=== PATIENT | female | born 1985 | race Caucasian/White ===

== ENCOUNTER 2020-06-17 09:16 | Emergency (ER) | payer OTHER, SELFPAY ==
[2020-06-17 09:21] VITALS: BP 116/87; PULSE 92; RESP 18; TEMP 37.1; O2SAT 100
--- NOTE | 2020-06-17 09:54 | ED.SKABFB ---
HPI - Skin/Abscess/Foreign Bdy General Chief complaint: Skin/Abscess/Foreign Body Stated complaint: rash on arms/legs Time Seen by Provider: 06/17/20 09:30 Source: patient Mode of arrival: ambulatory Limitations: no limitations History of Present Illness HPI narrative: Noreen Maier is a 34 yo female wiyh a PMH of anxiety, ADD, [facility] with complaints of rash on medial side of both arms and around waistband. 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 EYES: Denies visual changes, redness, discharge. ENT: Denies rhinorrhea, congestion, sore throat, otalgia. CARDIOVASCULAR: Denies chest pain, palpitations, edema. RESPIRATORY: Denies dyspnea, wheezing, cough GASTROINTESTINAL: Denies abdominal pain, nausea, vomiting, diarrhea. GENITOURINARY: Denies dysuria, hematuria, abnormal discharge SKIN: Rash on arms and abdomen NEUROLOGIC: Denies numbness, or focal weakness. PSYCHIATRIC: Denies anxiety or depression. [facility] Past Medical History Medical History Anxiety Overweight (BMI 25.0-29.9) Seizure disorder remote history. 2 seizures 10 years ago. Family History Family History Other No acute medical problems Social History Social History (Updated 06/17/20 @ 09:56 by Nidhi Hercules CNP) Smoking status: Former smoker Gender identity (if verbalized by the patient): Female Exam Narrative: Exam Narrative: GENERAL: This is a well-nourished, well-developed patient, in mild distress. HEAD: normocephalic, atraumatic. EYES: PERRL. Sclera clear/white. Vision is grossly intact. EARS: External ears normal, auditory canals clear and without drainage, TMs normal without perforation. Hearing grossly intact. NOSE: External nose normal without nasal discharge, nares without redness, no rhinorrhea. THROAT: Mucous membranes moist, posterior pharynx NECK: Neck supple, non-tender CARDIOVASCULAR: Regular rate and rhythm without murmurs, gallops, or rubs. RESPIRATORY: Clear to auscultation. Breath sounds equal bilaterally. No wheezes, rales, or rhonchi. GASTROINTESTINAL: Abdomen soft, non-tender, SKIN: warm, intact with with heavy rash on medial upper arms both arms and across abdomen, a few spots on upper thighs, waistline-no lesions between fingers or toes NEURO: awake, alert, and oriented to person, place and time. There were no obvious focal neurologic abnormalities. Steady gait EXTREMITIES: Normal range of motion. BACK: Nontender without deformity Course Course Emergency Course: Patient came to [facility] with rash Treated with triamcinolone and then permethrin as a secondary treatment if Triamcinolone does not work-keep arms covered warm handling her younger children Vital Signs Vital signs: Vital Signs Temperature 98.8 F 06/17/20 09:21 Pulse Rate 92 06/17/20 09:21 Respiratory Rate 18 06/17/20 09:21 Blood Pressure 116/87 06/17/20 09:21 Pulse Oximetry 100 06/17/20 09:21 Temperature 98.8 F 06/17/20 09:21 Pulse Rate 92 06/17/20 09:21 Respiratory Rate 18 06/17/20 09:21 Blood Pressure 116/87 06/17/20 09:21 Pulse Oximetry 100 06/17/20 09:21 MDM - Skin/Abscess/Foreign Bdy Differential Diagnosis Differential diagnosis: Likely urti
== END 2020-06-17 10:03 | disposition home or self-care (01) ==
PROVIDERS: Emergency Provider Nurse Practitioner; PCP Family Medicine
DX: L50.9 Urticaria, unspecified (principal); Z87.891 Personal history of nicotine dependence; F41.9 Anxiety disorder, unspecified
CPT/HCPCS: 99213; G0463

== ENCOUNTER 2020-10-10 02:57 | Emergency (ER) | payer OTHER, SELFPAY ==
[2020-10-10 03:02] VITALS: BP 146/92; PULSE 104; RESP 20; TEMP 36.2; O2SAT 100
[2020-10-10] MEDS: diazePAM (*CRX) 5 MG TABLET PO (04:04)
[2020-10-10] MEDS: KETOROLAC (*BKC) 60 MG/2 ML VIAL IM (04:04)
--- NOTE | 2020-10-10 04:57 | ED.GENADULT ---
HPI - General Adult General Chief complaint: Extremity Injury, Upper Stated complaint: left arm pain Time Seen by Provider: 10/10/20 03:05 History of Present Illness HPI narrative: Patient is a 34-year-old female who presents ER with left upper extremity discomfort. 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 Reports has been having cramping in her left shoulder/back and is also having pain in her forearm. Slowly progressive over the last day. No numbness or tingling. Has increased pain also has closing her hand. Has made a makeshift sling out of Moy wrap to help with her discomfort. Related Data Home Medications Medication Instructions Recorded Confirmed acetaminophen-codeine 1 tablet PO Q4H PRN 06/17/20 06/17/20 [[id number]] alprazolam 2 mg PO BID 06/17/20 06/17/20 dextroamphetamine-amphetamine 10/10/20 Allergies Allergy/AdvReac Type Severity Reaction Status Date / Time amoxicillin Allergy Mild RASH Verified 10/10/20 03:06 Penicillins Allergy Mild RASH Verified 10/10/20 03:06 Review of Systems Review of Systems: All systems reviewed & are unremarkable except as noted in HPI and below Constitutional: Constitutional: Denies chills, Denies fever(s) and Denies weakness Musculoskeletal: Musculoskeletal: Reports back pain, Denies arthralgias, Denies joint swelling and Reports muscle cramps Comments: No neck pain Neurologic: Denies focal weakness and Denies numbness PMFSH Past Medical History Medical History (Updated 10/10/20 @ 05:17 by Hilario Dominguez MD) Anxiety Overweight (BMI 25.0-29.9) Seizure disorder remote history. 2 seizures 10 years ago. Surgical History Surgical History (Updated 10/10/20 @ 04:59 by Hilario Dominguez MD) No history of previous surgery Family History Family History Other No acute medical problems Social History Social History (Updated 06/17/20 @ 09:56 by Nidhi Hercules CNP) Smoking status: Former smoker Gender identity (if verbalized by the patient): Female Exam Narrative: Exam Narrative: GENERAL: Well-appearing, well-nourished, and in no acute distress. HEAD: Normocephalic, atraumatic. NECK: Supple. No midline cervical spine tenderness or paraspinal muscular tenderness. CHEST: Clear to auscultation. No respiratory distress. HEART: Regular rate and rhythm. Normal peripheral pulses. EXTREMITIES: Range of motion intact in shoulder and elbow and wrist as well as the hand and left upper extremity however patient has positive carpal tunnel compression test on left side. Increased pain with making a fist. Back: Left trapezius with tenderness and spasm with palpation. No midline tenderness of the thoracic or lumbar spine. SKIN: Warm, dry, no rash. NEURO: No focal deficits. Alert and oriented x3. PSYCH: Normal mood and affect. Course Course Emergency Course: Significant improvement in pain with Toradol and Valium. Patient given sling for comfort. Discussed diagnosis and treatment plan. Patient verbalized understanding. Seems to be a mechanical process from injury as opposed to something more sinister or concerning such as disc herniation or spinal epidural abscess. No infectious symptoms neurologic deficit. Also discussed possibility of tunnel syndrome in the left wrist. Patient does have a splint at home that she could wear. Vital Signs Vital signs: Vital Signs Temperature 97.1 F L 10/10/20 03:02 Pulse Rate 104 H 10/10/20 03:02 Respiratory Rate 20 10/10/20 03:02 Blood Pressure 146/92 H 10/10/20 03:02 Pulse Oximetry 100 10/10/20 03:02 Temperature 97.1 F L 10/10/20 03:02 Pulse Rate 104 H 10/10/20 03:02 Respiratory Rate 20 10/10/20 03:02 Blood Pressure 146/92 H 10/10/20 03:02 Pulse Oximetry 100 10/10/20 03:02 Medical Decision Making Vital Signs Vital Signs: Vital Signs Temperature 97.1
[2020-10-10 05:36] VITALS: BP 119/73; PULSE 83; RESP 16; O2SAT 97
== END 2020-10-10 05:38 | disposition home or self-care (01) ==
PROVIDERS: Emergency Provider Emergency Medicine; PCP Family Medicine
DX: M62.838 Other muscle spasm (principal); G56.02 Carpal tunnel syndrome, left upper limb; F41.9 Anxiety disorder, unspecified; E66.3 Overweight; Z87.891 Personal history of nicotine dependence
CPT/HCPCS: 96372; 99283; A4565; A9270; J1885

== ENCOUNTER 2021-09-21 00:57 | Emergency (ER) | payer OTHER, SELFPAY ==
[2021-09-21 01:03] VITALS: BP 119/80; PULSE 89; RESP 20; TEMP 36.8; O2SAT 99
--- NOTE | 2021-09-21 01:18 | ED.WOUNDLAC ---
HPI - Wound/Laceration General Chief Complaint: Wound/Laceration Stated Complaint: cut on left hand Source: patient and RN notes reviewed Mode of arrival: ambulatory Limitations: no limitations History of Present Illness HPI narrative: patient was working on some crafts when scissors slipped and impaled into her left hand. Onset (ago): minute(s) (10) Extremity Location: Left: hand Place: home Patient tetanus UTD: Yes Context: accidental Associated symptoms: pain Treatments prior to arrival: bandage Related Data Home Medications Medication Instructions Recorded Confirmed alprazolam 2 mg PO BID 06/17/20 09/21/21 Allergies Allergy/AdvReac Type Severity Reaction Status Date / Time amoxicillin Allergy Mild RASH Verified 09/21/21 01:09 morphine Allergy Mild Hives Verified 09/21/21 01:09 Penicillins Allergy Mild RASH Verified 09/21/21 01:09 Review of Systems Review of Systems: All systems reviewed & are unremarkable except as noted in HPI and below PMFSH Past Medical History Medical History Anxiety Overweight (BMI 25.0-29.9) Seizure disorder remote history. 2 seizures 10 years ago. Surgical History Surgical History No history of previous surgery Family History Family History Other No acute medical problems Social History Social History Smoking status: Former smoker Gender identity (if verbalized by the patient): Female Exam Const: General: healthy appearing, no acute distress and alert Nutritional Appearance: well nourished Orientation/consciousness: patient oriented x3 HENMT: Head: normal to inspection Ears: external ears normal Eyes: Conjunctivae: conjunctivae normal Pupils: Equal, round and reactive pupils present EOM: EOMs intact bilaterally Neck: Neck: normal visual inspection Resp: Effort & Inspection: normal respiratory effort Auscultation: clear to auscultation bilaterally Cardio: Rate: regular rate Rhythm: regular rhythm GI: GI Palp: Yes Soft to palpation and No Tenderness to palpation present (GI) Auscultation: normal bowel sounds Back/Spine/Pelvis: Cervical Spine: cervical ROM normal Thoracic/Lumbar Spine: thoraco-lumbar ROM normal Skin: General skin exam: normal color Rashes: no rashes Wounds: wounds noted ( Over the 1st metacarpal) laceration left hand size (1 cm) Neuro: General: patient oriented x3, moves all extremities, no meningeal signs, no focal motor deficits and CN's II-XI intact bilaterally Speech: normal speech Gait exam (Neuro): Normal gait present Extrem: General: normal to inspection and no clubbing, cyanosis or edema Psych: Appearance: grossly normal and well kempt Mental Status: mental status grossly normal Affect: normal affect Attitude: cooperative Course Vital Signs Vital signs: Vital Signs Temperature 36.8 C 09/21/21 01:03 Pulse Rate 89 09/21/21 01:03 Respiratory Rate 20 09/21/21 01:03 Blood Pressure 119/80 09/21/21 01:03 Pulse Oximetry 99 09/21/21 01:03 Temperature 36.8 C 09/21/21 01:03 Pulse Rate 87 09/21/21 01:50 Respiratory Rate 16 09/21/21 01:50 Blood Pressure 124/80 09/21/21 01:50 Pulse Oximetry 99 09/21/21 01:50 Procedures Laceration Laceration 1: Date: 09/21/21 Site: hand Side (If applicable): left Description: linear Depth: simple, single layer Local Anesthetic: lidocaine 1% and with epi Amount of anesthesia used (mL): 3 Pre-repair: wound explored and irrigated ====== Skin Level ====== Skin layer closed with: nylon Size (cm): 4-0 Number of sutures: 3 Technique: running ====== Subcutaneous Layer ====== ====== Muscle Layer ====== ====== Tendon Layer ====== Discharge
[2021-09-21] MEDS: LIDO 1%/EPINEPHRINE 1:100,000 20 ML VIAL INFILTRATE (01:25)
[2021-09-21] MEDS: NEOMYCIN/POLYMYXIN/BACITRACIN OINTMENT PACKET 1 PACKET (01:40)
[2021-09-21 01:50] VITALS: BP 124/80; PULSE 87; RESP 16; O2SAT 99
== END 2021-09-21 02:00 | disposition home or self-care (01) ==
PROVIDERS: Emergency Provider Emergency Medicine; PCP Family Medicine
DX: S61.412A Laceration without foreign body of left hand, initial encounter (principal); W45.8XXA Other foreign body or object entering through skin, initial encounter
CPT/HCPCS: 12001; 99282

== ENCOUNTER 2023-08-23 13:39 | Emergency (ER) | payer OTHER, SELFPAY ==
[2023-08-23 13:41] VITALS: BP 98/78; PULSE 89; RESP 20; TEMP 36.7; O2SAT 98
--- NOTE | 2023-08-23 13:51 | ED.NECK ---
HPI - Neck Pain/Injury General Chief Complaint: Neck Pain/Injury Stated Complaint: neck pain Time Seen by Provider: 08/23/23 13:41 Source: patient and family Mode of arrival: ambulatory Limitations: no limitations History of Present Illness HPI Narrative: Patient is a 37-year-old female with left neck pain for the past 2 days. No acute injury. It radiates up the left neck into the left scalp and right scalp. No kidney problems. No concerns for with her tubes tied. She is not driving. complaint: neck pain Onset (ago): day(s) (2) Place: home Radiation: left lateral, head, occiput and left shoulder Severity: severe Severity scale (1-10): 8 Quality: burning, sharp and stabbing Duration: constant Relieving factors: none Exacerbating factors: movement of extremity and movement of neck Associated symptoms: none Treatments prior to arrival: none Related Data Home Medications Medication Instructions Recorded Confirmed alprazolam 2 mg tablet 2 mg PO BID 06/17/20 09/21/21 Allergies Allergy/AdvReac Type Severity Reaction Status Date / Time amoxicillin Allergy Mild RASH Verified 09/21/21 01:09 morphine Allergy Mild Hives Verified 09/21/21 01:09 Penicillins Allergy Mild RASH Verified 09/21/21 01:09 Review of Systems Review of Systems: All systems reviewed & are unremarkable except as noted in HPI and below Constitutional: Constitutional: Reports no additional constitutional complaints Eyes: Eyes: Reports no additional eye complaints ENT: Reports system reviewed and no additional complaints, except as documented Cardiovascular: Cardiovascular: Reports no additional cardiovascular complaints Respiratory: Respiratory: Reports no additional respiratory complaints Gastrointestinal: Gastrointestinal: Reports no additional gastrointestinal complaints Genitourinary: Genitourinary: Reports no additional female genitourinary complaints Musculoskeletal: Musculoskeletal: Reports no additional musculoskeletal complaints Integumentary/Breasts: Skin/Breast: Reports system reviewed and no additional complaints, except as docu Neurologic: Reports system reviewed and no additional complaints, except as documented Psychiatric: Psychiatric: Reports no additional psychiatric complaints Endocrine: Endocrine: Reports no additional endocrine complaints Hematologic/Lymphatic: Hematologic/Lymphatic: Reports no additional hematologic/lymphatic complaints Allergic/Immunologic: Allergic/Immunologic: Reports no additional allergic/immunologic complaints PMFSH Past Medical History Medical History Anxiety Overweight (BMI 25.0-29.9) Seizure disorder remote history. 2 seizures 10 years ago. Surgical History Surgical History No history of previous surgery Family History Family History Other No acute medical problems Social History Social History Smoking status: Former smoker Gender identity (if verbalized by the patient): Female Exam Const: General: healthy appearing Nutritional Appearance: well nourished Orientation/consciousness: patient oriented x3 HENMT: Head: normal to inspection Ears: external ears normal Face/Nose/Sinus: Normal external nose present Eyes: Conjunctivae: conjunctivae normal Pupils: Equal, round and reactive pupils present EOM: EOMs intact bilaterally Neck: Neck: normal visual inspection Other: Tender to palpation to the left neck muscles and movement of the neck. Chest: Chest palpation & inspection: normal inspection of the chest Resp: Effort & Inspection: normal respiratory effort Auscultation: clear to auscultation bilaterally Cardio: Rate: regular rate Rhythm: regular rhythm Heart sounds: no murmurs GI: Inspection: non-distended GI Pal
[2023-08-23] MEDS: ORPHENADRINE CITRATE 30 MG/ML 2 ML VIAL 60 MG IM (13:56)
[2023-08-23] MEDS: KETOROLAC (*BKC) 60 MG/2 ML VIAL IM (13:56)
[2023-08-23 14:23] VITALS: BP 100/80; PULSE 88; RESP 20; TEMP 36.7; O2SAT 98
== END 2023-08-23 14:28 | disposition home or self-care (01) ==
PROVIDERS: Emergency Provider Emergency Medicine; PCP Family Medicine
DX: M43.6 Torticollis (principal); Z87.891 Personal history of nicotine dependence
CPT/HCPCS: 96372; 99284; J1885; J2360

== ENCOUNTER 2023-09-04 06:56 | Emergency (ER) | payer OTHER, SELFPAY ==
--- NOTE | ~2023-09-04 | CT_ITS ---
Noncontrast CT scan of the cervical spine Technique: Multiple contiguous axial [address] images of the cervical spine were obtained and rec onstructed in 2D sagittal and coronal planes on the acquisition scanner. Dose reduction technique was used on this scan by utilizing automated exposure control, adjustment of the mA and/or kV according to patient size. The dose-length product (DLP) was 154.55 mGy-cm. Clinical History: Pain Findings: No fractures or dislocations. There is mild reversal of the normal cervical lordosis. The intervertebral disc spaces are preserved. No prevertebral soft tissue swelling. Impression: No fracture or subluxation of the cervical spine. Reviewed, dictated and finalized at location . [employer] Impression: No fracture or subluxation of the cervical spine.
[2023-09-04 06:56] VITALS: BP 134/89; PULSE 91; RESP 20; TEMP 36.8; O2SAT 100
--- NOTE | 2023-09-04 07:09 | ED.NECK ---
HPI - Neck Pain/Injury General Chief Complaint: Neck Pain/Injury Stated Complaint: neck pain Time Seen by Provider: 09/04/23 07:09 Source: patient Mode of arrival: ambulatory Limitations: no limitations History of Present Illness HPI Narrative: 57-year-old female with a history of anxiety, seizure disorder presented to the ER with -- right-sided neck pain which radiates it is to the head. The pain is present on the right side of the neck posteriorly. No history of trauma. No motor or sensory loss both upper extremities. No difficulty walking. No bladder or bowel problems. The pain started 2 hours ago. The patient had a similar pain on the left side of the neck. MD complaint: neck pain Onset (ago): hour(s) ( Started 2 hours ago) Place: home Radiation: head Severity: moderate Quality: aching Duration: constant Relieving factors: none Exacerbating factors: movement of neck Associated symptoms: none Treatments prior to arrival: none Related Data Home Medications Medication Instructions Recorded Confirmed alprazolam 2 mg tablet 0.5 mg PO BID 06/17/20 09/04/23 Allergies Allergy/AdvReac Type Severity Reaction Status Date / Time amoxicillin Allergy Mild RASH Verified 09/04/23 07:26 morphine Allergy Mild Hives Verified 09/04/23 07:26 Penicillins Allergy Mild RASH Verified 09/04/23 07:26 latex Allergy Unknown Verified 09/04/23 07:26 Review of Systems Review of Systems: All systems reviewed & are unremarkable except as noted in HPI and below Constitutional: Constitutional: Reports as per HPI and Reports no additional constitutional complaints Eyes: Eyes: Reports as per HPI and Reports no additional eye complaints ENT: Reports system reviewed and no additional complaints, except as documented and Reports as per HPI Cardiovascular: Cardiovascular: Reports as per HPI and Reports no additional cardiovascular complaints Respiratory: Respiratory: Reports as per HPI and Reports no additional respiratory complaints Gastrointestinal: Gastrointestinal: Reports as per HPI and Reports no additional gastrointestinal complaints Genitourinary: Genitourinary: Reports no additional female genitourinary complaints and Reports as per HPI Integumentary/Breasts: Skin/Breast: Reports system reviewed and no additional complaints, except as docu and Reports as per HPI Neurologic: Reports system reviewed and no additional complaints, except as documented and Reports as per HPI Psychiatric: Psychiatric: Reports no additional psychiatric complaints and Reports as per HPI Endocrine: Endocrine: Reports no additional endocrine complaints and Reports as per HPI Hematologic/Lymphatic: Hematologic/Lymphatic: Reports no additional hematologic/lymphatic complaints and Reports as per HPI Allergic/Immunologic: Allergic/Immunologic: Reports no additional allergic/immunologic complaints and Reports as per HPI PMFSH Past Medical History Medical History Anxiety Overweight (BMI 25.0-29.9) Seizure disorder remote history. 2 seizures 10 years ago. Surgical History Surgical History No history of previous surgery Family History Family History Other No acute medical problems Social History Social History Smoking status: Former smoker Gender identity (if verbalized by the patient): Female Exam Const: General: healthy appearing and no acute distress Nutritional Appearance: well nourished Orientation/consciousness: patient oriented x3 Limitations: no limitations HENMT: Head: normal to inspection Ears: external ears normal Face/Nose/Sinus: Normal external nose present Face and sinus: normal facial exam Mouth: Yes Normal oral and palatal mucosa present Throat: posterior oropharynx normal Eyes: Conjunctivae:
== END 2023-09-04 08:35 | disposition left against medical advice (07) ==
PROVIDERS: Emergency Provider Internal Medicine Critical Care Medicine; PCP Family Medicine
DX: S16.1XXA Strain of muscle, fascia and tendon at neck level, initial encounter (principal); Z79.899 Other long term (current) drug therapy; Z87.891 Personal history of nicotine dependence; X58.XXXA Exposure to other specified factors, initial encounter
CPT/HCPCS: 72125; 99284

== ENCOUNTER 2023-09-27 18:58 | Emergency (ER) | payer OTHER, SELFPAY ==
[2023-09-27 19:00] VITALS: BP 138/98; PULSE 98; RESP 18; TEMP 36.3; O2SAT 100
--- NOTE | 2023-09-27 19:07 | ED.DENTAL ---
HPI - Dental/Oral General Chief complaint: Dental/Oral Stated complaint: dental pain Time Seen by Provider: 09/27/23 18:59 Source: patient Mode of arrival: ambulatory Limitations: no limitations History of Present Illness HPI Narrative: Patient is a 37-year-old female with dental pain. The pain is in the upper right dentition. She broke her filling this week. She was sent to the ER from her dentist. Complaint: tooth pain Location: Tooth # ( Tooth 1. Or 2.) Onset (ago): day(s) (1) Duration: constant Severity: moderate Severity scale (1-10): 8 Relieving factors: nothing Exacerbating factors: nothing Context: history of dental caries Treatment prior to arrival: none Related Data Allergies Allergy/AdvReac Type Severity Reaction Status Date / Time amoxicillin Allergy Mild RASH Verified 09/27/23 19:24 morphine Allergy Mild Hives Verified 09/27/23 19:24 Penicillins Allergy Mild RASH Verified 09/27/23 19:24 latex Allergy Unknown Verified 09/27/23 19:24 Review of Systems Review of Systems: All systems reviewed & are unremarkable except as noted in HPI and below Constitutional: Constitutional: Reports no additional constitutional complaints Eyes: Eyes: Reports no additional eye complaints ENT: Reports system reviewed and no additional complaints, except as documented Cardiovascular: Cardiovascular: Reports no additional cardiovascular complaints Respiratory: Respiratory: Reports no additional respiratory complaints Gastrointestinal: Gastrointestinal: Reports no additional gastrointestinal complaints Genitourinary: Genitourinary: Reports no additional female genitourinary complaints Musculoskeletal: Musculoskeletal: Reports no additional musculoskeletal complaints Integumentary/Breasts: Skin/Breast: Reports system reviewed and no additional complaints, except as docu Neurologic: Reports system reviewed and no additional complaints, except as documented Psychiatric: Psychiatric: Reports no additional psychiatric complaints Endocrine: Endocrine: Reports no additional endocrine complaints Hematologic/Lymphatic: Hematologic/Lymphatic: Reports no additional hematologic/lymphatic complaints Allergic/Immunologic: Allergic/Immunologic: Reports no additional allergic/immunologic complaints PMFSH Past Medical History Medical History Anxiety Overweight (BMI 25.0-29.9) Seizure disorder remote history. 2 seizures 10 years ago. Surgical History Surgical History No history of previous surgery Family History Family History Other No acute medical problems Social History Social History Smoking status: Former smoker Gender identity (if verbalized by the patient): Female Exam Const: General: healthy appearing Nutritional Appearance: well nourished Orientation/consciousness: patient oriented x3 HENMT: Head: normal to inspection Ears: external ears normal Face/Nose/Sinus: Normal external nose present Other: Right upper jaw tooth number 2 and 3 have dental caries with open dentition with loss of filling; it appears tooth 1. Is missing Eyes: Conjunctivae: conjunctivae normal Pupils: Equal, round and reactive pupils present EOM: EOMs intact bilaterally Neck: Neck: normal visual inspection Chest: Chest palpation & inspection: normal inspection of the chest Resp: Effort & Inspection: normal respiratory effort Auscultation: clear to auscultation bilaterally Cardio: Rate: regular rate Rhythm: regular rhythm Heart sounds: no murmurs GI: Inspection: non-distended GI Palp: Yes Soft to palpation, No Tenderness to palpation present (GI) and No Guarding due to palpation present (GI) Auscultation: normal bowel sounds : General: Yes bladder normal to palpation Back/Spine/Pelv
[2023-09-27] MEDS: CLINDAMYCIN HCL 150 MG CAP 300 MG PO (19:20)
[2023-09-27] MEDS: KETOROLAC (*BKC) 60 MG/2 ML VIAL IM (19:22)
== END 2023-09-27 19:29 | disposition home or self-care (01) ==
LOC: CHSED 19:31
PROVIDERS: Emergency Provider Emergency Medicine; PCP Family Medicine
DX: R68.84 Jaw pain (principal); Z87.891 Personal history of nicotine dependence
CPT/HCPCS: 96372; 99283; A9270; J1885

== ENCOUNTER 2024-04-23 17:47 | Emergency (ER) | payer OTHER, SELFPAY ==
[2024-04-23 17:47] VITALS: BP 135/92; PULSE 78; RESP 16; TEMP 36.6; O2SAT 99
--- NOTE | 2024-04-23 18:04 | ED.SKABFB ---
HPI - Skin/Abscess/Foreign Bdy General Chief complaint: Skin/Abscess/Foreign Body Stated complaint: rash Time Seen by Provider: 04/23/24 18:04 Source: patient Mode of arrival: ambulatory Limitations: no limitations History of Present Illness HPI narrative: this is a 38-year-old female that presents with rash located on her right lower back and arms after she was cutting down a tree and got exposed to irritant plants like poison oak/poison sara, currently no audible wheezing no shortness of breath no fever chills no nausea vomiting or abdominal pain. complaint: rash Onset (ago): day(s) Severity: mild Related Data Allergies Allergy/AdvReac Type Severity Reaction Status Date / Time amoxicillin Allergy Mild RASH Verified 04/23/24 18:03 morphine Allergy Mild Hives Verified 04/23/24 18:03 Penicillins Allergy Mild RASH Verified 04/23/24 18:03 latex Allergy Unknown Verified 04/23/24 18:03 Review of Systems Review of Systems: All systems reviewed & are unremarkable except as noted in HPI and below PMFSH Past Medical History Medical History Anxiety Overweight (BMI 25.0-29.9) Seizure disorder remote history. 2 seizures 10 years ago. Surgical History Surgical History No history of previous surgery Family History Family History Other No acute medical problems Social History Social History Smoking status: Former smoker Gender identity (if verbalized by the patient): Female Exam Const: General: healthy appearing and no acute distress Nutritional Appearance: well nourished Orientation/consciousness: patient oriented x3 Limitations: no limitations Eyes: Conjunctivae: conjunctivae normal Pupils: Equal, round and reactive pupils present EOM: EOMs intact bilaterally Neck: Neck: normal visual inspection, no lymphadenopathy and no meningeal signs Resp: Effort & Inspection: normal respiratory effort Auscultation: clear to auscultation bilaterally Cardio: Rate: regular rate Rhythm: regular rhythm GI: Auscultation: normal bowel sounds Skin: Other: Urticarial rash located on her right lower back and arms Extrem: General: normal to inspection, no clubbing, cyanosis or edema and no pedal edema Course Course Emergency Course: patient with rash / contact dermatitis for exposure to plants received a dose of 80mg IM Depo-Medrol. Critical Care Time Critical Care Time Critical Care Time: No Discharge Plan Discharge Clinical Impression: Contact dermatitis Qualifiers: Contact dermatitis type: irritant Contact dermatitis trigger: non-food plants Qualified Code(s): L24.7 - Irritant contact dermatitis due to plants, except food Patient Disposition: Home, Self-Care Condition: Stable Instructions: Antibiotic Form, Contact Dermatitis (ED), Poison Sara (ED) Additional Instructions: Advised to take medicine as prescribed, take Zyrtec [id number] daily the next 7 days. Follow up with primary if symptoms persist or worsen. Prescriptions: New prednisone 20 mg tablet 20 mg PO DAILY 5 Days Qty: 5 0RF triamcinolone acetonide 0.1 % ointment 1 applic topical TID 7 Days Qty: 30 0RF Rx Instructions: apply to affected area famotidine [Pepcid] 20 mg tablet 20 mg PO DAILY Qty: 7 0RF Follow-up/Referrals: Sedrick Nuñez MD [Primary Care Provider] -
[2024-04-23] MEDS: methylPREDNISolone ACETATE 40 MG/ML VIAL 80 MG IM (18:09)
[2024-04-23 18:30] VITALS: BP 135/92; PULSE 78; RESP 16; TEMP 36.6; O2SAT 99
== END 2024-04-23 18:30 | disposition home or self-care (01) ==
LOC: CHSED 18:17
PROVIDERS: Emergency Provider Emergency Medicine; PCP Family Medicine
DX: L24.7 Irritant contact dermatitis due to plants, except food (principal); Z87.891 Personal history of nicotine dependence
CPT/HCPCS: 96372; 99283; J1010

== ENCOUNTER 2024-11-08 17:18 | Emergency (ER) | payer OTHER, SELFPAY ==
--- NOTE | ~2024-11-08 | XR_ITS ---
EXAM: XR ankle RT min 3V DATE: 11/08/2024 17:35 HISTORY: fall/twisted Rt. ankle with lateral pain and swelling. . COMPARISON: None available. FINDINGS: Normal mineralization. No fracture or dislocation. No lytic or blastic lesion. Joint space s are maintained. No erosion or periosteal change. Soft tissues within normal limits. IMPRESSION: No acute osseous finding in the right ankle. Reviewed, dictated and finalized at location K.
[2024-11-08 17:20] VITALS: BP 143/93; PULSE 92; RESP 18; TEMP 36.3; O2SAT 98
--- OUTSIDE RECORDS SUMMARY | 2024-11-08 17:23 | XMS_ITS | Clinical Summary ---
Author Organization [facility] Address [facility] [place] [address] Care Team Providers Care Hypo Dipper Name Role Phone Manisha Sweet MD Primary Care Provider [phone] Allergies Active Allergy Reactions Criticality Noted Date Comments Amoxicillin Unknown 03/21/2024 Latex Rash Low 09/02/2022 Penicillins Unknown 09/02/2022 Medications ALPRAZolam (XANAX) 0.5 MG tablet Take 0.5 mg by mouth nightly as needed for Sleep. Active Social History Tobacco Use Types Packs/Day Years Used Date Smoking Tobacco: Former Cigarettes Tobacco Cessation:Counseling Given: Not Answered Comments No Sex and Gender Information Value Date Recorded Sex Assigned at Not on file Legal Sex Female 4:53 AM [employer] Gender Identity Not on file Sexual Orientation Not on file Last Filed Vital Signs Vital Sign Reading Time Taken Comments Blood Pressure 147/87 03/21/2024 12:54 PM CDT Pulse 94 03/21/2024 12:54 PM CDT Temperature 36.5 C (97.7 F) 03/21/2024 12:54 PM CDT Respiratory Rate 20 03/21/2024 12:54 PM CDT Oxygen Saturation 97% 03/21/2024 12:54 PM CDT Inhaled Oxygen Concentration - - Weight 68 kg (150 lb) 03/21/2024 12:54 PM CDT Height 154.9 cm (5' 1 ) 03/21/2024 12:54 PM CDT Body Mass Index 28.34 03/21/2024 12:54 PM CDT Plan of Treatment Health Maintenance Due Date Last Done Comments Annual Physical 1990 Hepatitis C 2005 DTaP, Tdap and Td Vaccines (1 - Tdap) 2006 Hepatitis B Vaccines (1 of 3 - 19+ 3-dose series) 2006 COVID-19 Vaccine ( - season) 2024 09/28/2021, 09/24/2020, 09/03/2020 Influenza Adult (#1) 2024 09/28/2021, 05/16/2019, 06/05/2018, Additional history exists Cervical Cancer Screening Pap Smear (Age 30 to 64) Every 3 Years 08/01/2026 08/01/2023, 08/01/2023 Cervical Cancer Screening Pap with HPV Testing (Age 30 to 64) Every 5 Years 08/01/2028 08/01/2023 Cervical Cancer Screening with HPV 08/01/2028 HPV Vaccines Aged Out No longer eligi ble based on patient's age to complete this topic Meningococcal B Vaccine Aged Out No l onger eligible based on patient's age to complete this topic Meningococcal Vaccine Aged Out No lauro kareem eligible based on patient's age to complete this topic Pneumococcal Vaccine: Pediatrics (0 to 5 Years) and At-Risk Patients (6 to 64 Years) Aged Out No longer eligible based on patient's age to complete this topic RSV Immunizations Under 20 Months Aged Out No longer eligible based on patient's age to complete this topic [place] [address] [address] [place] [address] Care Teams Hypo Dipper Relationship Specialty Start Date End Date Manisha Sweet MD [address] [place] [phone] PCP - General FAMILY PRACTICE 09/02/22
--- OUTSIDE RECORDS SUMMARY | 2024-11-08 17:23 | XMS_ITS | Data Portability ---
Author Organization [facility] [place] Address [address] [place] [address] Care Team Providers Care Piano Accompanist Name Role Phone [facility] Primary Care Provider Assessment Encounter Date Assessment Date Assessment LastModified by Organization Details LastModified Time 08/01/2023 08/01/2023 Annual gynecological exam performed. Patient will come back in a year unless there are new symptoms. [email or web address] Not available 08/01/2023 14:09:49 Plan of Treatment Reminders Order Date Submit Date Provider Last Modified By Organization Details Last Modified Time Details Appointments None recorded. Lab unlisted lab - [facility] swab plus, ADRI 2023 024 [facility] (Lab), [address], [place], [address], 4 15:47:32 Referral None recorded. Procedures None recorded. Surgeries None recorded. Imaging None recorded. Medication Orders Diflucan 150 mg tablet 2023 024 [id number], [address] [place], [address], 4 00:15:51 Patient TargetsNo targets recorded. Patient InstructionsNo instructions recorded. Reason for Referral None Reported. Results Created Date Observation Date Name Description Value Unit Range Abnormal Flag Note LastModifiedBy Organization Detail LastModifiedTime 05/15/20 24 05/15/2024 [facility] bacterial vaginosis (bv), tma Positi ve negati ve abnormal Not Available [facility] (Lab) [address], [place], [address], 05/18/2024 15:47:32 05/15/20 24 05/15/2024 [facility] laurent species, tma Negati ve negati ve Not Available [facility] (Lab) [address] [place], [address], 05/18/2024 15:47:32 05/15/20 24 05/15/2024 [facility] laurent glabrata, tma Negati ve negati ve Not Available [facility] (Lab) [address], [place], [address], 05/18/2024 15:47:32 05/15/20 24 05/15/2024 [facility] AD[facility] trichomonas vaginalis, tma Negati ve negati ve Not Available [facility] (Lab) [address], [place], [address], 05/18/2024 15:47:32 05/15/20 24 05/15/2024 [facility] AD[facility] chlamydia trachomatis, PCR Negati ve negati ve Not Available [facility] (Lab) [address] [place], [address], 05/18/2024 15:47:32 05/15/20 24 05/15/2024 [facility], ADRI neisseria gonorrhoeae, PCR Negati ve negati ve Bacte rial vagin osis detec ts the follo wing bacte michael assoc iated with bacte rial vagin osis (BV): Lacto bacil mery (L. gasse ri, L. crisp atus and L. jense hima), Gardn erell a vagin craig, and Atopo bium vagin ae. A singl e quali tativ e resul t is repor iliana base on instr ument softw are to deter mine BV posit haley or negat haley statu s. The [facility]ia [facility] speci es group tests for C. albic ans, C. tropi calis , C. parap césar is, C. dubli niens is. Testi ng is perfo rmed using the Trans cript ion Media iliana Ampli ficat ion metho d. Tests for Alicia da glabr vivian, Trich omona s vagin craig, Chlam ydia trach omati s, and Neiss eria gonor rhoea e are also inclu ded in this panel . Not Available [facility] (Lab) [address], [place], [address], 05/18/2024 15:47:32 Result Notes None recorded. Problems Name Problem SNOMED Code Status Onset Date Resolution Date Notes Provider Name and Address Organization Details Recorded Time Normal pregnanc y in multigra ailyn [id number] 4106 Completed 201807/04/2021 Encounte r for suprvsn of normal pregnanc y, third trimeste r;Practi ce ID: 0001 Linn Contreras [facility], [facility] 11:08:11 Uterine size for dates discrepa ncy Completed 201807/04/2021 Uterine size-merlin e discrepa ncy, third trimeste r;Practi ce ID: 0001 Linn Contreras [facility], [facility] 11:11:29 Gestatio n period, 36 weeks [id number] Completed 201807/04/2021 36 weeks gestatio n of pregnanc y;Practi ce ID: 0001 Linn Contreras [facility], [facility] 11:07:34 Hyperten sive disorder Completed 201807/04/2021 Unspecif ied maternal hyperten any, third trimeste r;Practi ce ID: 0001 Linn simms, [facility] 11:07:44 Steriliz ation procedur e Completed 201807/04/2021 Encounte r for steriliz ation;Pr actice ID: 0001 Linn simms, [facility] 11:08:54 Single live [id number] Completed 201807/04/2021 Single live ;Pr actice ID: 0001 Linn simms, [facility] 11:08:50 Educatio n Completed 201807/04/2021 Encounte r for oth general cnsl and advice on contrace ption;Pr actice ID: 0001 Linn simms, [facility] 11:07:26 Pregnanc y test negative [id number] Completed 201807/04/2021 Encounte r for pregnanc y test, result negative ;Practic e ID: 0001 Linn simms [facility] 11:08:37 Procedur e on genitour inary system Completed 201907/04/2021 Encounte r for surgical aftcr followin g surgery on the sys;Prac edis ID: 0001 Linn simms [facility] 11:08:43 Postoper ative care Completed 201907/04/2021 Encounte r for surgical aftcr followin g surgery on the sys;Prac edis ID: 0001 Linn simms [facility] 11:08:31 Routine antenata l care Completed 201207/04/2021 Supervis ion of other normal pregnanc y;Venancioti ce ID: 0001 Linn simms [facility] 11:08:45 Delivery normal [id number] Completed 201207/04/2021 Normal delivery ;Practic e ID: 0001 Linn Rosadotz demi [facility] 11:07:22 Ill-defi marlena intestin al infectio n Completed 201207/04/2021 No Show Fee;Prac edis ID: 0001 Linn simms, [facility] 11:07:47 Postpart um care Completed 201207/04/2021 Postpart um follow-u p;Practi ce ID: 0001 Linn Contreras [facility], [facility] 11:08:33 Insertio n of intraute rine contrace ptive device Completed 201207/04/2021 INSERTIO N OF IUD;Prac edis ID: 0001 Linn Contreras [facility] 11:07:56 Leukocyt osis [id number] Completed 201207/04/2021 LEUKOCYT OSIS NOS;Prac edis ID: 0001 Linn Contreras [facility] 11:08:05 Vaginiti s and vulvovag initis Completed 201207/04/2021 Vaginiti s and vulvovag initis, unspecif ied;Prac edis ID: 0001 Linn Contreras [facility], [facility] 11:11:31 Irregula r intermen strual bleeding [id number] Completed 201207/04/2021 Metrorrh agia;Pra ctice ID: 0001 Linn Contreras [facility], [facility] 11:07:59 Pregnanc y detectio n examinat ion Completed 201807/04/2021 Encounte r for pregnanc y test, result positive ;Practic e ID: 0001 Linn Contreras [facility] 11:08:35 Threaten ed miscarri age [id number] Completed 201107/04/2021 Threaten ed , antepart um;Recor ded Elsewher e: No Locat ion: Gabino borjas [facility] S ource: EHR Radiology Scheduler jeff: N Practi ce ID: 0001 Syed lable Time: 11:00:00 AM Linn simms, [facility] 1 11:09:11 Antenata l screenin g Completed 201807/04/2021 Encounte r for antenata l screenin g for nuchal transluc ency;Rec orded Elsewher e: No [facility]: EHR Radiology Scheduler jeff: N Practi ce ID: 0001 Syed lable Time: 01:00:00 PM Linn simms, [facility] 11:07:12 Gestatio n period, 8 weeks [id number] Completed 201807/04/2021 8 weeks gestatio n of pregnanc y;Record ed Elsewher e: No [facility]at [facility] S ource: EHR Radiology Scheduler jeff: N Practi ce ID: 0001 Syed lable Time: 03:45:00 PM Linn simms, [facility] 1 11:07:42 At increase d risk of sexually transmit iliana infectio n [id number] Completed 201107/04/2021 Contact with or exposure to venereal diseases ;Recorde d Elsewher e: No [facility] S ource: EHR Radiology Scheduler jeff: N Practi ce ID: 0001 Syed lable Time: 01:00:00 PM Linn simms [facility] 1 11:07:16 Noninfla mmatory disorder of the vagina [id number] Completed 201107/04/2021 Other specifie d noninfla mmatory disorder s of vagina;R ecorded Elsewher e: No [facility] S ource: EHR Radiology Scheduler jeff: N Practi ce ID: 0001 Syed lable Time: 02:45:00 PM Linn simms [facility] 11:08:09 Gestatio n period, 38 weeks [id number] Completed 201807/04/2021 38 weeks gestatio n of pregnanc y;Record ed Elsewher e: No Locat ion: [facility] S ource: EHR Radiology Scheduler jeff: N Practi ce ID: 0001 Syed lable Time: 11:00:00 AM Linn simms [facility] 11:07:40 Left lower quadrant pain [id number] Completed 201007/04/2021 Abdomina l pain, left lower quadrant ;Practic e ID: 0001 Linn simms [facility] 11:08:02 Adult health examinat ion Completed 201007/04/2021 Routine general medical examinat ion at a health care facility ;Practic e ID: 0001 Linn Contreras [facility] 11:07:09 Speciali zed medical examinat ion Completed 201007/04/2021 Routine gynecolo gical examinat ion;Prac edis ID: 0001 Linn Contreras [facility] 11:08:52 Antenata l screenin g for malforma tion Completed 201807/04/2021 Encounte r for antenata l screenin g for malforma tions;Pr actice ID: 0001 Linn Contreras [facility], [facility] 11:07:15 Placenta previa [id number] Completed 201807/04/2021 Placenta previa specifie d as w/o hemor, second trimeste r;Practi ce ID: 0001 Linn Contreras [facility] 11:08:28 Gestatio n period, 24 weeks [id number] Completed 201807/04/2021 24 weeks gestatio n of pregnanc y;Practi ce ID: 0001 Linn Contreras [facility], [facility] 11:07:32 Rubella screenin g status [id number] Completed 201807/04/2021 Encounte r for antenata l screenin g, unspecif ied;Prac edis ID: 0001 Linn simms, [facility] 11:08:47 Labor and delivery complica iliana by heart rate anomaly [id number] Completed 201107/04/2021 ABNORMAL ITY IN HEART RATE OR RHYTHM, ANTEPART UM;Recor ded Elsewher e: No Locat ion: [facility] S ource: EHR Radiology Scheduler jeff: N Practi ce ID: 0001 Syed lable Time: 04:00:00 PM Linn Contreras [facility] 11:08:01 Family planning surveill ance Completed 201007/04/2021 Surveill ance of other contrace ptive method;R ecorded Elsewher e: No Locat ion: [facility] S ource: EHR Radiology Scheduler jeff: N Practi ce ID: 0001 Syed lable Time: 02:15:00 PM Lnin Contreras [facility], [facility] 11:07:28 Pregnanc y test positive [id number] Completed 201107/04/2021 Pregnanc y examinat ion or test, positive result;R ecorded Elsewher e: No Locat ion: [facility] S ource: EHR Radiology Scheduler jeff: N Practi ce ID: 0001 Syed lable Time: 11:00:00 AM Linn Contreras [facility], [facility] 11:08:39 Screenin g for malignan t neoplasm of cervix Completed 201007/04/2021 Screenin g for malignan t neoplasm s of the cervix;R ecorded Elsewher e: No Locat ion: Gabino borjas [facility] Angel Roberts ce ID: 0001 Syed lable Time: 11:30:00 AM Linn simms [facility] 1 11:08:48 Dysfunct ional uterine bleeding Completed 201207/04/2021 Other disorder s of menstrua tion and other abnormal bleeding from female genital tract;Re corded Elsewher e: No [facility] S ource: [facility] jeff: N Armando ce ID: 0001 Syed lable Time: 01:00:00 PM Linn Rosadotz [facility] 1 11:07:24 Amenorrh ea [id number] Completed 201107/04/2021 Absence of menstrua tion;Rec orded Elsewher e: No [facility] S ource: [facility] jeff: Angel Roberts ce ID: 0001 Syed lable Time: 09:30:00 AM Linn simms [facility] 1 11:07:10 Cyst of ovary [id number] Completed 201407/04/2021 Other and unspecif ied ovarian cyst;Rec orded Elsewher e: No Locat ion: [facility] S ource: [facility] jeff: Angel Roberts ce ID: 0001 Syed lable Time: 10:41:35 AM Linn Rosadotz demi [facility] 1 11:07:20 anatomy study Completed 201107/04[facility]20[facility];R ecorded Elsewher e: No Locat ion: [facility] S ource: [facility] jeff: Angel Roberts ce ID: 0001 Syed lable Time: 01:00:00 PM Linn Ben demi [facility] 1 11:07:30 Threaten ed prematur e labor - not delivere d [id number] Completed 201207/04/2021 Threaten ed prematur e labor, antepart um;Pract ice ID: 0001 Linn Contreras null, [facility] 1 11:09:22 Primigryocasta robertson [id number] Completed 201107/04/2021 Supervis ion of normal first pregnanc y;Practi ce ID: 0001 Linn Contreras null, [facility] 1 11:08:41 Problem Notes None recorded. Procedures Surgical History Date Name Laterality Status Provider Name and Address Organization Details Recorded Time 1 Date of Last Pap Smear completed Linn Contreras [facility] 07/04/2021 11:13:38 9 Tubal Ligation completed Linn Contreras [facility] 07/04/2021 11:19:45 Imaging Results None recorded. Procedure Notes None recorded. Medical Equipment None Reported. Allergies Allergen ID Allergen Name Allergen Category Reaction Reaction Severity Criticality Documentation Date Start Date Code Code System Note Provider Name and Address Organization Details Recorded Time 08661 amoxicill in medicatio n Not available Not available Not available 08/19/2020 723 RxNorm Comme nt: [facility]at [facility]; Not Available [facility] 0 14:14:53 63459 Product containin g penicilli n (product) medicatio n rash Not available Not available 08/19/2020 81119 8001 SNOMED React ion: rash; Comme nt: Locat ion: [facility]; Not Available [facility] 0 14:14:53 Medications Name Sig Start Date Stop Date Status Note LastModified by Organization Details LastModified Time cyclobenz aprine 10 mg tablet TAKE 1 TABLET BY MOUTH THREE TIMES DAILY NEEDED 08/01 completed Not Available Not Available Not Available nicotine 14 mg/24 hr daily transderm al patch PLACE 1 PATCH ONTO SKIN DAILY 14 DAYS, START WITH (1) 21 MG PATCH DAILY FOR 28 DAYS, THEN FOLLOW WITH (1) 14 MG PATCH FOR 14 DAYS, THEN (1) 7 MG PATCH FOR 14 DAYS. 11/30 /2023 completed Not Available Not Available Not Available clindamyc in HCl 300 mg capsule TAKE 1 CAPSULE BY MOUTH EVERY 8 HOURS FOR 10 DAYS active Not Available Not Available No t Available trazodone 50 mg tablet active Not Available Not Available Not Available ibuprofen 800 mg tablet TAKE 1 TABLET BY MOUTH THREE TIMES A DAY WITH FOOD NEEDED FOR PAIN active Not Available Not Available No t Available alprazola m 1 mg tablet TAKE 1 TABLET BY MOUTH THREE TIMES DAILY NEEDED 08/01 completed Not Available Not Available Not Available fluconazo le 150 mg tablet Take 1 tablet every 72 hours by oral route. active Not Available Not Available No t Available Vicodin 5 mg-500 mg tablet take 1 tablet by oral route every bedtime as needed for pain 02/16 completed Prescrib ed Elsewher e: No Locat ion: [facility] odify By: bienvenido epperson DateTime : 08/18/20 12 12:03:42 PM Not Available Not Available Not Available hydrocodo ne 5 mg-acetam inophen 500 mg capsule take 1 capsule by oral route every 6 hours as needed 05/19 completed Prescrib ed Elsewher e: Yes Loca tion: [facility] odify By: natalia donahue DateTime : 06/19/20 11 11:30:00 AM Not Available Not Available Not Available hydrocodo ne 5 mg-acetam inophen 325 mg tablet TAKE 1 TABLET BY MOUTH FOUR TIMES A DAY NEEDED FOR PAIN active Not Available Not Available No t Available methylphe nidate 20 mg tablet TAKE 1 TABLET BY MOUTH TWICE DAILY 08/01 completed Not Available Not Available Not Available Adderall 5 mg tablet take 1 tablet by oral route 2 times every day before breakfas t and at noon 02/16 completed Prescrib ed Elsewher e: Yes Loca tion: [facility] odify By: bienvenido العراقيuntrowan DateTime : 03/04/20 12 11:00:00 AM Not Available Not Available Not Available naltrexon e 50 mg tablet TAKE 1 TABLET BY MOUTH ONCE DAILY active Not Available Not Available No t Available phenazopy ridine 200 mg tablet 200 MG ORALLY THREE TIMES A DAY NEEDED FOR PAIN active Not Available Not Available No t Available Medrol (Juan) 4 mg tablets in a dose pack Pt. will go from 24mg to 0mg over 7 days 07/20 completed Prescrib ed Elsewher e: No Locat ion: Gabino borjas [facility] odify By: nita joiner DateTime : 06/08/20 09:33:45 AM Not Available Not Available Not Available prednison e 20 mg tablet TAKE ONE TABLET BY MOUTH DAILY FOR 5 DAYS active Not Available Not Available No t Available clonazepa m 0.5 mg tablet TAKE 1 TABLET BY MOUTH THREE TIMES A DAY NEEDED active Not Available Not Available No t Available hydroxyzi ne pamoate 50 mg capsule TAKE 2 CAPSULES BY MOUTH 4 TIMES DAILY NEEDED active Not Available Not Available No t Available methylphe nidate ER 54 mg tablet,ex tended release 24 hr TAKE 1 TABLET BY MOUTH EVERY DAY IN THE MORNING active Not Available Not Available No t Available metronida zole 500 mg tablet TAKE 4 TABLETS BY MOUTH FOR 1 TIME DOSE active Not Available Not Available No t Available ciproflox acin 500 mg tablet TAKE 1 TABLET BY ORAL ROUTE EVERY 12 HOURS FOR 5 DAYS THEN STOP active Not Available Not Available No t Available ketorolac 10 mg tablet TAKE 1 TABLET BY MOUTH EVERY 6 HOURS NEEDED FOR PAIN FOR 5 DAYS active Not Available Not Available No t Available Dulcolax (bisacody l) 10 mg rectal supposito ry insert 1 supposit ory by rectal route every day as needed for constipa tion 08/01 completed Prescrib ed Elsewher e: Yes [facility] By: johny epperson DateTime : 06/16/20 11 02:36:12 PM Not Available Not Available Not Available dextroamp hetamine- amphetami ne 30 mg tablet TAKE 1 TABLET BY MOUTH TWICE DAILY 08/01 completed Not Available Not Available Not Available alprazola m 0.5 mg tablet TAKE 1 TABLET BY MOUTH TWICE DAILY NEEDED active Not Available Not Available No t Available propranol ol 10 mg tablet TAKE 1 TABLET BY MOUTH TWICE DAILY active Not Available Not Available No t Available alprazola m 0.25 mg tablet TAKE 1 TABLET BY MOUTH ONCE DAILY NEEDED active Not Available Not Available No t Available Metrogel Vaginal 0.75 % (37.5 mg/5 gram) insert 1 applicat orful by vaginal route every day at bedtime 07/20 completed Prescrib ed Elsewher e: No Locat ion: Gabino borjas [facility] odify By: nita Wynn r DateTime : 06/15/20 19 09:00:32 AM Not Available Not Available Not Available famotidin e 20 mg tablet TAKE 1 TABLET BY MOUTH EVERY DAY active Not Available Not Available No t Available prednisol one acetate 1 % eye drops,christopher pension INSTILL 1 DROP INTO EACH EYE TWICE DAILY active Not Available Not Available No t Available modafinil 200 mg tablet active Not Available Not Available Not Available Depo-Prov era 150 mg/mL intramusc ular suspensio n inject 1 millilit er (150MG) by intramus cular route every 3 months 10/13 completed Prescrib ed Elsewher e: No Locat ion: Gabino borjas [facility] odify By: nita Wynn r DateTime : 04/01/20 13 01:00:00 PM Not Available Not Available Not Available nicotine (polacril ex) 4 mg gum active Not Available Not Available Not Available hydrocodo ne 7.5 mg-acetam inophen 325 mg tablet TAKE 1 TABLET BY MOUTH EVERY 6 HOURS NEEDED active Not Available Not Available No t Available cephalexi n 500 mg capsule active Not Available Not Available Not Available trazodone 150 mg tablet TAKE 1 TABLET BY MOUTH AT BEDTIME NEEDED active Not Available Not Available No t Available triamcino lone acetonide 0.1 % topical ointment APPLY TOPICALL Y TO THE AFFECTED AREA THREE TIMES A DAY FOR 7 DAYS active Not Available Not Available No t Available dextroamp hetamine- amphetami ne 20 mg tablet TAKE 1 TABLET BY MOUTH TWICE DAILY active Not Available Not Available No t Available Ortho-Nov um 35 (28) 1 mg-35 mcg tablet take 1 tablet by oral route every day for 28 days 08/28 completed Prescrib ed Elsewher e: No Locat ion: [facility] odify By: johny epperson DateTime : 08/01/20 11 02:15:00 PM Not Available Not Available Not Available orphenadr ine citrate ER 100 mg tablet,ex tended release TAKE 1 TABLET BY MOUTH TWICE A DAY IN THE MORNING AND EVENING NEEDED active Not Available Not Available No t Available nicotine 21 mg/24 hr daily transderm al patch PLACE 1 PATCH ONTO SKIN DAILY FOR 28 DAYS, FOLLOW WITH (1) 14 MG PATCH DAILY FOR 14 DAYS, THEN (1) 7 MG PATCH FOR 14 DAYS active Not Available Not Available No t Available docusate sodium 100 mg capsule TAKE 1 CAPSULE BY MOUTH ONCE DAILY AT BEDTIME NEEDED active Not Available Not Available No t Available hydroxyzi ne HCl 25 mg tablet TAKE 1 TABLET BY MOUTH 3 TIMES EVERY DAY NEEDED FOR ANXIETY active Not Available Not Available No t Available Klonopin 1 mg tablet take 1 tablet by oral route 4 times every day 02/16 completed Prescrib ed Elsewher e: Yes Loca tion: [facility] odify By: bienvenido epperson DateTime : 12/18/19 13 04:45:00 PM Not Available Not Available Not Available methylphe nidate ER 36 mg tablet,ex tended release 24 hr TAKE 1 TABLET BY MOUTH ONCE DAILY IN THE MORNING active Not Available Not Available No t Available nicotine 7 mg/24 hr daily transderm al patch PLACE 1 PATCH ONTO SKIN DAILY FOR 14 DAYS. START WITH (1) 21 MG PATCH DAILY FOR 28 DAYS, FOLLOW WITH (1) 14 MG PATCH DAILY FOR 14 DAYS, THEN USE (1) 7 MG PATCH DAILY FOR 14 DAYS 08/01 completed Not Available Not Available Not Available hydroxyzi ne pamoate 25 mg capsule active Not Available Not Available Not Available Vitamin 27 mg iron-0.8 mg tablet TAKE ONE CAPSULE BY MOUTH DAILY 06/11 completed Prescrib ed Elsewher e: No Locat ion: [facility] odify By: nita Wynn r DateTime : 04/27/20 19 09:03:02 AM Not Available Not Available Not Available azithromy ciro 500 mg tablet take 2 tablet (1000MG) by oral route once 03/04 completed Prescrib ed Elsewher e: No Locat ion: [facility] odify By: jlbrittany Varela unter DateTime : 09/24/19 12 10:09:31 AM Not Available Not Available Not Available escitalop virgie 10 mg tablet TAKE 1 TABLET BY MOUTH ONCE DAILY active Not Available Not Available No t Available Flexeril 5 mg tablet take 1 tablet (5MG) by oral route 3 times every day 03/04 completed Prescrib ed Elsewher e: Yes Loca tion: Gabino borjas [facility] odify By: rylan moyer Enco unter DateTime : 06/19/20 11 11:30:00 AM Not Available Not Available Not Available bupropion HCl XL 150 mg 24 hr tablet, extended release TAKE 1 TABLET BY MOUTH EVERY DAY active Not Available Not Available No t Available methylphe nidate CD 20 mg biphasic 30-70 capsule,e xtended release TAKE 1 CAPSULE BY MOUTH ONCE DAILY 08/01 completed Not Available Not Available Not Available topiramat e 50 mg tablet TAKE 1 TABLET BY MOUTH TWICE A DAY active Not Available Not Available No t Available nitrofura ntoin monohydra te/macroc rystals 100 mg capsule 100 MG ORALLY EVERY 12 HOURS FOR 7 DAYS MUST ADMINIST ER WITH A MEAL/CAROL D active Not Available Not Available No t Available Vitamin D3 10 mcg (400 unit) capsule 03/04 completed Prescrib ed Elsewher e: Yes Loca tion: Gabino borjas [facility] odify By: jlbrittany moyer Enco unter DateTime : 06/16/20 11 02:36:12 PM Not Available Not Available Not Available varenicli ne tartrate 1 mg tablet TAKE 1 TABLET BY MOUTH ONCE DAILY active Not Available Not Available No t Available varenicli ne tartrate 0.5 mg tablet active Not Available Not Available Not Available Vyvanse 30 mg capsule active Not Available Not Available Not Available Vyvanse 50 mg capsule TAKE 1 CAPSULE BY MOUTH ONCE DAILY active Not Available Not Available No t Available Vyvanse 60 mg capsule active Not Available Not Available Not Available Triveen-D uo DHA 29 mg-1 mg-400 mg oral pack take 1 tablet by oral route every day 06/11 completed Prescrib ed Elsewher e: No Locat ion: Gabino brojas [facility] odify By: [email or web address] Tianna r DateTime : 10/16/19 19 11:48:09 AM Not Available Not Available Not Available Vitafol-O ne 29 mg iron-1 mg-200 mg capsule 03/04 completed Prescrib ed Elsewher e: Yes Loca tion: Gabino [facility] odify By: [email or web address] lli Wojciechira untrowan DateTime : 06/16/20 11 02:36:12 PM Not Available Not Available Not Available Daily-Vit e (with folic acid) 400 mcg tablet active Not Available Not Available Not Available Vitals Date Recorded Body height Body mass index (BMI) Body weight Systolic blood pressure Diastolic blood pressure Provider Name and Address Organization Details Last Updated DateTime 08/01/2023 154.94 cm 27.4 kg/m2 50000.89 g 132 mm[Hg] 79 mm[Hg] Beba Chua [facility] 14:26:11 Social History Question Answer Notes LastModified by Organizat ion Details LastModified Time Tobacco Smoking Status Never Smoker Marianne Frost demi [facility] 08/01/2023 14:03:42 What Is Your Level Of Alcohol Consumption? Occasional Information not available 07/12/2021 Are You Blind Or Do You Have Difficulty Seeing? No Information not available 07/12/2021 What Is Your Level Of Caffeine Consumption? Occasional Information not available 07/12/2021 Are You Deaf Or Do You Have Serious Difficulty Hearing? No Information not available 07/12/2021 What Type Of Diet Are You Following? REGULAR Information not available 07/12/2021 Do You Use Your Seat Belt Or Car Seat Routinely? Yes Information not available 07/12/2021 Do You Have Smoke And Carbon Monoxide Detectors In Your Home? Yes Information not available 07/12/2021 Do You Feel Stressed (tense, Restless, Nervous, Or Anxious, Or Unable To Sleep At Night)? [id number] Information not available 07/12/2021 Do You Use Any Illicit Or Recreational Drugs? No Information not available 07/12/2021 Do You Use Sunscreen Routinely? Yes Information not available 07/12/2021 Sex: Unknown Functional Status Question Answer Note LastModified by Organization D etails LastModified Time Are you able to walk? YESWOREST Information not available 07/12/2021 What is your exercise level? Moderate Information not available 07/12/2021 Mental Status None recorded. Family History Relationship Description Onset Age of this Age Resolved Age Notes LastModified by Organization Details LastModified Time Sister Malignant tumor of cervix [email or web address] Not available 07/04 11:18:01 Sister Cyst of ovary [email or web address] Not available 2022 14:03:41 Mother Malignant tumor of cervix Not available 07/04 11:18:01 Mother Cyst of ovary [email or web address] Not available 2022 14:03:41 Maternal Aunt Malignant tumor of cervix [email or web address] Not available 07/04 11:18:01 Maternal Aunt Cyst of ovary [email or web address] Not available 2022 14:03:41 Maternal Grandmother Cyst of ovary [email or web address] Not available 2022 14:03:41 Paternal Grandfather Diabetes mellitus Not available 07/04 11:19:02 Father Disease of liver [email or web address] Not available 2022 14:03:41 Medical History Condition Response Allergies (Food, seasonal, environmental ) N Other Y Drug/Latex Allergies/Reactions N Blood Transfusion N Breast Cancer N Dermatologic Disorders N Lung Disease N Defects or Inherited Disease N Breast Problem N Gestational Diabetes N Hematologic disorders N Anesthesia Complications N History of STI Y Deep Vein Thrombosis N Polycystic ovary syndrome N Anxiety Disorder Y Autoimmune disease N Arthritis N Polyps N Infertility N Acid Reflux (GERD) N History of abnormal pap Y Cancer N Varicosities N Stroke N Neurologic/Epilepsy Y Endometriosis N High Cholesterol N Fibromyalgia N Headaches N Kidney Disease N Heart Problems N Thyroid Problems N Kidney or Bladder Problems N GI Problems N Eating Disorder N Anemia N Art (IVF or FET) N Psychiatric Illness Y Ovarian Cancer N Diabetes N Pulmonary (TB, Asthma) N Hepatitis/Liver Disease N No Past Medical History N Eczema N Urinary Tract Infection N Abuse/Domestic Violence N Asthma N Trauma/Violence N Depression/ depression Y Heart Disease N Pre-Eclampsia N Hypertension Y Osteoporosis N Thrombophilias N Gynecological History Statement/Question Response Abnormal Pap Y Date of Last Mammogram STIs/STDs Y Date of Last Pap Smear 05/10/2021 Current Control Method Tubal Ligat ion 05/10/2021 Obstetrics History GPAL:G 4 P 3 0 1 3 Type Value Full Term 3 Induced 1 Living 3 Total 4 Past Encounters Encounter ID Performer Location Encounter Start Date Encounter Closed Date Diagnosis/Indication Diagnosis SNOMED-CT Code Diagnosis ICD10 Code Diagnosis Note [id number] Joshua Grimm MD [facility] [address] [address] 08/01/2023 14:00:21 08/01/2023 15:25:36 Gynecologic examination 19023748 Z01.419 Annual gynecologi radha exam performed. Patient will come back in a year unless there are new symptoms. Suggest Calcium with Vitamin D if not eating in diet. Patient advised to get annual flu shot. Recommend yearly physicals and preform monthly breast exams. Genetic testing is available for patients with family history of cancer. Engage in safe sexual practices, use condoms. Encouraged to have daily exercise. Avoid tobacco and illicit drugs, moderation of alcohol. If BMI greater than 25 dietary consult advised. If you have any questions please call or email. mammogram- na colon cancer screening - na DEXA scan- na Pap smear- laboratory evaluation - ordered [id number] Mago Smallwood [facility] [address] [address] 05/15/2024 16:26:53 05/15/2024 16:43:54 Venereal disease screening 836852096 Z11.3 Vaginitis 67041337 N76.0 Health Concerns Section Related Observation LastModified by Organization Detai ls LastModified Time None Recorded Concern Status LastModified by Organization Details LastModified Time None Recorded Advance Directives Directive None Recorded Payers Encounter Date Sequence Insurance Name Policy Number Policy Ayala Covered Member ID Ayala Member ID Guarantor Name 08/01/2023 1 [facility] (MEDICAID HMO) [id number] Noreen Maier [id number] Noreen Maier 05/15/2024 1 [facility] (MEDICAID HMO) [id number] Noreen Maier [id number] Noreen Maier Notes Date Note Type Note Provider Name and Address Organization Details Recorded Time 08/01/2023 text/html Annual GYNReport ed bypatient.History: no gynecologic complaints Menstrual cycle:Normal menses Urinary symptoms:No hematuria; No incontinence Vulva:No genital lesion Vagina:Normal vaginal discharge Breast:No breast pain; No breast lump Current Contraception:Tuba l ligation Sexual complaints:No sexual complaints Menopausal Symptoms:No menopausal symptoms; Normal vaginal lubrication Psychological symptoms:No depression; No anxiety Preventive measures:Encourage self breast examination; Encourage regular exercise Joshua Grimm MD [address], [place], [address], [facility] 08/01/2023 15:00:47 OBGyn Episode Ob Episode Information Episode Created Date Number of Fetuses Patient Bloodtype Patient rh Status Prepregnancy Weight lbs Domestic Partner Domestic Partner Phone Father Name Vise Hand Status 07/04/20 21 1 CLOSED Fetus Data First Name Last Name Admitted to NICU Weight (g) Sex Living Outcome Pediatric Complications Fetus ID Race Codes Race Delivery Type 4337.24 6704 M Full Term [id number] Vaginal Delivery Zach Calculation Initial Zach Date Initial Exam Date Initial Exam Provider Initial Ultrasound Date Last Menstrual Period Date Ultra Sound Weeks Gestation 0 Eighteen To Twenty Week Zach Update Ultra Sound Date Fundal Height At Umbil Quickening Date Ultra Sound Latest Weeks Gestation Final Zach Confirmed By Final Zach Confirmed Date Final Zach Date Ultra Sound Latest Days Gestation 0 0 Menstrual History Last Menstrual Date Menses Monthly On Bcp Conception Prior Menses Frequency Hcg Plus Date Menarche Onset Age Delivery Information Delivery Date Delivery Type Labor Anesthesia Weeks Gestation Incision Type Labor Labor Length Hrs Delivered By Post Complications Tubal Sterilization Discharge Date Comments 9 39 placenta previa AJ Discharge Information Feeding Method Contraceptive Method Maternal HG B and HCT Levels Ob Episode Information Episode Created Date Number of Fetuses Patient Bloodtype Patient rh Status Prepregnancy Weight lbs Domestic Partner Domestic Partner Phone Father Name Vise Hand Status 07/04/20 21 1 CLOSED Fetus Data First Name Last Name Admitted to NICU Weight (g) Sex Living Outcome Pediatric Complications Fetus ID Race Codes Race Delivery Type 3656.85 8704 F Full Term [id number] Vaginal Delivery Zach Calculation Initial Zach Date Initial Exam Date Initial Exam Provider Initial Ultrasound Date Last Menstrual Period Date Ultra Sound Weeks Gestation 0 Eighteen To Twenty Week Zach Update Ultra Sound Date Fundal Height At Umbil Quickening Date Ultra Sound Latest Weeks Gestation Final Zach Confirmed By Final Zach Confirmed Date Final Zach Date Ultra Sound Latest Days Gestation 0 0 Menstrual History Last Menstrual Date Menses Monthly On Bcp Conception Prior Menses Frequency Hcg Plus Date Menarche Onset Age Delivery Information Delivery Date Delivery Type Labor Anesthesia Weeks Gestation Incision Type Labor Labor Length Hrs Delivered By Post Complications Tubal Sterilization Discharge Date Comments 3 38 shoulder dystocia mild relieve with Bear , +GBS Kinlee Discharge Information Feeding Method Contraceptive Method Maternal HG B and HCT Levels Ob Episode Information Episode Created Date Number of Fetuses Patient Bloodtype Patient rh Status Prepregnancy Weight lbs Domestic Partner Domestic Partner Phone Father Name Vise Hand Status 07/04/20 21 1 CLOSED Fetus Data First Name Last Name Admitted to NICU Weight (g) Sex Living Outcome Pediatric Complications Fetus ID Race Codes Race Delivery Type , Induced [id number] Zach Calculation Initial Zach Date Initial Exam Date Initial Exam Provider Initial Ultrasound Date Last Menstrual Period Date Ultra Sound Weeks Gestation 0 Eighteen To Twenty Week Zach Update Ultra Sound Date Fundal Height At Umbil Quickening Date Ultra Sound Latest Weeks Gestation Final Zach Confirmed By Final Zach Confirmed Date Final Zach Date Ultra Sound Latest Days Gestation 0 0 Menstrual History Last Menstrual Date Menses Monthly On Bcp Conception Prior Menses Frequency Hcg Plus Date Menarche Onset Age Delivery Information Delivery Date Delivery Type Labor Anesthesia Weeks Gestation Incision Type Labor Labor Length Hrs Delivered By Post Complications Tubal Sterilization Discharge Date Comments 2 Discharge Information Feeding Method Contraceptive Method Maternal HG B and HCT Levels Ob Episode Information Episode Created Date Number of Fetuses Patient Bloodtype Patient rh Status Prepregnancy Weight lbs Domestic Partner Domestic Partner Phone Father Name Vise Hand Status 07/04/20 21 1 CLOSED Fetus Data First Name Last Name Admitted to NICU Weight (g) Sex Living Outcome Pediatric Complications Fetus ID Race Codes Race Delivery Type 2891.64 9 M Full Term [id number] Vaginal Delivery Zach Calculation Initial Zach Date Initial Exam Date Initial Exam Provider Initial Ultrasound Date Last Menstrual Period Date Ultra Sound Weeks Gestation 0 Eighteen To Twenty Week Zach Update Ultra Sound Date Fundal Height At Umbil Quickening Date Ultra Sound Latest Weeks Gestation Final Zach Confirmed By Final Zach Confirmed Date Final Zach Date Ultra Sound Latest Days Gestation 0 0 Menstrual History Last Menstrual Date Menses Monthly On Bcp Conception Prior Menses Frequency Hcg Plus Date Menarche Onset Age Delivery Information Delivery Date Delivery Type Labor Anesthesia Weeks Gestation Incision Type Labor Labor Length Hrs Delivered By Post Complications Tubal Sterilization Discharge Date Comments 0 37 Tay Discharge Information Feeding Method Contraceptive Method Maternal HG B and HCT Levels
--- OUTSIDE RECORDS SUMMARY | 2024-11-08 17:24 | XMS_ITS | Clinical Summary ---
Author Organization [facility] Address [address] [place] [address] Phone Care Team Providers Care Block Captain Name Role Phone Unavailable Primary Care Provider Unavailabl e Medications ALPRAZolam 2 MG Tablet 2 Active amphetamine-de xtroamphetamin e (ADDERALL) 30 MG Tablet Take 30 mg by mouth 2 times daily. 2 Active permethrin (ACTICIN) 5 % Cream permethrin 5 % topical cream Active traMADol (ULTRAM) 50 MG Tablet tramadol 50 mg tablet Active triamcinolone (KENALOG) 0.025 % Cream triamcinolone acetonide 0.025 % topical cream Active Social History Tobacco Use Types Packs/Day Years Used Date Smoking Tobacco: Never Assessed Comments Unknown Sex and Gender Information Value Date Recorded Sex Assigned at Not on file Legal Sex Female 7:18 PM CDT Gender Identity Not on file Sexual Orientation Not on file Plan of Treatment Health Maintenance Due Date Last Done Comments Hepatitis C Virus (HCV) Screening 1987 TdaP Immunization 1987 Hepatitis B Immunization (1 of 3 - 19+ 3-dose series) 2006 Pap Smear 2008 Cervical Cancer Screening (CCS) 2017 HPV/Cotest 2017 Influenza Immunization (#1) 05/03/202409/03, 05/16/2019, 06/05/2018, Additional history exists SARS-COV-2 Immunization (2023- season) 2024 09/28/2021, 09/24/2020, 09/03/2020 Respiratory Syncytial Virus (RSV) Immunization (Adult) (1 - -dose 75+ series) 2062 Meningococcal Immunization (ACWY) Aged Out No longer eligible based on patient's age to complete this topic Pneumococcal Immunization Combined Aged Out No longer eligible based on patient's age to complete this topic Rotavirus Immunization Aged Out No lo nger eligible based on patient's age to complete this topic Insurance [place]ICAID [place]
--- OUTSIDE RECORDS SUMMARY | 2024-11-08 17:24 | XMS_ITS | Patient Health Record ---
Author Organization [facility] Address [address] [place] [address] Care Team Providers Care Toeing Stockings Name Role Phone DonaJuan M Primary Care Provider Ruby Calderón Unavailable [phone] Julia Ugalde Unavailable [phone] Allergies Allergen (clinical drug ingredient) Drug/Non Drug Allergy documented on EMR Reaction Allergy Type Onset Date Status Latex Latex anaphylaxis Allergy Active Penicillin rash Drug Allergy Active Reason For Referral Reason Therapy Diagnosis 1 ADHD (attention defi cit hyperactivity disorder) (F90.9) Diagnosis 2 Methamphetamine abus e, 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) Referral Organization [facility] Referring Provider First Name Ruby Referring Provider Last Name Stephane Referring Provider Speciality Psychiatry Referred Provider Specialty Behavioral [facility] General Notes Ruby Calderón 08:53:57 AM > New client to this provider that has a hx of being diagnosed with auditory processing disorder. She is very interested in therapy. She seems to get overwhelmed easily by stimuli. She uses sleeping as a coping mechanism. She has also struggled with ADHD and was just started on Strattera, and she has a hx of struggling with methamphetamine use. Please refer, thanks! Clinical Notes Nataliia Bustos 024 04:17:19 PM >Assigning to Niki Townsend for therapy Referral Priority Routine Medications Medication SIG (Take, Route, Frequency, Duration) Notes Start Date End Date Status Strattera 40 MG 1 capsule in the morning Orally Once a day for 30 days client in CRU, thanks! 11/21/2023 Active hydrOXYzine HCl 25 MG 2 tablet as needed Orally every 4 hours CRU Active Melatonin 5 MG 1 tablet in the evening Orally Once a day CRU Not-Taking Multivitamin - 1 tablet Orally Once a day CRU Active Social History Tobacco Use: Social History Observation Description Date Details (start date - stop date) Unknown Tobacco Control (Standard) Question Answer Notes Tobacco use: Uses tobacco in other forms Problems Problem Type SNOMED Code ICD Code Onset Dates Problem Status W/U Status Risk Notes Problem Tobacco user (719133943) Nicotine dependence, unspecified, uncomplicated (F17.200) Active confirmed Problem Attention deficit hyperactivity disorder (815608712) ADHD (attention deficit hyperactivity disorder) (F90.9) Active confirmed Problem Methamphetamine abuse (294319328) Methamphetamine abuse, 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) Active confirmed Vital Signs Heart Rate 86 /min 11/19/2023 Respiratory Rate 16 /min 11/19/2023 Oximetry 98 % 11/19/2023 Blood pressure diastolic 72 mm Hg 11/19/2023 Height 60 in 11/21/2023 Blood pressure systolic 120 mm Hg 11/19/2023 Weight 142.2 lbs 11/19/2023 BMI 27.77 kg/m2 11/19/2023 Encounters Encounter Location Date Provider Diagnosis [facility] [address] [address] 11/19/2023 Julia Ugalde Adult general medica l exam Z00.[address] [place] [address] 11/21/2023 Ruby Calderón ADHD (attention deficit hyperactivity disorder) F90.9 and Nicotine dependence, unspecified, uncomplicated F17.[address] [place] [address] 11/25/2023 Ruby Calderón Assessments Encounter Date Diagnosis (ICD Code) Assessment Notes Treatment Notes Treatment Clinical Notes Section Notes 11/21/2023 ADHD (attention deficit hyperactivity disorder) (ICD-10 - F90.9) Starting, discussed r/b/se. Email sent to Nataliia Emanuel regarding therapy options for client with auditory processing disorder. Hx of doing well with Ritalin x approx 30 years per client. This is not recommended at this time due to recent hx of methamphetamine use. Reports dx of auditory processing disorder 11/19/2023 Adult general medical exam (ICD-10 - Z00.00) 11/21/2023 Nicotine dependence, unspecified, uncomplicated (ICD-10 - F17.200) Reports dx of auditory processing disorder 11/19/2023 Other Continue treatment as recommended by [facility] staff. Encouraged patient to obtain routine medical care with patient's own primary care provider or establish as a patient at [facility] if no current primary care provider. 11/21/2023 Other Reasons, potential benefits, potential risks, interactions and side effects of all medications were discussed. The Patient/Guardian asked appropriate questions, appeared to understand the answers, and decided to accept the treatment and continue being followed. Alternatives and expected course without treatment were reviewed. The Patient/Guardian is aware of the need to contact the office or return for an earlier appointment if any problems or concerns arise. May also contact the 24-hour crisis hotline (R), refer to the closest emergency room or call 911 if new symptoms arise of existing symptoms worsen. The Patient/Guardian is aware that this would apply to symptoms like: suicidal ideation, homicidal ideation, high risk behaviors, manic symptoms, psychotic symptoms, physical symptoms, or any other symptoms that may be dangerous to self or others. Greater than 50% of time spent on coordination and counseling where psychopharmacology as well as psychotherapeutic interventions were discussed along with review of treatments in the past. Education provided concerning need for adequate hydration. Patient/Guardian verbalized understanding of education, treatment plan and follow up. This session was completed telephonically with client/parental/guar donna consent: Unable to determine movement status, assess appearance, affect, AIMS, or vital signs. Reports dx of auditory processing disorder Plan Of Treatment No Information Insurance Providers Payer Name Payer Address Payer Phone Subscriber Number Group Number Insured Name Patient Relationship to Insured Coverage Start Date Coverage End Date [employer] [address] [place] [address] [id number] Noreen Maier Self - patient is the insured 7 [employer] [address] [place] [address] [id number] Noreen Maier Self - patient is the insured 4 Medical (General) History Surgical History Surgery Date(Month/Year) tubal 2019
--- OUTSIDE RECORDS SUMMARY | 2024-11-08 17:24 | XMS_ITS ---
Author Organization [facility] Address [address] [place] [address] Care Team Providers Care Sanding Machine Operator Name Role Phone Juan M Carcamo Primary Care Provider Ruby Calderón Unavailable [phone] Allergies Allergen (clinical drug ingredient) Drug/Non Drug Allergy documented on EMR Reaction Allergy Type Onset Date Status Latex Latex anaphylaxis Allergy Active Penicillin rash Drug Allergy Active REASON FOR VISIT ON CRU New Eval Medications Medication SIG (Take, Route, Frequency, Duration) [...] tablet Orally Once a day CRU Active Problems Problem Type SNOMED Code ICD Code Onset Dates Problem Status W/U Status Risk Notes Problem Tobacco user (816301724) Nicotine dependence, unspecified, uncomplicated (F17.200) Active confirmed Problem Attention deficit hyperactivity disorder (293528337) ADHD (attention deficit hyperactivity disorder) (F90.9) Active confirmed Vital Signs Height 60 in 11/21/2023 Encounters Encounter Location Date Provider Diagnosis [address] [address] 11/21/2023 Ruby Calderón ADHD (attention deficit hyperactivity disorder) F90.9 and Nicotine dependence, unspecified, uncomplicated F17.200 Assessments Encounter Date Diagnosis (ICD Code) Assessment [...] use. Reports dx of auditory processing disorder 11/21/2023 Nicotine dependence, unspecified, uncomplicated (ICD-10 - F17.200) Reports dx of auditory processing disorder 11/21/2023 Other Reasons, potential benefits, potential risks, [...] of auditory processing disorder Plan Of Treatment Medication Medication Name Sig Start Date Stop Date Notes Strattera 40 MG 1 capsule in the mor jackson Orally Once a day for 30 days 11/21/2023 client in CRU, thank s! Treatment Notes Assessment Notes ADHD (attention deficit hype ractivity disorder) Starting, discussed r/b/se. Email sent to Nataliia Emanuel regarding therapy options for client with auditory processing disorder. Other Reasons, potential benefits, potential risks, interactions [...] May also contact the 24-hour crisis hotline ([facility]), refer to the closest emergency room or [...] up. This session was completed telephonically with client/parental/guardian consent: Unable to determine movement status, assess appearance, affect, AIMS, or vital signs. Next Appt Details Follow Up: 2 Weeks, Reason: Psych F/U Progress Notes * Noreen MAIERDOB: [birth year] (38 yo F)Acc No.[id number]:11/21/2023 Patient: Crystal FONSECAly Provider: Bruce Calderón NP :1985 A ge:38 Y S ex:Female Date:11/21/2023 Address:[address] [place], [place] [id number] Pcp:Juan M Carcamo Subjective: * Chief Complaints: * O N CRU New Eval * HPI: D epression Screening: PHQ-9 L ittle interest or pleasure in doing things N ot at all, F eeling down, depressed, or hopeless N ot at all, T rouble falling or staying asleep, or sleeping too much M ore than half the days, F eeling tired or having little energy S everal days, P oor appetite or overeating N early every day, F eeling bad about yourself or that you are a failure, or have let yourself or your family down N ot at all, T rouble concentrating on things, such as reading the newspaper or watching television M ore than half the days, M oving or speaking so slowly that other people could have noticed; or the opposite, being so fidgety or restless that you have been moving around a lot more than usual N ot at all, T houghts that you would be better off or of hurting yourself in some way N ot at all, T otal Score 8 , I nterpretation M ild Depression. S creening: [place] Suicide Severity Rating Scale (LF) D o you want to initiate with S creener form, 1 . Wish to be : Have you wished you were or wished you could go to sleep and not wake up? N o, 2 . Suicidal Thoughts: Have you actually had any thoughts of killing yourself? N o, 6 . Suicide Behaviour: Have you ever done anything,started to do anything, or prepared to end your life? N o, I nterpretation: L ow Risk. F eric vaccine: Flu vaccine offered F eric Vaccine Declined .. C SSRS Interpretation and Follow Up Plan: CSSRS Interpretation and Follow Up PlanCSSRS Interpretation and Follow Up Plan. CSSRS Interpretation and Follow Up Plan C SSRS Screen documented using SF Y es, M oderate or High risk requires selection of a follow up plan C SSRS No/Low: intervention not needed at this time. G AD-7 Screenin. Feeling nervous, anxious, or on edge : , Not at all-0.?2. Not being able to stop or control worrying : , More than half the days-2. 3 . Worrying too much about different things : , More than half the days-2. 4 . Trouble sleeping/relaxing : , More than half the days-2. 5 . Being so restless that it is hard to sit still : , Not at all-0. 6 . Becoming easily annoyed or irritable : , Several days-1. 7 . Feeling afraid, as if something awful might happen : , More than half the days-2. G AD-7 Score T otal score 9 :. M ood Disorder Questionnaire 02-21-22: Please answer each question to the best of your ability. Questions P lease answer each question to the best of your ability. H as there ever been a time period when you were not your usual self and..., Y ou felt so good or hyper that other people thought you were not your normal self or you were so hyper that you got into trouble? Y es ., Y ou were so irritable that you shouted at people or started fights or arguments? Y es ., Y ou got much less sleep than usual and found that you didn't really miss it? N o ., Y ou felt much more self-confident than usual? Y es ., Y ou were more talkative or spoke much faster than usual? Y es ., T houghts raced through your head or you couldn't slow your mind down? Y es ., Y ou were so easily distracted by things around you that you had trouble concentrating or staying on track? Y es ., Y ou had more energy than usual? N o ., Y ou were more active or did many more things than usual? N o ., You were more social or outgoing than usual, for example, you telephoned friends in the middle of the night? N o ., Y ou were more interested in sex than usual? N o ., Y ou did things that were usual for you or that other people might have thought were excessive, foolish, or risky??Yes ., S pending money got you or your family in trouble? N o ., I f you checked YES to more than one of the above, have several of these ever happened during the same period of time? Y es ., H ow much of a problem did any of these cause you - like being unable to work; having family, money or legal troubles; getting into arguments or fights? S erious problem .. A dult ADHD Self-Report Scale: Symptom Checklist H ave trouble wrapping up final details of project? O ften, D ifficulty getting things in order? O ften, P roblems remembering appointments? S ometimes, D o you avoid or delay getting tasks started? O ften, F idget or squirm? O ften, F eel over active or compelled or driven to do things? S ometimes, H ow often make careless mistakes? O ften, D ifficulty keeping attention when bored? Very Often, D ifficulty concentrating on what people say? O ften, M isplace things or difficulty finding things at home or work? S ometimes, H ow often distracted by noise? Very Often, H ow often leave seat when expected to remain seated? S ometimes, H ow often feel restless or fidgety? O ften, H ave difficulty unwinding or relaxing? S ometimes, H ow often find self talking too much in social situation? O ften, F ind self finishing sentences of others? O ften, H ow often do you have difficulty waiting your turn in situations when turn taking is required? V nirav Often, H ow often do you interupt others when they are busy? S ometimes. P sychiatric Assessment - Current Symptoms: Expectations of this visit- Medication Management Client is a 38 yo F on zoom today reporting from the CRU with plans to be in the women's residential soon. 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 States she feels she struggles with auditory processing. Hx of ADHD and and dyslexia. Onset: Reports she took Ritalin until around 32 yo and did well on it. States she stopped taking Ritalin I just went to different drugs honestly. Frequency: Sometimes, auditory processing bothers her daily, reports depression/anxiety is intermittent Location/Triggers- Busy places, anything that looks off What helps? I don't really have many, just remembering that I am the same as others. I was on medication for so long that that was my only coping mechanism. G oals- Stand on my own two feet without a man, or codependent. Strengths- Caring for people S leep- It is good, probably sleeping too much. Appetite- Too much Depression- 5/10 more sadness than depression. Hopeless/Helpless- Sometimes, 3/10 Interest level- good Concentration- Not good Energy Level- Depends, I feel sluggish often, but anytime I see something scary, I go to sleep because I can't process it. Anxiety- 5/10 or really high at a 10/10 depending on what is going on Anger/irritability- If I talk with my significant other, yes, so I hang up the phone. Suicidal Ideation- Denies Reports I tried one time for attention but not because I wanted to . States this was last 2022 Homicidal Ideation- Denies Racing thoughts- I don't let my mind get to that, I just go lay down. Distractible- Yes Indiscretion/Inhibition- Fair Risk taking- Yes and no, I don't really see things as a big risk until the end. Grandiosity- Yes, I was raised that way, I don't think I am that way, but that is how I was raised and learned. Missed sleep and still felt good- Denies Talkativeness- I used to. Reports she interrupts a lot. Impulsivity- Yes Hallucinations- Denies Paranoia- It is hard to not think that with my processing. Delusions- Denies, no P ast Psychiatric History- ADHD, auditory processing disorder, dyslexia? Psychiatric Medications- PAST: Ritalin, Adderall, Wellbutrin CURRENT: Denies Medication Adherence- Reports she would be good at taking, that was one thing I was stable with was taking medication 3 times a day. Medication efficacy- Ritalin worked well Adderall was having triggering troubles with substance use Side effects- Wellbutrin made me really dizzy. Medical Concerns- Denies Other Medications- Denies Allergies- Latex, PCN Head Injury/ Loss of Consciousness- Denies Seizures: Denies Therapist- Denies 1:1 therapy currently States she did this as a child Reports going to groups Primary Care Physician- None currently- plans to start seeing PCP Diane charles- 2 sons 13 yo and 4 yo and 1 daughter is 11 yo Siblings- 2 sisters Family mental health history- Mom: unknown mh dx that client is aware of Dad: unknown mh dx that client is aware of Paternal aunt: ID but she may have been beat like that. Siblings: older sister has anxiety Social History- Reports she is close with mom, but she is a liar a lot. C lose with older sister, not with younger sister. States she does feel she has a good support system, but it is really confusing. location- [place] Grew up in [place] Current home: independent living, group housing, homeless? Independent with boyfriend, that is where I left, but he is quite controlling, so I just don't know. Who lives at home- Self, boyfriend, was living with kids, temporarily signed over rights for her kids. Describe childhood- Traumatic Reports she did have friends in childhood, still close with one from [employer]. Abuse/Trauma- Reports that she was put in my father's casket Friend in dance class that client was in Sister's roommate was decapitated, and I made the mistake of seeing the boy, she was put back together but not really. 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 Spiritual Affiliation- Believes in God, hx of baptized as Buddhism Legal History- Once, reports boyfriend reported her for theft but I just took it because we both bought it and I brought it with me and back. Substance Use- Substance Last Use Alcohol Denies Marijuana Hx of THC use, last 11/15/23. cocaine Denies Heroin Denies Meth 11/15/23, intermittent use LSD/PCP I tried mushrooms one time, and no thank you. Caffeine Sometimes, drinks diet coke OTC/Rx drugs Denies. * ROS: P sych ROS: Constitutional D enies. E yes D enies. E ars/Nose/Mouth/Throat D enies. R espiratory D enies. A llergic/Immunologic D enies.?Cardiovascular D enies. G I D enies. G U D enies. M usculoskeletal D enies. N eurological R eports, A uditory processing disorder. I ntegumentary D enies. E ndocrine D enies. H ematological/Lymphatic D enies. P sych R eports trouble with concentration. . * Medical History: * Surgical History: t ubal 2018 * Hospitalization/Major Diagno stic Procedure: D enies Past Hospitalization * Family History: Cj irwin(s): , passed at 32 from cirrhosis of the liver. M other: alive. 2 sister(s) - healthy. 2 son(s) , 1 daughter(s) - healthy. . 1 sister is an alcoholic. * Social History: P rimary Social History: L iving Arrangement L iving Arrangement: I ndependent Living lives with boyfriend,?Is this a supportive environment? Y es. A lcohol Use A lcohol Use Frequency: N ever. I llicit Substance Usage I llicit Substance Usage: Y es, S ubstance Used: M ethamphetamine last use 11/14, I nterested in quitting: Y es. E mployment Status E mployment Status: U nemployed. * Medications: T akinghydrOXYzine HCl 25 MG Tablet 2 tablet as needed Orally every 4 hours , Notes to Pharmacist: CRUMultivitamin - Tablet 1 tablet Orally Once a day , Notes to Pharmacist: CRUTaking hydrOXYzine HCl 25 MG Tablet 2 tablet as needed Orally every 4 hours , Notes to Pharmacist: CRUTaking Multivitamin - Tablet 1 tablet Orally Once a day , Notes to Pharmacist: CRUNot-TakingMelatonin 5 MG Tablet 1 tablet in the evening Orally Once a day , Notes to Pharmacist: CRUMedication List reviewed and reconciled with the patientNot-Taking Melatonin 5 MG Tablet 1 tablet in the evening Orally Once a day , Notes to Pharmacist: CRUMedication List reviewed and reconciled with the patient * Allergies: L atex: anaphylaxisPenicillin: rashno[Allergies Verified] Objective: * Vitals: I nitials: rt, Ht: 60, LMP: 11/2023, Pain scale:0. * Examination: M ental Status Exam: SENSORIUM AND COGNITION Alert, Oriented to Person, Oriented to Place, Oriented to Time, Oriented to Situation. ATTENTION AND CONCENTRATION I mpaired attention/concentration. APPEARANCE Appropriate. ATTITUDE AND BEHAVIOR Cooperative, Receptive. MEMORY Immediate, Recent, Remote. EYE CONTACT Good. AFFECT C ongruent with reported mood, Calm. MOOD E uthymic. SPEECH QUANTITY Appropriate. SPEECH QUALITY Appropriate volume. THOUGHT PROCESS Coherent and goal directed. THOUGHT CONTENT A ppropriate. MOTOR ACTIVITY G oal directed, limited eval due to zoom.? SUICIDAL IDEATION Denies suicidal ideation. HOMICIDAL IDEATION Denies homicidal ideation. HALLUCINATIONS Denies hallucinations. INSIGHT F air. JUDGMENT F air. FUND OF KNOWLEDGE F air. ABILITY TO PARTICIPATE IN TREATMENT M oderate. WILLINGNESS TO PARTICIPATE IN TREATMENT M oderate. E xam limited due to zoom encounter. Assessment: * Assessment: 1. A DHD (attention deficit hyperactivity disorder) - F90.9 2 . N icotine dependence, unspecified, uncomplicated - F17.200 Reports dx of auditory proce ssing disorder. Plan: * Treatment: 2. O thers Notes: Reasons, potential benefits, potential risks, interactions and [...] up. This session was completed telephonically with client/parental/guardian consent: Unable to determine movement status, assess appearance, affect, AIMS, or vital signs. * Recommended Wellness and Pre vention Guidelines: * S tatus A lert L ast Done N ext Due A ction Taken N ONCOMPLIANT C ervical cancer screening - 0 11/21/2023 - N ONCOMPLIANT H IV screening - 0 11/21/2023 - * Procedure Codes: C HS07 Flu Vaccine [id number] BEHAV CHNG SMOKING 3-10 MIN * Preventive Medicine: Counseling: S MOKING: P atient counselled on the dangers of tobacco use and urged to quit. . . * Follow Up: 2 Weeks (Reason: Psych F/U) * * Sign off status: Completed true * Provider: Bruce Calderón NP Date: 11/21/2023 Generated for [place] kraft/Heri/Suresh on: 11/08/2024 05:23 PM CDT History and Physical Notes * HPI (History of Present Illness) Category Sub-Category Detail Notes Category Not es Depression Screening PHQ-9 Little inte rest or pleasure in doing things: Not at all Feeling down, depressed, or hopeless: No t at all Trouble falling or staying a sleep, or sleeping too much: More than half the days Feeling tired or having little energy: S everal days Poor appetite or overeating: Nearly ever y day Feeling bad about yourself o r that you are a failure, or have let yourself or your family down: Not at all Trouble concentrating on thi ngs, such as reading the newspaper or watching television: More than half the days Moving or speaking so slowly that other people could have noticed; or the opposite, being so fidgety or restless that you have been moving around a lot more than usual: Not at all Thoughts that you would be b johann off or of hurting yourself in some way: Not at all Total Score: 8 Interpretation: Mild Depression DUANE-7 Screening 1. Feeling nervous, anxious, or on edg e :, Not at all-0 2. Not being able to stop or control wor rying :, More than half the days-2 3. Worrying too much about different thi ngs :, More than half the days-2 4. Trouble sleeping/relaxing :, More mirlande n half the days-2 5. Being so restless that it is hard to sit still :, Not at all-0 6. Becoming easily annoyed or irritable :, Several days-1 7. Feeling afraid, as if something awful might happen :, More than half the days-2 DUANE-7 Score Total score: 9 : Adult ADHD Self-Report Scale Symptom Checklist H ave trouble wrapping up final details of project?: Often Difficulty getting things in order?: Oft en Problems remembering appointments?: Some times Do you avoid or delay getting tasks star iliana?: Often Fidget or squirm?: Often Feel over active or compelled or driven to do things?: Sometimes How often make careless mistakes?: Often Difficulty keeping attention when bored? : Very Often Difficulty concentrating on what people say?: Often Misplace things or difficulty finding th ings at home or work?: Sometimes How often distracted by noise?: Very Oft en How often leave seat when expected to re main seated?: Sometimes How often feel restless or fidgety?: Oft en Have difficulty unwinding or relaxing?: Sometimes How often find self talking too much in social situation?: Often Find self finishing sentences of others? : Often How often do you have diffic ulty waiting your turn in situations when turn taking is required?: Very Often How often do you interupt others when th ey are busy?: Sometimes Psychiatric Assessment - Current Symptoms Expectations of this visit- Medication Management Client is a 38 yo F on zoom today reporting from the CRU with plans to be in the women's residential soon. 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 States she feels she struggles with auditory processing. Hx of ADHD and and dyslexia. Onset: Reports she took Ritalin until around 32 yo and did well on it. States she stopped taking Ritalin I just went to different drugs honestly. Frequency: Sometimes, auditory processing bothers her daily, reports depression/anxiety is intermittent Location/Triggers- Busy places, anything that looks off What helps? I don't really have many, just remembering that I am the same as others. I was on medication for so long that that was my only coping mechanism. Goals- Stand on my own two feet without a man, or codependent. Strengths- Caring for people Sleep- It is good, probably sleeping too much. Appetite- Too much Depression- 5/10 more sadness than depression. Hopeless/Helpless- Sometimes, 3/10 Interest level- good Concentration- Not good Energy Level- Depends, I feel sluggish often, but anytime I see something scary, I go to sleep because I can't process it. Anxiety- 5/10 or really high at a 10/10 depending on what is going on Anger/irritability- If I talk with my significant other, yes, so I hang up the phone. Suicidal Ideation- Denies Reports I tried one time for attention but not because I wanted to . States this was last 2022 Homicidal Ideation- Denies Racing thoughts- I don't let my mind get to that, I just go lay down. Distractible- Yes Indiscretion/Inhibition- Fair Risk taking- Yes and no, I don't really see things as a big risk until the end. Grandiosity- Yes, I was raised that way, I don't think I am that way, but that is how I was raised and learned. Missed sleep and still felt good- Denies Talkativeness- I used to. Reports she interrupts a lot. Impulsivity- Yes Hallucinations- Denies Paranoia- It is hard to not think that with my processing. Delusions- Denies, no Past Psychiatric History- ADHD, auditory processing disorder, dyslexia Psychiatric Medications- PAST: Ritalin, Adderall, Wellbutrin CURRENT: Denies Medication Adherence- Reports she would be good at taking, that was one thing I was stable with was taking medication 3 times a day. Medication efficacy- Ritalin worked well Adderall was having triggering troubles with substance use Side effects- Wellbutrin made me really dizzy. Medical Concerns- Denies Other Medications- Denies Allergies- Latex, PCN Head Injury/ Loss of Consciousness- Denies Seizures: Denies Therapist- Denies 1:1 therapy currently States she did this as a child Reports going to groups Primary Care Physician- None currently- plans to start seeing PCP Children- 2 sons 13 yo and 4 yo and 1 daughter is 11 yo Siblings- 2 sisters Family mental health history- Mom: unknown mh dx that client is aware of Dad: unknown mh dx that client is aware of Paternal aunt: ID but she may have been beat like that. Siblings: older sister has anxiety Social History- Reports she is close with mom, but she is a liar a lot. Close with older sister, not with younger sister. States she does feel she has a good support system, but it is really confusing. location- [place] Grew up in [place] Current home: independent living, group housing, homeless? Independent with boyfriend, that is where I left, but he is quite controlling, so I just don't know. Who lives at home- Self, boyfriend, was living with kids, temporarily signed over rights for her kids. Describe childhood- Traumatic Reports she did have friends in childhood, still close with one from [employer]. Abuse/Trauma- Reports that she was put in my father's casket Friend in dance class that client was in Sister's roommate was decapitated, and I made the mistake of seeing the boy, she was put back together but not really. 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 Substance Use- Substance Last Use Alcohol Denies Marijuana Hx of THC use, last 11/15/23. cocaine Denies Heroin Denies Meth 11/15/23, intermittent use LSD/PCP I tried mushrooms one time, and no thank you. Caffeine Sometimes, drinks diet coke OTC/Rx drugs Denies Screening [place] Suicide Severity Rating Scale (LF) Do you want to initiate with: Screener form 1. Wish to be : Have you wished you were or wished you could go to sleep and not wake up?: No 2. Suicidal Thoughts: Have you actually had any thoughts of killing yourself?: No 6. Suicide Behavior Question: Have you ever done anything,started to do anything, or prepared to end your life?: No Interpretation:: Low Risk Mood Disorder Questionnaire 02-21-22 Questions Please answer each question to the best of your ability.: Has there ever been a time period when you were not your usual self and... You felt so good or hyper th at other people thought you were not your normal self or you were so hyper that you got into trouble?: Yes . You were so irritable that y ou shouted at people or started fights or arguments?: Yes . You got much less sleep than usual and found that you didn't really miss it?: No . You felt much more self-confident than u sual?: Yes . You were more talkative or spoke much fa ster than usual?: Yes . Thoughts raced through your head or you couldn't slow your mind down?: Yes . You were so easily distracte d by things around you that you had trouble concentrating or staying on track?: Yes . You had more energy than usual?: No . You were more active or did many more th ings than usual?: No . You were more social or outg oing than usual, for example, you telephoned friends in the middle of the night?: No . You were more interested in sex than usu al?: No . You did things that were usu al for you or that other people might have thought were excessive, foolish, or risky?: Yes . Spending money got you or your family in trouble?: No . If you checked YES to more t kc one of the above, have several of these ever happened during the same period of time?: Yes . How much of a problem did an y of these cause you - like being unable to work; having family, money or legal troubles; getting into arguments or fights?: Serious problem . Flu vaccine Flu vaccine offered Flu Vaccine Declined: . Do Not Use CSSRS Interpretation and Follow Up Plan CSSRS Interpretation and Follow Up Plan CSSRS Screen documented using SF: Yes Moderate or High risk requir es selection of a follow up plan: CSSRS No/Low: intervention not needed at this time Examination Category Sub-Category Detail Notes Category Not es Mental Status Exam SENSORIUM AND COGNITION Alert, Oriented to Person, Oriented to Place, Oriented to Time, Oriented to Situation Exam limited due to zoom encounter ATTENTION AND CONCENTRATION Impaired att ention/concentration APPEARANCE Appropriate ATTITUDE AND BEHAVIOR Cooperative, Document Coordinator tive MEMORY Immediate, Recent, R emote EYE CONTACT Good AFFECT Congruent with repor iliana mood, Calm MOOD Euthymic SPEECH QUANTITY Appropriate SPEECH QUALITY Appropriate volume THOUGHT PROCESS Coherent and goal di rected THOUGHT CONTENT Appropriate MOTOR ACTIVITY Goal directed, limit ed eval due to zoom SUICIDAL IDEATION Denies suicidal idea tion HOMICIDAL IDEATION Denies homicidal yasmeen ation HALLUCINATIONS Denies hallucination s INSIGHT Fair JUDGMENT Fair FUND OF KNOWLEDGE Fair ABILITY TO PARTICIPATE IN TREATMENT Mode rate WILLINGNESS TO PARTICIPATE IN TREATMENT Moderate
--- OUTSIDE RECORDS SUMMARY | 2024-11-08 17:24 | XMS_ITS | Continuity of Care Document ---
Author Organization [facility] Address [address] [place] [address] [place] [address] Phone Care Team Providers Care Former Hand Name Role Phone Kvng Curiel MD Unavailable Unavailable Allergies, Adverse Reactions, Alerts Substance Reaction Status Criticality Penicillins Active No Information Medications Medication Instructions Dosage Effective Dates (start - stop) Status Comments Adderall 20 mg tablet take 1.5 Tablet (30MG) by oral route every day 30 MG - Active Klonopin 0.5 mg tablet take 1 tablet (0.5MG) by oral route 2 times every day as needed 0.5 MG - Active PRN for anxiety. avoid driving or operate machines [place] 5 mg-325 mg tablet take 1 tablet by oral route every 6 hours as needed for pain - Active PRN for pain, avoid driving or operate machines Lamictal 100 mg tablet take 1 tablet (100MG) by oral route every day 100 MG - Active Procedures Procedure Date OFFICE/OUTPATIENT VISIT, EST PREV VISIT, EST, AGE 18-39 OFFICE/OUTPATIENT VISIT, EST OFFICE/OUTPATIENT VISIT, EST OFFICE/OUTPATIENT VISIT, EST OFFICE/OUTPATIENT VISIT, EST PREV VISIT, EST, AGE 18-39 OFFICE/OUTPATIENT VISIT, EST OFFICE/OUTPATIENT VISIT, EST OFFICE/OUTPATIENT VISIT, EST OFFICE/OUTPATIENT VISIT, EST OFFICE/OUTPATIENT VISIT, EST OFFICE/OUTPATIENT VISIT, EST OFFICE/OUTPATIENT VISIT, EST OFFICE/OUTPATIENT VISIT, EST Advance Directives Directive Yes / No Effective Date File Name No Information Encounters Encounter Description Practice Location Reason(s) For Visit Diagnoses Date Provider Providers Copied on Encounter OFFICE/OUTPA TIENT VISIT, EST [facility], [address], [place], [place], [address], [place] tel:[phone] [facility] ADD (chief complaint) toothache (chief complaint) anxiety (chief complaint) Attention deficit disorder of childhood without mention of hyperactivityGenera lized anxiety disorderAtypical face pain 2 4 Moisés Calderon. [address], [place], [place], [address] , [place]. tel:[phone] Referring Provider: Chelsea Vel[address], [place], [place], [address]. tel:[phone] PREV VISIT, EST, AGE 18-39 [facility], [address], [place], [place], [address], [place] tel:[phone] [facility] Physical (chief complaint) Routine Medical ExamRoutine Medical Exam 0 4 Moisés Calderon. [address], [place], [place], [address] , [place]. tel:[phone] Referring Provider: Chelsea Velásquez [address], [place], [place], [address]. tel:[phone] OFFICE/OUTPA TIENT VISIT, EST [facility], [address], [place], [place], [address], [place] tel:[phone] [facility] toothache (chief complaint) anxiety (chief complaint) back pain (chief complaint) Atypical face painLumbagoGenerali zed anxiety disorderAttention deficit disorder of childhood without mention of hyperactivity 4 Moisés Calderon. [address], [place], [place], [address] , [place]. tel:[phone] Referring Provider: Chelsea Velásquez [address], [place], [place], [address]. tel:[phone] OFFICE/OUTPA TIENT VISIT, EST [facility], [address], [place], [place], [address], [place] tel:[phone] [facility] anxiety (chief complaint) ADD (chief complaint) back pain (chief complaint) LumbagoAttention deficit disorder of childhood without mention of hyperactivityGenera lized anxiety disorderBipolar disorder, unspecified 4 Moisés Calderon. [address], [place], [place], [address] , [place]. [phone] Referring Provider: Chelsea Velásquez [address], [place], [place], [address]. tel:[phone] OFFICE/OUTPA TIENT VISIT, [facility], [address], [place], [place], [address], [place] tel:[phone] [facility] anxiety (chief complaint) back pain (chief complaint) LumbagoAttention deficit disorder of childhood without mention of hyperactivityGenera lized anxiety disorderPain in joint involving shoulder region 3 Moisés Calderon. [address], [place], [place], [address] , [place]. [phone] Referring Provider: Chelsea Velásquez [address], [place], [place], [address]. tel:[phone] OFFICE/OUTPA TIENT VISIT, [facility], [address], [place], [place], [address], [place] tel:[phone] [facility] back pain (chief complaint) anxiety (chief complaint) ADD (chief complaint) LumbagoAttention deficit disorder of childhood without mention of hyperactivityGenera lized anxiety disorder 3 Moisés Calderon. [address], [place], [place], [address] , [place]. [phone] Referring Provider: Chelsea Velásquez [address], [place], [place], [address]. tel:[phone] PREV VISIT, EST, AGE 18-39 [facility], [address], [place], [place], [address], [place] tel:[phone] [facility] anxiety (chief complaint) back pain (chief complaint) ADD (chief complaint) Routine Medical ExamAttention deficit disorder of childhood without mention of hyperactivityGenera lized anxiety disorderLumbSelect [facility] 3 Moisés Calderon. [address], [place], [place], [address] , [place]. tel:[phone] Referring Provider: Chelsea Velásquez [address], [place], [place], [address]. tel:[phone] OFFICE/OUTPA TIENT VISIT, [facility], [address], [place], [place], [address], [place] tel:[phone] [facility] anxiety (chief complaint) ADD (chief complaint) back pain (chief complaint) LumbagoAttention deficit disorder of childhood without mention of hyperactivityGenera lized anxiety disorder 3 Moisés Calderon. [address], [place], [place], [address] , [place]. tel:[phone] Referring Provider: Chelsea Velás[address], [place], [place], [address]. tel:[phone] OFFICE/OUTPA TIENT VISIT, [facility], [address], [place], [place], [address], [place] tel:[phone] [facility] back pain (chief complaint) anxiety (chief complaint) ADD (chief complaint) LumbagoAttention deficit disorder of childhood without mention of hyperactivityGenera lized anxiety disorder 3 Moisés Calderon. [address], [place], [place], [address] , [place]. tel:[phone] Referring Provider: Chelsea Velásquez [address], [place], [place], [address]. tel:[phone] OFFICE/OUTPA TIENT VISIT, [facility], [address], [place], [address], [place] tel:[phone] [facility] back pain (chief complaint) anxiety (chief complaint) ADD (chief complaint) LumbagoAttention deficit disorder of childhood without mention of hyperactivityGenera lized anxiety disorder Kush- 3 Moisés Calderon. [address], [place], [place], [address] , [place]. tel:[phone] Referring Provider: Kvng Curiel, [address], [place], [place], [address]. tel:[phone] OFFICE/OUTPA TIENT VISIT, [facility], [address], [place], [address], [place] tel:[phone] [facility] back pain (chief complaint) anxiety (chief complaint) ADD (chief complaint) Generalized anxiety disorderAttention deficit disorder of childhood without mention of hyperactivityLumbag o 3 Moisés Calderon. [address], [place], [place], [address] , [place]. [phone] Referring Provider: Kvng Curiel [address], [place], [place], [address]. tel:[phone] OFFICE/OUTPA TIENT VISIT, [facility], [address], [place], [address], [place] tel:[phone] [facility] back pain (chief complaint) anxiety (chief complaint) ADD (chief complaint) LumbagoAttention deficit disorder of childhood without mention of hyperactivityGenera lized anxiety disorder Apr-3 3 Moisés Calderon. [address], [place], [place], [address] , [place]. tel:[phone] Referring Provider: Kvng Curiel [address], [place], [place], [address]. tel:[phone] OFFICE/OUTPA TIENT VISIT, [facility], [address], [place], [place], [address], [place] tel:[phone] [facility] back pain (chief complaint) anxiety (chief complaint) ADD (chief complaint) LumbagoAttention deficit disorder of childhood without mention of hyperactivityGenera lized anxiety disorder Apr-0 2-201 3 Moisés Calderon. [address], [facility] [address], [place], [place], [address] , [place]. tel:[phone] Referring Provider: Kvng Curiel, [address], [place], [place], [address]. tel:[phone] OFFICE/OUTPA TIENT VISIT, EST [facility], [address], [place], [address], [place] tel:[phone] [facility] ADD (chief complaint) Attention deficit disorder of childhood without mention of hyperactivity 3 Moisés Calderon. [address], [facility] [address], [place], [place], [address] , [place]. tel:[phone] Referring Provider: Kvng Curiel, [address] [facility] [address], [place], [place], [address]. tel:[phone] Family History Family Member Type Diagnosis Age At Onset Sister Problem (finding) Alive and well Father Problem (finding) Alive and well Mother Problem (finding) Alive and well Payers Payer name Insurance type Covered green party ID Authoriza tion(s) No Information Social History Type Description Quantity Date Captured Comments Alcohol Use Details No Caffeine Use Details Unknown Tobacco Use Status No Information Smoking Status Current every day smoker 2013 Sex Female Vital Signs Date / Time: Height Weight BMI Pulse Rate Blood Pressure Temperature Respiratory Rate Body Surface Area Head Circumference BMI percentile Pulse Ox Inhaled Ox 12:49 PM 61.00 in 124.00 lbs 23.4 3 kg/m eter (2) 73 /min 118/72 mm[Hg] 96.3 F 16 /min Chief Complaint And Reason For Visit From encounter dated '01/21/2014 11:15'. ADD (chief complaint) toothache (chief complaint) anxiety (chief complaint) Plan Of Treatment Date Type Action Status Goal Tobacco cessation counseling completed Goal Tobacco cessation counseling completed Goal Tobacco cessation counseling completed Goal Tobacco cessation counseling completed Goal Tobacco cessation counseling completed Goal Tobacco cessation counseling completed Goal Tobacco cessation counseling completed Goal Tobacco cessation counseling completed Goal Tobacco cessation counseling completed Goal Tobacco cessation counseling completed Goal Tobacco cessation counseling completed Goal Tobacco cessation counseling completed Goal Tobacco cessation counseling completed Goal Tobacco cessation counseling completed History Of Present Illness Encounter Date Complaint History Of Prese nt Illness No Information Instructions Date Instruction Additional Infor matcollin stretching execise Related to Meme mbago Assessments Type Assessment Date No Information Mental Status Date Cognitive Assessment Orientation - Christiana ed to time, place, person, situation.
--- OUTSIDE RECORDS SUMMARY | 2024-11-08 17:24 | XMS_ITS ---
Author Organization [facility] Address [address] [place] [address] Care Team Providers Care Patient Transport Officer Name Role Phone RupaJuan M ramirez Primary Care Provider [phone] Julia Ugalde [phone] Allergies Allergen (clinical drug ingredient) Drug/Non Drug Allergy documented on EMR Reaction Allergy Type Onset Date Status Latex Latex anaphylaxis Allergy Active Penicillin rash Drug Allergy Active REASON FOR VISIT ON CRU- physical Medications Medication SIG (Take, Route, Fr equency, Duration) Notes Start Date End Date Status hydrOXYzine HCl 25 MG 2 tablet as needed Orally every 4 hours CRU Active Melatonin 5 MG 1 tablet in the even ing Orally Once a day CRU Active Multivitamin - 1 tablet Orally Once a day CRU Active Social History Tobacco Use: Social History Observation Description Date Details (start date - stop date) Unknown Tobacco Control (Standard) Question Answer Notes Tobacco use: Uses tobacco in other forms Vital Signs Weight 142.2 lbs 11/19/2023 Height 60 in 11/19/2023 BMI 27.77 kg/m2 11/19/2023 Blood pressure systolic 120 mm Hg 11/19/19 24 Blood pressure diastolic 72 mm Hg 024 Heart Rate 86 /min 11/19/2023 Oximetry 98 % 11/19/2023 Respiratory Rate 16 /min 11/19/2023 Encounters Encounter Location Date Provider Diagnosis [address] [place] [place] [address] 11/19/2023 Julia Ugalde Adult general medical exam Z00.00 Assessments Encounter Date Diagnosis (ICD Code) Assessment Notes Treatment Notes Treatment Clinical Notes Section Notes 11/19/2023 Adult general medical exam (ICD-10 - Z00.00) 11/19/2023 Other Continue treatment as recommended by [facility] staff. Encouraged patient to obtain routine medical care with patient's own primary care provider or establish as a patient at [facility] if no current primary care provider. Plan Of Treatment Treatment Notes Assessment Notes Other Continue treatment as recommended by [facility] staff. Encouraged patient to obtain routine medical care with patient's own primary care provider or establish as a patient at [facility] if no current primary care provider. Next Appt Details Follow Up: prn, Reason: Progress Notes * Isatu MAIERcheryleDOB: 8 (38 yo F)Acc No.[id number]:11/19/2023 Patient: Noreen FONSECA Provider: Rodolfo Ugalde APRN :1985 A ge:38 Y S ex:Female Date:11/19/2023 Address:[address] [place] [address] Pcp:Juan M Carcamo Subjective: * Chief Complaints: * O N CRU-MH physical * HPI: D epression Screening: PHQ-9 L ittle interest or pleasure in doing things S everal days, F eeling down, depressed, or hopeless N ot at all, T rouble falling or staying asleep, or sleeping too much N ot at all, F eeling tired or having little energy N ot at all, P oor appetite or overeating N ot at all, F eeling bad about yourself or that you are a failure, or have let yourself or your family down S everal days, T rouble concentrating on things, such as reading the newspaper or watching television S everal days, M oving or speaking so slowly that other people could have noticed; or the opposite, being so fidgety or restless that you have been moving around a lot more than usual N ot at all, T houghts that you would be better off or of hurting yourself in some way N ot at all, T otal Score 3 , I nterpretation M inimal Depression. I ntervention D epression Screening Findings?Negative. S creening: [place] Suicide Severity Rating Scale (LF) D o [...] N o, I nterpretation: L ow Risk. P reventative Health and Wellness follow-up: Action Plans for Clinical Quality Measures: H IV Screening:?Discussed need for HIV screening. Patient declined.. . C SSRS Interpretation and Follow Up Plan: CSSRS Interpretation and Follow Up Plan. CSSRS Interpretation and Follow Up Plan C SSRS Screen documented using SF Y es, M oderate or High risk requires selection of a follow up plan C SSRS No/Low: intervention not needed at this time. S roseannagiancarlo: Noreen presents for physical as patient is admitted to Residential Unit at [facility]. Arrived on: 11/18/2023 Previous treatment: [facility] in [place], [place] -[address]23 Psych provider: Denies- encouraged to establish with a [facility] provider PCP: Denies- encouraged to establish with a [facility] provider Denies any medical acute concerns Denies SI/HI. * ROS: P sych ROS: Constitutional D enies. E yes D enies. E ars/Nose/Mouth/Throat R eports, r ecent tooth ache. Pt. states she was prescribed an antibiotic, but did not bring it with her.. R espiratory D enies. C ardiovascular D enies. G I D enies. G U D enies. M usculoskeletal D enies. N eurological D enies.?Integumentary D enies. H ematological/Lymphatic D enies. B asic ROS: Denies S eizures. D enies S uicidal Thoughts. ? * Medical History: * Surgical History: t ubal 2018 * Hospitalization/Major Diagno stic Procedure: D enies Past Hospitalization * Family History: F alida(s): , passed at 32 from cirrhosis of [...] mployment Status E mployment Status: U nemployed. T obacco Use: T obacco Control (Standard) T obacco use: U ses tobacco in other forms. * Medications: T akingMelatonin 5 MG Tablet 1 tablet in the evening Orally Once a day , Notes to Pharmacist: CRUhydrOXYzine HCl 25 MG Tablet 2 tablet as needed Orally every 4 hours , Notes to Pharmacist: CRUMultivitamin - Tablet 1 tablet Orally Once a day , Notes to Pharmacist: CRUMedication List reviewed and reconciled with the patientTaking Melatonin 5 MG Tablet 1 tablet in [...] rashno[Allergies Verified] Objective: * Vitals: I nitials: jn, Wt:142.2, Ht: 60, BMI:27.77, BP:120/72, HR:86, Oxygen sat %:98, RR:16, LMP: 11/2023, Pain scale:0. * Examination: A ctivity Permissions and Medication Self Administration: Activity Level & Medication Self-Administration Permissions?Activity Level Permitted: T he patient/client may fully take part in physical fitness programming including aerobic, muscular strength, and flexibility training without restriction.Medication Self-Administration Permissions: M edications may be self-administered by the patient/client under the supervision of approved staff or administered by nursing staff.. . G eneral Examination: GENERAL APPEARANCE: alert, in no acute distress. HEAD: normocephalic, atraumatic. EYES: BOTH EYES, sclera anicteric, pupils equal, round, reactive to light and accommodation , extraocular movement intact (EOMI). EARS BOTH EARS, normal. NOSE: nares patent. ORAL CAVITY: m ucosa moist, missing teeth, carious teeth.? THROAT: pharynx normal. NECK/THYROID: neck supple , no thyromegaly. SKIN: warm and dry, no rashes, no suspicious lesions.? HEART: regular rate and rhythm, S1, S2 normal, no S3, S4, no murmurs, rubs, gallops. LUNGS: respirations regular and easy, clear to auscultation bilaterally, no wheezes, rales, rhonchi, clear anteriorly and posteriorly, good air movement.? ABDOMEN: bowel sounds present, soft, nontender, nondistended, no masses palpable, no organomegaly . EXTREMITIES: no edema. PERIPHERAL PULSES: 2+ throughout. NEUROLOGIC: nonfocal, gait normal. PSYCH: appropriate affect. Assessment: * Assessment: 1. A dult general medical exam - Z00.00 (Primary) Plan: * Treatment: * Recommended Wellness and Pre vention Guidelines: * S tatus A lert L ast Done N ext Due A ction Taken N ONCOMPLIANT A lcohol use screening - 0 11/19/2023 - N ONCOMPLIANT B jeannie Mass Index - 0 11/19/2023 - N ONCOMPLIANT C ervical cancer screening - 0 11/19/2023 - N ONCOMPLIANT D epression screening - 0 11/19/2023 - N ONCOMPLIANT H IV screening - 0 11/19/2023 - N ONCOMPLIANT S moking status - 0 11/19/2023 - * Procedure Codes: 3 008F BODY MASS INDEX [id number] MEDICAL NUTRITION, INDIV, [id number] BEHAV CHNG SMOKING 3-10 MIN * Preventive Medicine: Counseling: C are goal follow-up plan: B [place] management provided Y es, A daxa Normal BMI Follow-up L ifestyle education regarding diet. S MOKING: P atient counselled on the dangers of tobacco use and urged to quit. . . * Follow Up: p rn * * Sign off status: Completed true * Provider: Rodolfo Ugalde, CAMRON Date: 0 11/19/2023 Generated for [place] kraft/Heri/eTransmitting on: 0 11/08/2024 05:23 PM CDT History and Physical Notes * HPI (History of Present Illness) Category Sub-Category Detail Notes Category Not es Depression Screening PHQ-9 Little inte rest or pleasure in doing things: Several days Feeling down, depressed, or hopeless: No t at all Trouble falling or staying asleep, or sl eeping too much: Not at all Feeling tired or having little energy: N ot at all Poor appetite or overeating: Not at all Feeling bad about yourself o r that you are a failure, or have let yourself or your family down: Several days Trouble concentrating on thi ngs, such as reading the newspaper or watching television: Several days Moving or speaking so slowly that other people could have noticed; or the opposite, being so fidgety or restless that you have been moving around a lot more than usual: Not at all Thoughts that you would be b johann off or of hurting yourself in some way: Not at all Total Score: 3 Interpretation: Minimal Depression Intervention Depression Screening Findings: N egative Summary Noreen presents for physical as patient is admitted to Residential Unit at [facility]. Arrived on: 11/18/2023 Previous treatment: [facility] in [place], [place] -[address]23 Psych provider: Denies- encouraged to establish with a HC provider PCP: Denies- encouraged to establish with a HC provider Denies any medical acute concerns Denies SI/HI Screening [place] Suicide Severity Rating Scale (LF) Do you [...] end your life?: No Interpretation:: Low Risk Do Not Use CSSRS Interpretation and Follow Up Plan CSSRS Interpretation and Follow Up Plan CSSRS Screen documented using SF: Yes Moderate or High risk requir es selection of a follow up plan: CSSRS No/Low: intervention not needed at this time Preventative Health and Wellness follow-up Action Plans for Clinical Quality Measures: HIV Screening:: Discussed need for HIV screening. Patient declined. . Examination Category Sub-Category Detail Notes Category Not es General Examination GENERAL APPEARANCE: alert, in no a cute distress HEAD: normocephalic, atrau matic EYES: BOTH EYES, sclera an icteric, pupils equal, round, reactive to light and accommodation , extraocular movement intact (EOMI) EARS BOTH EARS, normal NOSE: nares patent THROAT: pharynx normal NECK/THYROID: neck supple , no thy romegaly HEART: regular rate and rhy thm, S1, S2 normal, no S3, S4, no murmurs, rubs, gallops LUNGS: respirations regular and easy, clear to auscultation bilaterally, no wheezes, rales, rhonchi, clear anteriorly and posteriorly, good air movement ABDOMEN: bowel sounds present , soft, nontender, nondistended, no masses palpable, no organomegaly NEUROLOGIC: nonfocal, gait larisa l SKIN: warm and dry, no marilu hes, no suspicious lesions EXTREMITIES: no edema PERIPHERAL PULSES: 2+ throughout PSYCH: appropriate affect ORAL CAVITY: mucosa moist, missin g teeth, carious teeth Activity Permissions and Medication Self Administration Activity Level & Medication Self-Administration Permissions Activity Level Permitted:: The patient/client may fully take part in physical fitness programming including aerobic, muscular strength, and flexibility training without restriction. . Medication Self-Administrati on Permissions:: Medications may be self- administered by the patient/client under the supervision of approved staff or administered by nursing staff.
--- OUTSIDE RECORDS SUMMARY | 2024-11-08 17:24 | XMS_ITS ---
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) Referral Organization [facility] Referring Provider First Name Ruby Referring Provider Last Name Stephane Referring Provider Speciality Psychiatry Referred Provider Specialty [facility] General Notes Ruby Calderón 08:53:57 AM > [...] Niki Townsend for therapy Referral Priority Routine REASON FOR VISIT Referral Encounters Encounter Location Date Provider Diagnosis [address] [place] [address] 11/25/2023 Ruby Calderón Plan Of Treatment Referrals Referral Date Details 11/25/2023 11/25/2023, Therapy Progress Notes * Noreen MAIERDOB: 8 (38 yo F)Acc No.[id number]:11/25/2023 Patient: Marcos FAISALNoreen :1985 A ge:38 Y S ex:Female Address:[address] [place] [address], [address] Subjective: * Chief Complaints: * R eferral * Medical History: * Surgical History: * Hospitalization/Major Diagno stic Procedure: * Medications: Objective: * Vitals: * Physical Examination: Assessment: Plan: * Treatment: * Procedure Codes: * true * Date: Generated for [place] kraft/Heri/eTransmitting on: 0 11/08/2024 05:23 PM CDT Consultation Request Notes Referral Date Referring Provider Referred Provider Not es 11/25/2023 Ruby Caldernó , Aravind
--- NOTE | 2024-11-08 17:28 | ED_ITS ---
HPI - General Adult General Chief complaint: Extremity Injury, Lower Stated complaint: right ankle pain Time Seen by Provider: 11/08/24 17:22 History of Present Illness HPI narrative: Simon is a 39F with a PMH of anxiety that presented to the ED after she twisted her right ankle with a pop getting off a stack of tires. No other injuries reported. Related Data Allergies Allergy/AdvReac Type Severity Reaction Status Date / Time amoxicillin Allergy Mild RASH Verified 04/23/24 18:03 morphine Allergy Mild Hives Verified 04/23/24 18:03 Penicillins Allergy Mild RASH Verified 04/23/24 18:03 latex Allergy Unknown Verified 04/23/24 18:03 Review of Systems Review of Systems: All systems reviewed & are unremarkable except as noted in HPI and below PMFSH Past Medical History Medical History Anxiety Overweight (BMI 25.0-29.9) Seizure disorder remote history. 2 seizures 10 years ago. Surgical History Surgical History No history of previous surgery Family History Family History Other No acute medical problems Social History Social History Smoking status: Former smoker Gender identity (if verbalized by the patient): Female Exam Const: General: cooperative, healthy appearing, comfortable, no acute distress, well developed, alert, awake and Physically active Orientation/consciousness: oriented to person, oriented to place and oriented to time HENMT: Head: normal to inspection, normocephalic and atraumatic Ears: hearing grossly normal bilaterally and external ears normal Face/Nose/Sinus: Normal external nose present Eyes: General: appearance normal, both eyes and all related structures Periorbital: periorbital findings normal Sclera: sclerae normal Pupils: Equal, round and reactive pupils present Neck: Neck: normal visual inspection Chest: Chest palpation & inspection: normal inspection of the chest Resp: Effort & Inspection: normal respiratory effort, able to speak in complete sentences and no respiratory distress Cardio: Jugular venous distension: no JVD Skin: General skin exam: normal color and no rashes or lesions noted Neuro: General: oriented to person, oriented to place and oriented to time Cranial nerves: Yes Equal, round and reactive pupils present Extrem: General: normal to inspection Other: Right ankle was swollen, TTP over the navicular bone, base of 5th metatarsal and over the ATF Course Course Emergency Course: Given Toradol shot for pain and ordered radiographs EXAM: XR ankle RT min 3V DATE: 11/08/2024 17:35 HISTORY: fall/twisted Rt. ankle with lateral pain and swelling. . COMPARISON: None available. FINDINGS: Normal mineralization. No fracture or dislocation. No lytic or blastic lesion. Joint spaces are maintained. No erosion or periosteal change. Soft tissues within normal limits. IMPRESSION: No acute osseous finding in the right ankle. Placed ankle in a splint Vital Signs Vital signs: Vital Signs Temperature 97.4 F L 11/08/24 17:20 Pulse Rate 92 11/08/24 17:20 Respiratory Rate 18 11/08/24 17:20 Blood Pressure 143/93 H 11/08/24 17:20 Pulse Oximetry 98 11/08/24 17:20 Oxygen Delivery Room Air 11/08/24 17:20 Temperature 97.4 F L 11/08/24 17:20 Pulse Rate 92 11/08/24 17:20 Respiratory Rate 18 11/08/24 17:20 Blood Pressure 143/93 H 11/08/24 17:20 Pulse Oximetry 98 11/08/24 17:20 Oxygen Delivery Room Air 11/08/24 17:20 Medical Decision Making Vital Signs Vital Signs: Vital Signs Temperature 97.4 F L 11/08/24 17:20 Pulse Rate 92 11/08/24 17:20 Respiratory Rate 18 11/08/24 17:20 Blood Pressure 143/93 H 11/08/24 17:20 Pulse Oximetry 98 11/08/24 17:20 Oxygen Delivery Room Air 11/08/24 17:20 Temperature 97.4 F L 11/08/24 17:20 Pulse Rate 92 11/08/24 17:20 Respiratory Rate 18 11/08/24 17:20 Blood Pressure 143/93 H 11/08/24 17:20 Pulse Oximetry 98 11/08/24 17:20 Oxygen Delivery Room Air 11/08/24 17:20 Discharge Plan Discharge Clinical Impression: Ankle sprain Patient Disposition: Home, Self-Care Condition: Stable Instructions: Ankle Sprain (ED) Patient Language: [place] Prescriptions: New meloxicam 15 mg tablet 15 mg PO DAILY Qty: 10 0RF No Action prednisone 20 mg tablet 20 mg PO DAILY 5 Days Qty: 5 0RF triamcinolone acetonide 0.1 % ointment 1 applic topical TID 7 Days Qty: 30 0RF Rx Instructions: apply to affected area famotidine [Pepcid] 20 mg tablet 20 mg PO DAILY Qty: 7 0RF Follow-up/Referrals: [facility], [Other]
--- OUTSIDE RECORDS SUMMARY | 2024-11-08 17:28 | XMS_ITS | Continuity of Care Document ---
Author Organization [facility] Address [address] [address] [place] [address] Phone Care Team Providers Care Enameler Name Role Phone Kvng Curiel MD Unavailable Unavailable Allergies, Adverse Reactions, Alerts Substance Reaction Status Criticality Penicillins Active No Information Medications Medication Instructions Dosage Effective Dates (start - stop) Status Comments Danbury 5 mg-325 mg tablet take 1 tablet by oral route every 6 hours as needed for pain - Active PRN for pain, avoid driving or operate machines Klonopin 0.5 mg tablet take 1 tablet (0.5MG) by oral route 2 times every day as needed 0.5 MG - Active PRN for anxiety. avoid driving or operate machines Adderall 20 mg tablet take 1.5 Tablet (30MG) by oral route every day 30 MG - Active Lamictal 100 mg tablet take 1 tablet [...] Copied on Encounter OFFICE/OUTPA TIENT VISIT, EST [facility], [address], [place], [place], [address], [place] tel:[phone] [facility] ADD (chief complaint) toothache (chief complaint) anxiety (chief complaint) Attention deficit disorder of childhood without mention of hyperactivityGenera lized anxiety disorderAtypical face pain 2 4 Moisés Calderon. [address], [place], [place], [address] , [place]. tel:[phone] Referring Provider: Chelsea Vel[address], [place], [place], [address]. tel:[phone] PREV VISIT, EST, AGE 18-39 [facility], [address], [place], [place], [address], [place] tel:[phone] [facility] Physical (chief complaint) Routine Medical ExamRoutine Medical Exam 0 4 Moisés Calderon. [address], [place], [place], [address] , [place]. tel:[phone] Referring Provider: Chelsea Vel[address], [place], [place], [address]. tel:[phone] OFFICE/OUTPA TIENT VISIT, EST [facility], [address], [place], [place], [address], [place] tel:[phone] [facility] toothache (chief complaint) anxiety (chief complaint) back pain (chief complaint) Atypical face painLumbagoGenerali zed anxiety disorderAttention deficit disorder of childhood without mention of hyperactivity 4 Moisés Calderon. [address], [place], [place], [address] , [place]. tel:[phone] Referring Provider: Chelsea Vel[address]quez [address], [place], [place], [address]. tel:[phone] OFFICE/OUTPA TIENT VISIT, EST [facility], [address], [place], [place], [address], [place] tel:[phone] [facility] anxiety (chief complaint) ADD (chief complaint) back pain (chief complaint) LumbagoAttention deficit disorder of childhood without mention of hyperactivityGenera lized anxiety disorderBipolar disorder, unspecified 4 Moisés Calderon. [address], [place], [place], [address] , [place]. tel:[phone] Referring Provider: Chelsea Velásquez [address], [place], [place], [address]. tel:[phone] OFFICE/OUTPA TIENT VISIT, [facility], [address], [place], [place], [address], [place] tel:[phone] [facility] anxiety (chief complaint) back pain (chief complaint) LumbagoAttention deficit disorder of childhood without mention of hyperactivityGenera lized anxiety disorderPain in joint involving shoulder region 3 Moisés Calderon. [address], [place], [place], [address] , [place]. [phone] Referring Provider: Chelsea Velásquez [address], [place], [place], [address]. tel:[phone] OFFICE/OUTPA TIENT VISIT, [facility], [address], [place], [place], [address], [place] tel:[phone] [facility] back pain (chief complaint) anxiety (chief complaint) ADD (chief complaint) LumbagoAttention deficit disorder of childhood without mention of hyperactivityGenera lized anxiety disorder 3 Moisés Calderon. [address], [place], [place], [address] , [place]. [phone] Referring Provider: Chelsea Velásquez [address], [place], [place], [address]. tel:[phone] PREV VISIT, EST, AGE 18-39 [facility], [address], [place], [place], [address], [place] tel:[phone] [facility] anxiety (chief complaint) back pain (chief complaint) ADD (chief complaint) Routine Medical ExamAttention deficit disorder of childhood without mention of hyperactivityGenera lized anxiety disorderLumbSelect Specialty Hospital[facility] Medical Exam 3 Moisés Calderon. [address], [place], [place], [address] , [place]. tel:[phone] Referring Provider: Chelsea Velásquez [address], [place], [place], [address]. tel:[phone] OFFICE/OUTPA TIENT VISIT, [facility], [address], [place], [place], [address], [place] tel:[phone] [facility] anxiety (chief complaint) ADD (chief complaint) back pain (chief complaint) LumbagoAttention deficit disorder of childhood without mention of hyperactivityGenera lized anxiety disorder 3 Moisés Calderon. [address], [place], [place], [address] , [place]. tel:[phone] Referring Provider: Chelsea Velás[address], [place], [place], [address]. tel:[phone] OFFICE/OUTPA TIENT VISIT, [facility], [address], [place], [place], [address], [place] tel:[phone] [facility] back pain (chief complaint) anxiety (chief complaint) ADD (chief complaint) LumbagoAttention deficit disorder of childhood without mention of hyperactivityGenera lized anxiety disorder 3 Moisés Calderon. [address], [place], [place], [address] , [place]. tel:[phone] Referring Provider: Chelsea Velásquez [address], [place], [place], [address]. tel:[phone] OFFICE/OUTPA TIENT VISIT, [facility], [address], [place], [place], [address], [place] tel:[phone] [facility] back pain (chief complaint) anxiety (chief complaint) ADD (chief complaint) LumbagoAttention deficit disorder of childhood without mention of hyperactivityGenera lized anxiety disorder Kush- 3 Moisés Calderon. [address], [place], [place], [address] , [place]. tel:[phone] Referring Provider: Kvng Curiel, [address], [place], [place], [address]. tel:[phone] OFFICE/OUTPA TIENT VISIT, [facility], [address], [place], [place], [address], [place] tel:[phone] [facility] back pain (chief complaint) anxiety (chief complaint) ADD (chief complaint) Generalized anxiety disorderAttention deficit disorder of childhood without mention of hyperactivityLumbag o 3 Moisés Calderon. [address], [place], [place], [address] , [place]. [phone] Referring Provider: Kvng Curiel [address], [place], [place], [address]. tel:[phone] OFFICE/OUTPA TIENT VISIT, [facility], [address], [place], [place], [address], [place] tel:[phone] [facility] back pain (chief complaint) anxiety (chief complaint) ADD (chief complaint) LumbagoAttention deficit disorder of childhood without mention of hyperactivityGenera lized anxiety disorder Apr-3 3 Moisés Calderon. [address], [place], [place], [address] , [place]. tel:[phone] Referring Provider: Kvng Curiel [address], [place], [place], [address]. tel:[phone] OFFICE/OUTPA TIENT VISIT, [facility], [address], [place], [place], [address], [place] tel:[phone] [facility] back pain (chief complaint) anxiety (chief complaint) ADD (chief complaint) LumbagoAttention deficit disorder of childhood without mention of hyperactivityGenera lized anxiety disorder Apr-0 2-201 3 Moisés [address]on[address], [facility] A, [place], [place], [address] , [place]. tel:[phone] Referring Provider: Kvng Curiel, [address], [place], [place], [address]. tel:[phone] OFFICE/OUTPA TIENT VISIT, EST [facility], [address], [place], [place], [address], [place] tel:[phone] [facility] ADD (chief complaint) Attention deficit disorder of childhood without mention of hyperactivity 3 Moisés [address]on. [address], [facility] [address], [place], [place], [address] , [place]. tel:[phone] Referring Provider: Kvng Curiel, [address] [facility] [address], [place], [place], [address]. tel:[phone] Family History Family Member Type Diagnosis Age At Onset Sister Problem (finding) Alive and well Father Problem (finding) Alive and well Mother Problem (finding) Alive and well Payers Payer name Insurance type Covered democrat ID Authoriza tion(s) No Information Social History [...] Mental Status Date Cognitive Assessment Orientation - Byers ed to time, place, person, situation.
[2024-11-08] MEDS: KETOROLAC 30 MG/ML VIAL (*BKC) IM (17:32)
== END 2024-11-08 18:10 | disposition home or self-care (01) ==
PROVIDERS: Emergency Provider Family Medicine
DX: S93.401A Sprain of unspecified ligament of right ankle, initial encounter (principal); X50.0XXA Overexertion from strenuous movement or load, initial encounter
CPT/HCPCS: 29515; 73610; 96372; 99283; J1885; L4350

== ENCOUNTER 2025-03-07 21:38 | Emergency (ER) | payer OTHER, SELFPAY ==
--- OUTSIDE RECORDS SUMMARY | 2025-03-07 21:40 | XMS_ITS | Patient Health Record ---
Author Organization [facility] Address [address] [place] [address] Care Team Providers Care Cotton Ball Bagger Name Role Phone Juan M Carcamo Primary Care Provider Allergies Allergen (clinical drug ingredient) Drug/Non Drug Allergy documented on EMR Reaction Allergy Type Onset Date Status Latex Latex anaphylaxis Allergy Active Penicillin rash Drug Allergy Active Reason For Referral No Information Medications Medication SIG (Take, Route, Frequency, Duration) Notes Start Date End Date Status Strattera 40 MG 1 capsule in the morning Orally Once a day; Duration: 30 days client in [facility]U, thanks! 11/21/2023 [...] W/U Status Risk Notes Problem Tobacco user (870159381) Nicotine dependence, unspecified, uncomplicated (F17.200) Active confirmed Problem Attention deficit hyperactivity disorder (968889994) ADHD (attention deficit hyperactivity disorder) (F90.9) Active confirmed Problem Methamphetamine abuse (767406100) Methamphetamine abuse, 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) Active confirmed Plan Of Treatment No Information Insurance Providers Payer Name Payer Address Payer Phone Subscriber Number Group Number Insured Name Patient Relationship to Insured Coverage Start Date Coverage End Date [employer] [address] [place] [phone] [id number] Noreen Maier Self - patient is the insured 7 [employer] [address] [place] [address] [id number] Noreen Maier Self - patient is the insured 4 Medical (General) History Surgical History Surgery Date(Month/Year) tubal 2019
--- OUTSIDE RECORDS SUMMARY | 2025-03-07 21:40 | XMS_ITS | Clinical Summary ---
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 Gender Identity Not on file Sexual Orientation [...] 12:54 PM CDT Height 154.9 cm (5' 1) 03/21/2024 12:54 PM CDT Body Mass Index 28.34 03/21/2024 12:54 PM CDT Plan of Treatment Health Maintenance Due Date Last Done Comments Annual Physical 1990 Hepatitis C 2005 DTaP, Tdap and Td Vaccines ( 1 - Tdap) 2006 Hepatitis B Vaccines (1 of 3 - 19+ 3-dose series) 2006 COVID-19 Vaccine (4 - 2023-2 5 season) 2024 09/28/2021, 09/24/2020, 09/03/2020 Cervical Cancer Screening Pa p Smear (Age 30 to 64) Every 3 Years 08/01/2026 08/01/2023, 08/01/2023 Cervical Cancer Screening Pa p with HPV Testing (Age 30 to 64) Every 5 Years 08/01/2028 08/01/2023 Cervical Cancer Screening wi th HPV 08/01/2028 HPV Vaccines Aged Out No longer eligi ble based on patient's age to complete this topic Meningococcal B Vaccine Aged Out No l onger eligible based on patient's age to complete this topic Meningococcal Vaccine Aged Out No lauro kareem eligible based on patient's age to complete this topic Pneumococcal Vaccine: Pediatrics (0 to 5 Years) and At-Risk Patients (6 to 49 Years) Aged Out No longer eligible b ased on patient's age to complete this topic RSV Immunizations Under 20 Months Aged Out No longer eligible b ased on patient's age to complete this topic Insurance [place] Care Teams Monogram Technician Relationship Specialty Start Date End Date Manisha Sweet MD [address] [place] [phone] PCP - General FAMILY PRACTICE 09/02/22
--- OUTSIDE RECORDS SUMMARY | 2025-03-07 21:40 | XMS_ITS | Data Portability ---
Author Organization [facility], [place] Address [address] [place] [address] Care Team Providers Care Mind Reader Name Role Phone [facility] Primary Care Provider Assessment Encounter Date Assessment Date Assessment LastModified by Organization Details LastModified Time 08/01/2023 08/01/2023 Annual gynecological exam performed. Patient will come back in a year unless there are new symptoms. [email or web address] Not available 08/01/2023 14:09:49 Plan of Treatment Reminders Order Date Submit Date Provider Last Modified By Organization Details Last Modified Time Details Appointments [facility] 2024 11:30A Adelfo GRIMM MD Not available Not available Not available Lab unlisted lab - [facility] swab plus, ADRI 2023 024 [facility] (Lab), [address], [place], [address], 05/18/2024 15:47:32 Referral None recorded. Procedures None recorded. Surgeries None recorded. Imaging None recorded. Medication Orders Diflucan 150 mg tablet 2023 024 [id number], [address] [place], [address], 05/16/2024 00:15:51 Patient TargetsNo targets recorded. Patient InstructionsNo instructions recorded. Reason for Referral None Reported. Results Created Date Observation Date Name Description Value Unit Range Abnormal Flag Note LastModifiedBy Organization Detail LastModifiedTime 05/15/2005/1505/15/2024 [facility] SWAB PLUS, ADRI bacterial vaginosis (bv), tma Positi ve negati ve abnormal Not Available [facility] (Lab) [address] [place], [address], 05/18/2024 15:47:32 05/15/20 24 05/15/2024 [facility] SWAB PLUS, ADRI laurent species, tma Negati ve negati ve Not Available [facility] (Lab) [address], [place], [address], 05/18/2024 15:47:32 05/15/20 24 05/15/2024 [facility] H SWAB PLUS, ADRI laurent glabrata, tma Negati ve negati ve Not Available [facility] (Lab) [address], [place], [address], 05/18/2024 15:47:32 05/15/20 24 05/15/2024 [facility]OM[facility] 'S HEALT H SWAB PLUS, ADRI trichomonas vaginalis, tma Negati ve negati ve Not Available [facility] (Lab) [address] [place], [address], 05/18/2024 15:47:32 05/15/20 24 05/15/2024 [facility], ADRI chlamydia trachomatis, PCR Negati ve negati ve Not Available [facility] (Lab) [address] [place], [address], 05/18/2024 15:47:32 05/15/20 24 05/15/2024 WOMEN 'S [...] ded in this panel . Not Available [facility] (Lab) [address], [place], [address], 05/18/2024 15:47:32 Result Notes None recorded. Problems Name Problem SNOMED Code Status Onset Date Resolution Date Notes Provider Name and Address Organization Details Recorded Time Normal pregnanc y in multigra ailyn [id number] 4106 Completed 201807/04/2021 Encounte r for suprvsn of normal pregnanc y, third trimeste r;Practi ce ID: 0001 Linn simms, [facility] 11:08:11 Uterine size for dates discrepa ncy Completed 201807/04/2021 Uterine size-merlin e discrepa ncy, third trimeste r;Practi ce ID: 0001 Linn simms, [facility] 11:11:29 Gestatio n period, 36 weeks [id number] Completed 201807/04/2021 36 weeks gestatio n of pregnanc y;Practi ce ID: 0001 Linn simms, [facility] 11:07:34 Hyperten sive disorder Completed 201807/04/2021 Unspecif ied maternal hyperten any, third trimeste r;Practi ce ID: 0001 Linn simms, [facility] 11:07:44 Steriliz ation procedur e Completed 201807/04/2021 Encounte r for steriliz ation;Pr actice ID: 0001 Linn Rosadotz demi, [facility] 11:08:54 Single live from singleto n pregnanc y [id number] Completed 201807/04/2021 Single live ;Pr actice ID: 0001 Linn Contreras demi, [facility] 11:08:50 Educatio n Completed 201807/04/2021 Encounte r for oth general cnsl and advice on contrace ption;Pr actice ID: 0001 Linn Contreras demi, [facility] 11:07:26 Pregnanc y test negative [id number] Completed 201807/04/2021 Encounte r for pregnanc y test, result negative ;Practic e ID: 0001 Linn Contreras demi, [facility] 11:08:37 Procedur e on genitour inary system Completed 201907/04/2021 Encounte r for surgical aftcr followin g surgery on the sys;Prac edis ID: 0001 Linn Contreras demi, [facility] 11:08:43 Postoper ative care Completed 201907/04/2021 Encounte r for surgical aftcr followin g surgery on the sys;Prac edis ID: 0001 Linn Contreras demi, [facility] 11:08:31 Routine antenata l care Completed 201207/04/2021 Supervis ion of other normal pregnanc y;Practi ce ID: 0001 Linn Contreras demi [facility] 11:08:45 Delivery normal [id number] Completed 201207/04/2021 Normal delivery ;Practic e ID: 0001 Linn simms, [facility] 11:07:22 Ill-defi marlena intestin al infectio n Completed 201207/04/2021 No Show Fee;Prac edis ID: 0001 Linn simms, [facility] 11:07:47 Postpart um care Completed 201207/04/2021 Postpart um follow-u p;Practi ce ID: 0001 Linn simms, [facility] 11:08:33 Insertio n of intraute rine contrace ptive device Completed 201207/04/2021 INSERTIO N OF IUD;Prac edis ID: 0001 Linn simms [facility] 11:07:56 Leukocyt osis [id number] Completed 201207/04/2021 LEUKOCYT OSIS NOS;Prac edis ID: 0001 [facility], [facility] 11:08:05 Vaginiti s and vulvovag initis Completed 201207/04/2021 Vaginiti s and vulvovag initis, unspecif ied;Prac edis ID: 0001 Linn simms, [facility] 11:11:31 Irregula r intermen strual bleeding [id number] Completed 201207/04/2021 Metrorrh agia;Pra ctice ID: 0001 [facility] Cont[facility], [facility] 11:07:59 Pregnanc y detectio n examinat ion Completed 201807/04/2021 Encounte r for pregnanc y test, result positive ;Practic e ID: 0001 Linn simms [facility] 11/02/202 1 11:08:35 Threaten ed miscarri age [id number] Completed 201107/04/2021 Threaten ed , antepart um;Recor ded Elsewher e: No Locat ion: [facility]janejanematthias borjas [facility] S ource: EHR Tile Layer Supervisor jeff: N Venancioti ce ID: 0001 Syed lable Time: 11:00:00 AM [facility] Cont[facility], [facility] 1 11:09:11 Antenata l screenin g Completed 201807/04/2021 Encounte r for antenata l screenin g for nuchal transluc ency;Rec orded Elsewher e: No Locat ion: Maryjaneeric suad [facility] S ource: EHR Tile Layer Supervisor jeff: N Practi ce ID: 0001 Syed lable Time: 01:00:00 PM [facility], [facility] 11:07:12 Gestatio n period, 8 weeks [id number] Completed 201807/04/2021 8 weeks gestatio n of pregnanc y;Record ed Elsewher e: No Locat ion: Maryjanejane suad [facility] S ource: EHR Tile Layer Supervisor jeff: N Practi ce ID: 0001 Syed lable Time: 03:45:00 PM Linn Contreras demi [facility] 1 11:07:42 At increase d risk of sexually transmit iliana infectio n [id number] Completed 201107/04/2021 Contact with or exposure to venereal diseases ;Recorde d Elsewher e: No Locat ion: Jaime suad [facility] S ource: EHR Tile Layer Supervisor jeff: N Practi ce ID: 0001 Syed lable Time: 01:00:00 PM Linn Contreras demi [facility] 1 11:07:16 Noninfla mmatory disorder of the vagina [id number] Completed 201107/04/2021 Other specifie d noninfla mmatory disorder s of vagina;R ecorded Elsewher e: No [facility] Supervisor jeff: N Practi ce ID: 0001 Syed lable Time: 02:45:00 PM Linn Ben demi [facility] 11:08:09 Gestatio n period, 38 weeks [id number] Completed 201807/04/2021 38 weeks gestatio n of pregnanc y;Record ed Elsewher e: No [facility] Tile Layer Supervisor jeff: N Practi ce ID: 0001 Syed lable Time: 11:00:00 AM Linn Ben demi [facility] 11:07:40 Left lower quadrant pain [id number] Completed 201007/04/2021 Abdomina l pain, left lower quadrant ;Practic e ID: 0001 [facility] 11:08:02 Adult health examinat ion Completed 201007/04/2021 Routine general medical examinat ion at a health care facility ;Practic e ID: 0001 [facility] 11:07:09 Speciali zed medical examinat ion Completed 201007/04/2021 Routine gynecolo gical examinat ion;Prac edis ID: 0001 Linn simms [facility] 11:08:52 Antenata l screenin g for malforma tion Completed 201807/04/2021 Encounte r for antenata l screenin g for malforma tions;Pr actice ID: 0001 Linn Contreras demi [facility] 11:07:15 Placenta previa [id number] Completed 201807/04/2021 Placenta previa specifie d as w/o hemor, second trimeste r;Practi ce ID: 0001 [facility] 11:08:28 Gestatio n period, 24 weeks [id number] Completed 201807/04/2021 24 weeks gestatio n of pregnanc y;Practi ce ID: 0001 [facility], [facility] 11:07:32 Rubella screenin g status [id number] Completed 201807/04/2021 Encounte r for antenata l screenin g, unspecif ied;Prac edis ID: 0001 [facility], [facility] 11:08:47 Labor and delivery complica iliana by heart rate anomaly [id number] Completed 201107/04/2021 ABNORMAL ITY IN HEART RATE OR RHYTHM, ANTEPART UM;Recor ded Elsewher e: No Locat ion: [facility] S ource: EHR Tile Layer Supervisor jeff: N Practi ce ID: 0001 Syed lable Time: 04:00:00 PM Linn Contreras [facility] 11:08:01 Family planning surveill ance Completed 201007/04/2021 Surveill ance of other contrace ptive method;R ecorded Elsewher e: No Locat ion: [facility] S ource: EHR Tile Layer Supervisor jeff: N Practi ce ID: 0001 Syed lable Time: 02:15:00 PM Linn Contreras [facility] 11:07:28 Pregnanc y test positive [id number] Completed 201107/04/2021 Pregnanc y examinat ion or test, positive result;R ecorded Elsewher e: No Locat ion: [facility] S ource: EHR Tile Layer Supervisor jeff: N Practi ce ID: 0001 Syed lable Time: 11:00:00 AM Linn Contreras [facility] 11:08:39 Screenin g for malignan t neoplasm of cervix Completed 201007/04/2021 Screenin g for malignan t neoplasm s of the cervix;R ecorded Elsewher e: No Locat ion: Gabino borjas [facility] S ource: [facility] jeff: N Armando ce ID: 0001 Syed lable Time: 11:30:00 AM Linn simms, [facility] 1 11:08:48 Dysfunct ional uterine bleeding Completed 201207/04/2021 Other disorder s of menstrua tion and other abnormal bleeding from female genital tract;Re corded Elsewher e: No Locat ion: [facility] S ource: [facility] jeff: N Venancioti ce ID: 0001 Syed lable Time: 01:00:00 PM Linn Contrersa [facility] 1 11:07:24 Amenorrh ea [id number] Completed 201107/04/2021 Absence of menstrua tion;Rec orded Elsewher e: No [facility] jeff: N Venancioti ce ID: 0001 Syed lable Time: 09:30:00 AM [facility], [facility] 1 11:07:10 Cyst of ovary [id number] Completed 201407/04/2021 Other and unspecif ied ovarian cyst;Rec orded Elsewher e: No [facility] jeff: N Practi ce ID: 0001 Syed lable Time: 10:41:35 AM [facility] 11:07:20 anatomy study Completed 201107/04/2021 [facility] ANATMC SURVEY;R ecorded Elsewher e: No [facility] jeff: N Venancioti ce ID: 0001 Syed lable Time: 01:00:00 PM Linn simms [facility] 1 11:07:30 Threat ed prematur e labor - not delivere d [id number] Completed 201207/04/2021 Threat ed prematur e labor, antepart um;Pract ice ID: 0001 Linn simms, [facility] 11:09:22 Primigra ailyn [id number] Completed 201107/04/2021 Supervis ion of normal first pregnanc y;Practi ce ID: 0001 Linn simms, [facility] 11:08:41 Problem Notes None recorded. Procedures Surgical History Date Name Laterality Status Provider Name and Address Organization Details Recorded Time 1 Date of Last Pap Smear completed Linnrobby Contreras [facility] 07/04/2021 11:13:38 9 Tubal Ligation completed Linn Contreras [facility] 07/04/2021 11:19:45 Imaging Results None recorded. Procedure Notes None recorded. Medical Equipment None Reported. Allergies Allergen ID Allergen Name Allergen Category Reaction Reaction Severity Criticality Documentation Date Start Date Code Code System Note Provider Name and Address Organization Details Recorded Time 68890 amoxicill in medicatio n Not available Not available Not available 08/19/2020 723 RxNorm Comme nt: Locat [facility]: [facility]; Not Available [facility] 0 14:14:53 58007 Product containin g penicilli n (product) medicatio n rash Not available Not available 08/19/2020 33081 8001 SNOMED React ion: rash; Comme nt: Locat ion: [facility]; Not Available [facility] 0 14:14:53 Medications Name Sig Start Date [...] (1) 7 MG PATCH FOR 14 DAYS. 08/01 completed Not Available Not Available Not [...] Prescrib ed Elsewher e: No Locat ion: [facility] odify By: bienvenido epperson DateTime : 08/18/20 12 12:03:42 PM Not Available Not Available Not Available hydrocodo ne 5 mg-acetam inophen 500 mg capsule take 1 capsule by oral route every 6 hours as needed 05/19 completed Prescrib ed Elsewher e: Yes Loca tion: [facility] odify By: natalia donahue DateTime : [...] Prescrib ed Elsewher e: Yes Loca tion: [facility] odify By: bienvenido epperson DateTime : 03/04/20 12 11:00:00 AM Not Available Not Available Not Available meloxicam 15 mg tablet TAKE 1 TABLET BY MOUTH EVERY DAY active Not Available Not Available No t Available naltrexon e 50 mg tablet TAKE [...] Prescrib ed Elsewher e: No Locat ion: [facility] odify By: nita joiner DateTime : 06/08/20 09:33:45 AM Not Available Not Available Not Available prednison e 20 mg tablet TAKE ONE TABLET BY MOUTH DAILY FOR 5 DAYS active Not Available Not Available No t Available dextroamp hetamine- amphetami ne 10 mg tablet TAKE 1 TABLET BY MOUTH EVERY DAY BEFORE BREAKFAS T AND AT NOON active Not Available Not Available No t Available clonazepa m 0.5 mg tablet TAKE 1 TABLET BY MOUTH THREE TIMES DAILY NEEDED active Not Available Not [...] Prescrib ed Elsewher e: Yes Loca tion: [facility] odify By: johny epperson DateTime : 06/16/20 [...] Prescrib ed Elsewher e: No Locat ion: [facility] odify By: nita Wynn r DateTime [...] Prescrib ed Elsewher e: No Locat ion: [facility] odify By: nita Linte r DateTime : 04/01/20 13 01:00:00 PM [...] Not Available No t Available Ortho-Nov um (28) 1 mg-35 mcg tablet take 1 tablet by oral route every day for 28 days 08/28 completed [facility] ed Elsewher e: No Locat ion: [facility] su[facility] odify By: johny epperson DateTime : [...] No t Available dextroamp hetamine- amphetami ne ER 30 mg 24hr capsule,e xtend release TAKE 1 CAPSULE BY MOUTH EVERY DAY IN THE MORNING UPON AWAKENIN G active Not Available Not Available No t Available Klonopin 1 mg tablet take 1 tablet by oral route 4 times every day 02/16 completed [facility] ed Elsewher e: Yes Loca [facility]ion: [facility] odify By: bienvenido epperson DateTime : [...] Prescrib ed Elsewher e: No [facility] By: smcaley Tianna r DateTime : 04/27/20 19 09:03:02 AM Not Available Not Available Not Available azithromy ciro 500 mg tablet take 2 tablet (1000MG) by oral route once 03/04 completed Prescrib ed Elsewher e: No Locat ion: Gabino borjas [facility] odify By: rylan moyer Enco unter DateTime : 09/24/19 12 10:09:31 AM Not Available Not Available Not Available escitalop virgie 10 mg tablet TAKE 1 TABLET BY MOUTH ONCE DAILY active Not Available Not Available No t Available Flexeril 5 mg tablet take 1 tablet (5MG) by oral route 3 times every day 03/04 completed Prescrib ed Elsewher e: Yes Loca tion: Gabino borjas [facility] odify By: rylan moyer Enco unter DateTime [...] Prescrib ed Elsewher e: Yes [facility] By: jlpgeorgie moyer Enco unter DateTime : 06/16/20 11 [...] Prescrib ed Elsewher e: No [facility] By: nita joiner DateTime : 10/16/19 19 11:48:09 AM Not Available Not Available Not Available Vitafol-O ne 29 mg iron-1 mg-200 mg capsule 03/04 completed Prescrib ed Elsewher e: Yes [facility] By: rylan lester DateTime : 06/16/20 11 02:36:12 PM Not Available Not Available Not Available Daily-Vit e (with folic acid) 400 mcg tablet active Not Available Not Available Not Available Vitals Date Recorded Body height Body mass index (BMI) Body weight Systolic And Diastolic Provider Name and Address Organization Details Last Updated DateTime 08/01/2023 154.94 cm 27.4 kg/m2 57321.89 g 132/79 mm[Hg] Beba Chua [facility] 08/01/2023 14:26:11 Social History Question Answer Notes LastModified by Organizat ion Details LastModified Time Tobacco Smoking Status Never Smoker Marianne Frost [facility] 08/01/2023 14:03:42 Are You Blind Or Do You Have [...] Yes Information not available 07/12/2021 Do You Use Sunscreen Routinely? Yes Information not available 07/12/2021 Sex: Unknown Functional Status Question Answer Note LastModified by Organizat ion Details LastModified Time Do you use any illicit or recreational drugs? No Information not available 07/12/2021 What is your level of alcohol consumption? Occasional Information not available 07/12/2021 Are you able to walk? YESWOREST Information not available 07/12/2021 What is your exercise level? Moderate Information not available 07/12/2021 Mental Status Question Answer Note LastModified by Organization D etails LastModified Time Do you feel stressed (tense, restless, nervous, or anxious, or unable to sleep at night)? [id number] Information not available 07/12/2021 Family History Relationship Description Onset Age of this Age Resolved Age Notes LastModified by Organization Details LastModified Time Sister Malignant tumor of cervix [email or web address] Not available 07/04 11:18:01 Sister Cyst of ovary [email or web address] Not available 2022 14:03:41 Mother Malignant tumor of cervix [email or web address] Not available 07/04 11:18:01 Mother Cyst of ovary [email or web address] Not available 2022 14:03:41 Maternal Aunt Malignant tumor of cervix [email or web address] Not available 07/04 11:18:01 Maternal Aunt Cyst of ovary Not available 2022 14:03:41 Maternal Grandmother Cyst of ovary [email or web address] Not available 2022 14:03:41 Paternal Grandfather Diabetes mellitus [email or web address] Not available 07/04 11:19:02 Father Disease of liver [email or web address] Not available 2022 14:03:41 Medical History Condition Response Other Y Blood Transfusion N Dermatologic Disorders N Gestational Diabetes N Anxiety Disorder Y Autoimmune disease N Arthritis N Polyps N Infertility N Acid Reflux (GERD) N Cancer N Varicosities N Stroke N Neurologic/Epilepsy Y Fibromyalgia N Headaches N Kidney Disease N Heart Problems N Kidney or Bladder Problems N Eating Disorder N Art (IVF or FET) N Hepatitis/Liver Disease N No Past Medical History N Urinary Tract Infection N Asthma N Trauma/Violence N Thrombophilias N Allergies (Food, seasonal, environmental ) N Breast Cancer N Drug/Latex Allergies/Reactions N Lung Disease N Defects or Inherited Disease N Breast Problem N Hematologic disorders N Anesthesia Complications N History of STI Y Deep Vein Thrombosis N Polycystic ovary syndrome N History of abnormal pap Y Endometriosis N High Cholesterol N Thyroid Problems N GI Problems N Anemia N Psychiatric Illness Y Ovarian Cancer N Diabetes N Pulmonary (TB, Asthma) N Eczema N Abuse/Domestic Violence N Depression/ depression Y Heart Disease N Pre-Eclampsia N Hypertension Y Osteoporosis N Gynecological History Statement/Question Response Abnormal Pap [...] SNOMED-CT Code Diagnosis ICD10 Code Diagnosis Note [id number] Joshua Grimm MD [place] [address] [address] 08/01/2023 14:00:21 08/01/2023 15:25:36 Gynecologic examination 20493960 Z01.419 Annual gynecologi radha exam performed. Patient [...] na Pap smear- laboratory evaluation - ordered [id number] Joshua Grimm MD [place] [address] [address] 05/15/2024 16:26:53 05/15/2024 16:43:54 Venereal disease screening 021974428 Z11.3 Vaginitis 33274458 N76.0 Health Concerns Section Related Observation LastModified by Organization Detai ls LastModified Time None Recorded Concern Status LastModified by Organization Details LastModified Time None Recorded Advance Directives Directive None Recorded Payers Insurance Date Sequence Insurance Name Policy Number Policy Ayala Covered Member ID Ayala Member ID Guarantor Name 07/08/2023 1 *SELF PAY* Maurice Maier 03/02/2025 1 [facility] (MEDICAID HMO) [id number] Noreen Maier [id number] Noreen Maier Notes Date Note Type Note [...] exercise Joshua Grimm MD [address], [place], [address], [facility] 08/01/2023 15:00:47 OBGyn Episode Ob Episode Information Episode Created Date Number of Fetuses Patient Bloodtype Patient rh Status Prepregnancy Weight lbs Domestic Partner Domestic Partner Phone Father Name Sales Service Technician Status 07/04/20 21 1 CLOSED Fetus Data First Name Last Name Admitted to NICU Weight (g) Sex Living Outcome Pediatric Complications Fetus ID Race Codes Race Delivery Type 4337.24 6704 M Full Term 74098 Vaginal Delivery Zach Calculation Initial Zach Date [...] Domestic Partner Domestic Partner Phone Father Name Sales Service Technician Status 07/04/20 21 1 CLOSED Fetus Data First Name Last Name Admitted to NICU Weight (g) Sex Living Outcome Pediatric Complications Fetus ID Race Codes Race Delivery Type 3656.85 8704 F Full Term 53037 Vaginal Delivery Zach Calculation Initial Zach Date [...] Domestic Partner Domestic Partner Phone Father Name Sales Service Technician Status 07/04/20 21 1 CLOSED Fetus Data First Name Last Name Admitted to NICU Weight (g) Sex Living Outcome Pediatric Complications Fetus ID Race Codes Race Delivery Type , Induced 36624 Zach Calculation Initial Zach Date Initial Exam [...] Domestic Partner Domestic Partner Phone Father Name Sales Service Technician Status 07/04/20 21 1 CLOSED Fetus Data First Name Last Name Admitted to NICU Weight (g) Sex Living Outcome Pediatric Complications Fetus ID Race Codes Race Delivery Type 2891.64 9 M Full Term 59971 Vaginal Delivery Zach Calculation Initial Zach Date [...]
--- OUTSIDE RECORDS SUMMARY | 2025-03-07 21:40 | XMS_ITS | Clinical Summary ---
Author Organization [facility] Address [address] [place] [address] Phone Care Team Providers Care Elevator Repair Mechanic Name Role Phone Unavailable Primary Care Provider [...] Virus (HCV) Screening 1987 TdaP Immunization 1987 Human Papillomavirus (HPV) Immunization (1 - 3-dose series) 2002 Hepatitis B Immunization (1 of 3 - 19+ 3-dose series) 2006 SARS-COV-2 Immunization ( season) 2024 09/28/2021, 09/24/2020, 09/03/2020 Influenza Immunization (Season Ended) 2025 09/28/2021, 05/16/2019, 06/05/2018, Additional history exists Respiratory Syncytial Virus (RSV) Immunization (Adult) (1 - 1-dose 75+ series) 2062 Meningococcal Immunization (ACWY) Aged Out No longer eligible based on patient's age to complete this topic Pneumococcal Immunization Combined Aged Out No longer eligible based on patient's age to complete this topic Rotavirus Immunization Aged Out No lo nger eligible based on patient's age to complete this topic Insurance MEDICAID [place]
--- OUTSIDE RECORDS SUMMARY | 2025-03-07 21:40 | XMS_ITS | Continuity of Care Document ---
Author Organization [facility] Address [address] [place] [address] [place] [address] Phone Care Team Providers Care Director Of Bands Name Role Phone Kvng Curiel MD Unavailable Unavailable Allergies, Adverse Reactions, Alerts Substance Reaction Status Criticality Penicillins Active No Information Medications Medication Instructions Dosage Effective Dates (start - stop) Status Comments [place] 5 mg-325 mg tablet take 1 tablet [...] Copied on Encounter OFFICE/OUTPA TIENT VISIT, EST [facility], [address], [place], [place], [address], [place] tel:[phone] [facility] ADD (chief complaint) toothache (chief complaint) anxiety (chief complaint) Attention deficit disorder of childhood without mention of hyperactivityGenera lized anxiety disorderAtypical face pain 2 4 Moisés Calderon. [address], [place], [place], [address] , [place]. tel:[phone] Referring Provider: Chelsea Velásquez [address], [place], [place], [address]. tel:[phone] PREV VISIT, EST, AGE 18-39 [facility], [address], [place], [place], [address], [place] tel:[phone] [facility] Physical (chief complaint) Routine Medical ExamRoutine Medical Exam 0 4 Moisés Calderon. [address], [place], [place], [address] , [place]. tel:[phone] Referring Provider: Chelsea Velásquez [address], [place], [place], [address]. tel:[phone] OFFICE/OUTPA TIENT VISIT, EST [facility], [address], [place], [place], [address], [place] tel:[phone] [facility] toothache (chief complaint) anxiety (chief complaint) back pain (chief complaint) Atypical face painLumbagoGenerali zed anxiety disorderAttention deficit disorder of childhood without mention of hyperactivity 4 Moisés Calderon. [address], [place], [place], [address] , [place]. tel:[phone] Referring Provider: Chelsea Velásquez [address], [place], [place], [address]. tel:[phone] OFFICE/OUTPA TIENT VISIT, EST [facility], [address], [place], [place], [address], [place] tel:[phone] [facility] anxiety (chief complaint) ADD (chief complaint) back pain (chief complaint) LumbagoAttention deficit disorder of childhood without mention of hyperactivityGenera lized anxiety disorderBipolar disorder, unspecified 4 Moisés Calderon. [address], [place], [place], [address] , [place]. [phone] Referring Provider: Chelsea Velásquez [address], [place], [place], [address]. tel:[phone] OFFICE/OUTPA TIENT VISIT, [facility], [place], [facility], [address], [place], [place], [address], [place] tel:[phone] [facility] anxiety (chief complaint) back pain (chief complaint) LumbagoAttention deficit disorder of childhood without mention of hyperactivityGenera lized anxiety disorderPain in joint involving shoulder region 3 Moisés Calderon. [address], [place], [place], [address] , [place]. [phone] Referring Provider: Chelsea Velásquez [address], [place], [place], [address]. tel:[phone] OFFICE/OUTPA TIENT VISIT, [facility], [place], [facility], [address], [place], [place], [address], [place] tel:[phone] [facility] back pain (chief complaint) anxiety (chief complaint) ADD (chief complaint) LumbagoAttention deficit disorder of childhood without mention of hyperactivityGenera lized anxiety disorder 3 Moisés Calderon. [address], [place], [place], [address] , [place]. [phone] Referring Provider: Chelsea Velásquez [address], [place], [place], [address]. tel:[phone] PREV VISIT, EST, AGE 18-39 [facility], [address], [place], [place], [address], [place] tel:[phone] [facility] anxiety (chief complaint) back pain (chief complaint) ADD (chief complaint) Routine Medical ExamAttention deficit disorder of childhood without mention of hyperactivityGenera lized anxiety disorderLumbFormerly [facility] Medical Exam 3 Moisés Calderon. [address], [place], [place], [address] , [place]. tel:[phone] Referring Provider: Chelsea Velásquez [address], [place], [place], [address]. tel:[phone] OFFICE/OUTPA TIENT VISIT, [facility], [place], [facility], [address], [place], [place], [address], [place] tel:[phone] [facility] anxiety (chief complaint) ADD (chief complaint) back pain (chief complaint) LumbagoAttention deficit disorder of childhood without mention of hyperactivityGenera lized anxiety disorder 3 Moisés Calderon. [address], [place], [place], [address] , [place]. tel:[phone] Referring Provider: Chelsea Velásquez [address], [place], [place], [address]. tel:[phone] OFFICE/OUTPA TIENT VISIT, [facility], [place], [facility], [address], [place], [place], [address], [place] tel:[phone] [facility] back pain (chief complaint) anxiety (chief complaint) ADD (chief complaint) LumbagoAttention deficit disorder of childhood without mention of hyperactivityGenera lized anxiety disorder 3 Moisés Calderon. [address], [place], [place], [address] , [place]. tel:[phone] Referring Provider: Chelsea Velásquez [address], [place], [place], [address]. tel:[phone] OFFICE/OUTPA TIENT VISIT, [facility], [place], [facility], [address], [place], [place], [address], [place] tel:[phone] [facility] back pain (chief complaint) anxiety (chief complaint) ADD (chief complaint) LumbagoAttention deficit disorder of childhood without mention of hyperactivityGenera lized anxiety disorder Kush- 3 Moisés Calderon. [address], [place], [place], [address] , [place]. tel:[phone] Referring Provider: Kvng Curiel, [address], [place], [place], [address]. tel:[phone] OFFICE/OUTPA TIENT VISIT, [facility], [place], [facility], [address], [place], [place], [address], [place] tel:[phone] [facility] back pain (chief complaint) anxiety (chief complaint) ADD (chief complaint) Generalized anxiety disorderAttention deficit disorder of childhood without mention of hyperactivityLumbag o 3 Moisés Calderon. [address], [place], [place], [address] , [place]. [phone] Referring Provider: Kvng Curiel [address], [place], [place], [address]. tel:[phone] OFFICE/OUTPA TIENT VISIT, [facility], [place], [facility], [address], [place], [place], [address], [place] tel:[phone] [facility] back pain (chief complaint) anxiety (chief complaint) ADD (chief complaint) LumbagoAttention deficit disorder of childhood without mention of hyperactivityGenera lized anxiety disorder Apr-3 3 Moisés Calderon. [address], [place], [place], [address] , [place]. tel:[phone] Referring Provider: Kvng Curiel [address], [place], [place], [address]. tel:[phone] OFFICE/OUTPA TIENT VISIT, [facility], [place], [facility], [address], [place], [place], [address], [place] tel:[phone] [facility] back pain (chief complaint) anxiety (chief complaint) ADD (chief complaint) LumbagoAttention deficit disorder of childhood without mention of hyperactivityGenera lized anxiety disorder Apr-0 2-201 3 Moisés Calderon. [address], [facility] A, [place], [place], [address] , [place]. tel:[phone] Referring Provider: Kvng Curiel, [address], [place], [place], [address]. tel:[phone] OFFICE/OUTPA TIENT VISIT, EST [facility], [address], [place], [place], [address], [place] tel:[phone] [facility] ADD (chief complaint) Attention deficit disorder of childhood without mention of hyperactivity 3 Moisés Calderon. [address], [facility] A, [place], [place], [address] , [place]. tel:[phone] Referring Provider: Kvng Curiel, [address] [facility] A, [place], [place], [address]. tel:[phone] Family History Family Member Type Diagnosis Age At Onset Sister Problem (finding) Alive and well Father Problem (finding) Alive and well Mother Problem (finding) Alive and well Payers Payer name Insurance type Covered republican ID Authoriza tion(s) No Information Social History [...] Mental Status Date Cognitive Assessment Orientation - Stella ed to time, place, person, situation.
[2025-03-07 21:50] VITALS: BP 137/93; PULSE 89; RESP 14; TEMP 36.2; O2SAT 99
--- NOTE | 2025-03-07 22:33 | ED.GENADULT ---
HPI - General Adult General Chief complaint: Unspecified Stated complaint: c diff in eye Time Seen by Provider: 03/07/25 22:07 History of Present Illness HPI narrative: When I went to her room, patient was gone; she had told nursing that she knew a provider and was going to get bloodwork done. Related Data Allergies Allergy/AdvReac Type Severity Reaction Status Date / Time amoxicillin Allergy Mild RASH Verified 04/23/24 18:03 morphine Allergy Mild Hives Verified 04/23/24 18:03 Penicillins Allergy Mild RASH Verified 04/23/24 18:03 latex Allergy Unknown Verified 04/23/24 18:03 [facility] Past Medical History Medical History Anxiety Overweight (BMI 25.0-29.9) Seizure disorder remote history. 2 seizures 10 years ago. Surgical History Surgical History No history of previous surgery Family History Family History Other No acute medical problems Social History Social History Smoking status: Former smoker Gender identity (if verbalized by the patient): Female Course Vital Signs Vital signs: Vital Signs Temperature 97.2 F L 03/07/25 21:50 Pulse Rate 89 03/07/25 21:50 Respiratory Rate 14 03/07/25 21:50 Blood Pressure 137/93 H 03/07/25 21:50 Pulse Oximetry 99 03/07/25 21:50 Oxygen Delivery Room Air 03/07/25 21:50 Temperature 97.2 F L 03/07/25 21:50 Pulse Rate 89 03/07/25 21:50 Respiratory Rate 14 03/07/25 21:50 Blood Pressure 137/93 H 03/07/25 21:50 Pulse Oximetry 99 03/07/25 21:50 Oxygen Delivery Room Air 03/07/25 21:50 Medical Decision Making Vital Signs Vital Signs: Vital Signs Temperature 97.2 F L 03/07/25 21:50 Pulse Rate 89 03/07/25 21:50 Respiratory Rate 14 03/07/25 21:50 Blood Pressure 137/93 H 03/07/25 21:50 Pulse Oximetry 99 03/07/25 21:50 Oxygen Delivery Room Air 03/07/25 21:50 Temperature 97.2 F L 03/07/25 21:50 Pulse Rate 89 03/07/25 21:50 Respiratory Rate 14 03/07/25 21:50 Blood Pressure 137/93 H 03/07/25 21:50 Pulse Oximetry 99 03/07/25 21:50 Oxygen Delivery Room Air 03/07/25 21:50 Discharge Plan Discharge Clinical Impression: Chemical exposure of eye Patient Disposition: Left Without Being Seen Patient Language: Nepali Prescriptions: No Action prednisone 20 mg tablet 20 mg PO DAILY 5 Days Qty: 5 0RF triamcinolone acetonide 0.1 % ointment 1 applic topical TID 7 Days Qty: 30 0RF Rx Instructions: apply to affected area famotidine [Pepcid] 20 mg tablet 20 mg PO DAILY Qty: 7 0RF meloxicam 15 mg tablet 15 mg PO DAILY Qty: 10 0RF Follow-up/Referrals: UNKNOWN,DOCTOR [Primary Care Provider] -
--- NOTE | 2025-03-07 22:45 | PC.NURSE ---
Addendum entered by Aicha Woo RN 03/07/25 22:47: Pt left at 22:25. Original Note: Pt presented to nurse's station stating that she does not want to wait any longer because she has been at work all day and said she will just come back tomorrow, pt hurried out towards exit with steady gait. Pt left prior to being evaluated by provider or primary RN.
--- OUTSIDE RECORDS SUMMARY | 2025-03-07 22:51 | XMS_ITS | Clinical Summary ---
Author Organization [facility] Address [address] [place] [address] Phone Care Team Providers Care Boat Diesel Motor Mechanic Name Role Phone Unavailable Primary Care [...]
--- OUTSIDE RECORDS SUMMARY | 2025-03-07 22:51 | XMS_ITS | Continuity of Care Document ---
Author Organization [facility] Address [address] [place] [address] [place] [address] Phone Care Team Providers Care Rn Case Manager Hospice Name Role Phone Kvng Curiel MD Unavailable Unavailable Allergies, Adverse Reactions, Alerts Substance Reaction Status Criticality Penicillins Active No Information Medications Medication Instructions Dosage Effective Dates (start - stop) Status Comments [place] 5 mg-325 mg tablet take 1 tablet [...] Copied on Encounter OFFICE/OUTPA TIENT VISIT, EST [facility], [address], [place], [place], [address], [place] tel:[phone] [facility] ADD (chief complaint) toothache (chief complaint) anxiety (chief complaint) Attention deficit disorder of childhood without mention of hyperactivityGenera lized anxiety disorderAtypical face pain 2 4 Moisés Calderon. [address], [address], [place], [place], [address] , [place]. tel:[phone] Referring Provider: Chelsea Velásquez [address], [place], [place], [address]. tel:[phone] PREV VISIT, EST, AGE 18-39 [facility], [address], [place], [place], [address], [place] tel:[phone] [facility] Physical (chief complaint) Routine Medical ExamRoutine Medical Exam 0 4 Moisés Calderon. [address], [place], [place], [address] , [place]. tel:[phone] Referring Provider: Chelsea Velásquez [address], [place], [place], [address]. tel:[phone] OFFICE/OUTPA TIENT VISIT, EST [facility], [address], [place], [place], [address], [place] tel:[phone] [facility] toothache (chief complaint) anxiety (chief complaint) back pain (chief complaint) Atypical face painLumbagoGenerali zed anxiety disorderAttention deficit disorder of childhood without mention of hyperactivity 4 Moisés Calderon. [address], [place], [place], [address] , [place]. tel:[phone] Referring Provider: Chelsea Velásquez [address], [place], [place], [address]. tel:[phone] OFFICE/OUTPA TIENT VISIT, EST [facility], [address], [place], [place], [address], [place] tel:[phone] [facility] anxiety (chief complaint) ADD (chief complaint) back pain (chief complaint) LumbagoAttention deficit disorder of childhood without mention of hyperactivityGenera lized anxiety disorderBipolar disorder, unspecified 4 Moisés Calderon. [address], [place], [place], [address] , [place]. tel:[phone] Referring Provider: Chelsea Velásquez [address], [place], [place], [address]. tel:[phone] OFFICE/OUTPA TIENT VISIT, [facility], [address], [place], [place], [address], [place] tel:[phone] [facility] anxiety (chief complaint) back pain (chief complaint) LumbagoAttention deficit disorder of childhood without mention of hyperactivityGenera lized anxiety disorderPain in joint involving shoulder region 3 Moisés Calderon. [address], [place], [place], [address] , [place]. [phone] Referring Provider: Chelsea Velásquez [address], [place], [place], [address]. tel:[phone] OFFICE/OUTPA TIENT VISIT, [facility] ([facility], [address], [place], [place], [address], [place] tel:[phone] [facility] back pain (chief complaint) anxiety (chief complaint) ADD (chief complaint) LumbagoAttention deficit disorder of childhood without mention of hyperactivityGenera lized anxiety disorder 3 Moisés Calderon. [address], [place], [place], [address] , [place]. [phone] Referring Provider: Chelsea Velásquez [address], [place], [place], [address]. tel:[phone] PREV VISIT, EST, AGE 18-39 [facility], [address], [place], [place], [address], [place] tel:[phone] [facility] anxiety (chief complaint) back pain (chief complaint) ADD (chief complaint) Routine Medical ExamAttention deficit disorder of childhood without mention of hyperactivityGenera lized anxiety disorderLumbBeaumont Hospital Medical Exam 3 Moisés Calderon. [address], [place], [place], [address] , [place]. tel:[phone] Referring Provider: Chelsea Velásquez [address], [place], [place], [address]. tel:[phone] OFFICE/OUTPA TIENT VISIT, [facility] ([place], [address], [place], [place], [address], [place] tel:[phone] [facility] anxiety (chief complaint) ADD (chief complaint) back pain (chief complaint) LumbagoAttention deficit disorder of childhood without mention of hyperactivityGenera lized anxiety disorder 3 Moisés Calderon. [address], [place], [place], [address] , [place]. tel:[phone] Referring Provider: Chelsea Velásquez [address], [place], [place], [address]. tel:[phone] OFFICE/OUTPA TIENT VISIT, [facility] ([place], [address], [place], [place], [address], [place] tel:[phone] [facility] back pain (chief complaint) anxiety (chief complaint) ADD (chief complaint) LumbagoAttention deficit disorder of childhood without mention of hyperactivityGenera lized anxiety disorder 3 Moisés Calderon. [address], [place], [place], [address] , [place]. tel:[phone] Referring Provider: Chelsea Velásquez [address], [place], [place], [address]. tel:[phone] OFFICE/OUTPA TIENT VISIT, [facility] ([place], [address], [place], [place], [address], [place] tel:[phone] [facility] back pain (chief complaint) anxiety (chief complaint) ADD (chief complaint) LumbagoAttention deficit disorder of childhood without mention of hyperactivityGenera lized anxiety disorder Kush- 3 Moisés Calderon. [address], [place], [place], [address] , [place]. tel:[phone] Referring Provider: Kvng Curiel, [address], [place], [place], [address]. tel:[phone] OFFICE/OUTPA TIENT VISIT, [facility] ([place], [address], [place], [place], [address], [place] tel:[phone] [facility] back pain (chief complaint) anxiety (chief complaint) ADD (chief complaint) Generalized anxiety disorderAttention deficit disorder of childhood without mention of hyperactivityLumbag o 3 Moisés Calderon. [address], [place], [place], [address] , [place]. [phone] Referring Provider: Kvng Curiel [address], [place], [place], [address]. tel:[phone] OFFICE/OUTPA TIENT VISIT, [facility] ([place], [address], [place], [place], [address], [place] tel:[phone] [facility] back pain (chief complaint) anxiety (chief complaint) ADD (chief complaint) LumbagoAttention deficit disorder of childhood without mention of hyperactivityGenera lized anxiety disorder Apr-3 3 Moisés Calderon. [address], [place], [place], [address] , [place]. tel:[phone] Referring Provider: Kvng Curiel [address], [place], [place], [address]. tel:[phone] OFFICE/OUTPA TIENT VISIT, [facility] ([place], [address], [place], [place], [address], [place] tel:[phone] [facility] back pain (chief complaint) anxiety (chief complaint) ADD (chief complaint) LumbagoAttention deficit disorder of childhood without mention of hyperactivityGenera lized anxiety disorder Apr-0 2-201 3 Moisés Calderon. [address], [facility] [address], [place], [place], [address] , [place]. tel:[phone] Referring Provider: Kvng Curiel, [address], [place], [place], [address]. tel:[phone] OFFICE/OUTPA TIENT VISIT, EST [facility], [address], [place], [place], [address], [place] tel:[phone] [facility] ADD (chief complaint) Attention deficit disorder of childhood without mention of hyperactivity 3 Moisés Calderon. [address], [facility] [address], [place], [place], [address] , [place]. tel:[phone] Referring Provider: Kvng Curiel, [address] [facility] [address], [place], [place], [address]. tel:[phone] Family History Family Member Type Diagnosis Age At Onset Sister Problem (finding) Alive and well Father Problem (finding) Alive and well Mother Problem (finding) Alive and well Payers Payer name Insurance type Covered alliance party ID Authoriza tion(s) No Information Social [...] Mental Status Date Cognitive Assessment Orientation - Caro ed to time, place, person, situation.
--- OUTSIDE RECORDS SUMMARY | 2025-03-07 22:51 | XMS_ITS | Clinical Summary ---
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
== END 2025-03-07 22:25 | disposition left against medical advice (07) ==
LOC: ANHED 22:50
PROVIDERS: Emergency Provider Emergency Medicine
DX: Z77.098 Contact with and (suspected) exposure to other hazardous, chiefly nonmedicinal, chemicals (principal)
CPT/HCPCS: 99199

== ENCOUNTER 2025-03-22 14:22 | Emergency (ER) | payer OTHER, SELFPAY ==
[2025-03-22 14:23] VITALS: BP 122/78; PULSE 90; RESP 16; TEMP 36.3; O2SAT 99
--- OUTSIDE RECORDS SUMMARY | 2025-03-22 14:26 | XMS_ITS | Patient Health Record ---
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
--- OUTSIDE RECORDS SUMMARY | 2025-03-22 14:26 | XMS_ITS | Clinical Summary ---
Author Organization [facility] Address [address] [place] [address] Phone Care Team Providers Care Collator Operator Name Role Phone Provider, None Primary Care Provider Unavailabl e Allergies Active Allergy Reactions Criticality Noted Date Comments Penicillins Hives,Unknown 09/02/2022 amoxicillin Sulfa Antibiotics Hives 03/08/2025 Medications ALPRAZolam 2 MG Tablet 2 Active amphetamine-de xtroamphetamin e (ADDERALL) 30 MG Tablet Take 30 mg by mouth 2 times daily. 2 Active permethrin (ACTICIN) 5 % Cream permethrin 5 % topical cream Active traMADol (ULTRAM) 50 MG Tablet tramadol 50 mg tablet Active triamcinolone (KENALOG) 0.025 % Cream triamcinolone acetonide 0.025 % topical cream Active Encounters Date Type Department Care Team Description 03/08/2025 1:21 PM CDT - 03/08/2025 2:14 PM CDT Emergency [facility] Emergency [address] [place] [address] Keshia Mak PAC Dysuria Discharge Disposition: Discharged to home or Selfcare 03/08/2025 Travel from Last 3 Months Social History Tobacco Use Types Packs/Day Years Used Date Smoking Tobacco: Former Cigarettes Smokeless Tobacco: Never Tobacco Cessation:Counseling Given: Not Answered Comments Unknown Sex and Gender Information Value Date Recorded Sex Assigned at Not on file Legal Sex Female 7:18 PM CDT Gender Identity Not on file Sexual Orientation Not on file Last Filed Vital Signs Vital Sign Reading Time Taken Comments Blood Pressure 128/86 03/08/2025 1:15 PM CDT Pulse 75 03/08/2025 1:15 PM CDT Temperature 36.4 C (97.6 F) 03/08/2025 1:15 PM CDT Respiratory Rate 18 03/08/2025 1:15 PM CDT Oxygen Saturation 99% 03/08/2025 1:15 PM CDT Inhaled Oxygen Concentration - - Weight 62.6 kg (138 lb) 03/08/2025 1:15 PM CDT Height 152.4 cm (5') 03/08/2025 1:15 PM CDT Body Mass Index 26.95 03/08/2025 1:15 PM CDT Plan of Treatment Health Maintenance Due Date Last Done Comments Hepatitis C Virus (HCV) Screening 1987 TdaP Immunization 1987 Human Papillomavirus (HPV) Immunization (1 - 3-dose series) 2002 Hepatitis B Immunization (1 of 3 - 19+ 3-dose series) 2006 Pap Smear 2008 Cervical Cancer Screening (CCS) 2017 HPV/Cotest 2017 SARS-COV-2 Immunization ( season) 2024 09/28/2021, 09/24/2020, 09/03/2020 Influenza Immunization (#1) 05/03/202509/03, 05/16/2019, 06/05/2018, Additional history exists Respiratory Syncytial [...] on patient's age to complete this topic Procedures Procedure Name Priority Date/Time Associated Diagnosis Comments POCT URINE HCG () STAT 03/08/2025 1:33 PM CDT URINALYSIS REFLEX IF INDICATED BY ABNORMAL RESULTS STAT 03/08/2025 1:30 PM CDT from Last 3 Months Results * POCT Urine HCG () (03/08/2025 1:33 PM CDT) [facility] POC URINE Negative POC URINE CONTROL [employer] Urine 03/08/2025 1:33 PM CDT Keshia William Page PAC POINT OF CARE TESTING (KEL Avalos) Final Result * (ABNORMAL) URINALYSIS REFLEX IF INDICATED BY ABNORMAL RESULTS (03/08/2025 1:30 PM CDT) [facility] SPECIFIC GRAVITY 1.020 1.003 - 1.030 03/08/2025 2:[address] [facility] URINE PH 6.0 5.0 - 9.0 03/08/2025 2:[address] [facility] WBC ESTERASE Negative Negative 03/08/2025 2:[address] [facility] NITRITE Negative Negative 03/08/2025 2:[address] [facility] PROTEIN, RANDOM URINE 30 mg/dL(A) Negative 03/08/2025 2:[address] [facility] URINE GLUCOSE, QUAL Negative Negative 03/08/2025 2:[address] [facility] URINE KETONES 5 mg/dL(A) Negative 03/08/2025 2:[address] [facility] UROBILINOGEN Normal Normal mg/dL 03/08/2025 2:[address] [facility] URINE BLOOD Negative Negative nirav/ul 03/08/2025 2:[address] [facility] URINALYSIS COLOR Yellow 03/08/20 2:[address] [facility] URINALYSIS CLARITY Slightly Cloudy 03/08/2025 2:[address] [facility] WBC (Urine) 0-5 Negative, 0-5 /hpf 03/08/2025 2:[address] [facility] URINE RBC'S 0-2 Negative, 0-2 /hpf 03/08/2025 2:[address] [facility] EPITHELIAL CELLS Moderate amount /lpf 03/08/2025 2:[address] [facility] BACTERIA, URINE Few(A) Negative /hpf 03/08/2025 2:[address] [facility] URINE MUCOUS Few 03/08/2025 2:[address] [facility] CRYSTALS Calcium oxalate 03/08/2025 2:[address] [facility] Urine URINE SPECIMEN OBTAINED BY CLEAN CATCH PROCEDURE / Unknown Non-Phlebotomy Collection / Unknown 03/08/2025 1:30 PM CDT 03/08/2025 1:38 PM CDT us Keshia William Page PAC URINE ORDERABLES Final Resul t [facility] [address] [place] [address] from Last 3 Months Insurance [id number] Member Subscriber Plan / Payer (Ef fective for All Dates) Name:Noreen Maier Relation to Subscriber:Self Name:Noreen Maier Payer ID:[id number] (IC) Type:Not on file Address: [address] [address] GENERIC Care Teams Collator Operator Relationship Specialty Start Date End Date Provider, None [place] PCP - General 03/08/25
--- OUTSIDE RECORDS SUMMARY | 2025-03-22 14:26 | XMS_ITS | Data Portability ---
[facility] Organization [facility], [place] Address [address] [place] [address] Care Team Providers Care Oyster Shucker Name Role Phone [facility] Primary Care Provider Assessment Encounter Date Assessment [...] None recorded. Lab unlisted lab - [facility] swab plus, ADRI 2023 024 [facility] (Lab), [address] [facility], [place], [address], 4 15:47:32 Referral None recorded. Procedures None recorded. Surgeries None recorded. Imaging None recorded. Medication Orders Diflucan 150 mg tablet 2023 024 [id number], [address] [place], [address], 4 00:15:51 Patient TargetsNo targets recorded. Patient InstructionsNo instructions recorded. Reason for Referral None Reported. Results Created Date Observation Date Name Description Value Unit Range Abnormal Flag Note LastModifiedBy Organization Detail LastModifiedTime 05/15/20 24 05/15/2024 [facility], AD[facility] bacterial vaginosis (bv), tma Positi ve negati ve abnormal Not Available [facility] (Lab) [address] [facility], [place], [address], 05/18/2024 15:47:32 05/15/20 24 05/15/2024 [facility], ADRI laurent species, tma Negati ve negati ve Not Available [facility] (Lab) [address] [facility], [place], [address], 05/18/2024 15:47:32 05/15/20 24 05/15/2024 [facility], ADRI laurent glabrata, tma Negati ve negati ve Not Available [facility] (Lab) [address] [facility], [place], [address], 05/18/2024 15:47:32 05/15/20 24 05/15/2024 [facility], ADRI trichomonas vaginalis, tma Negati ve negati ve Not Available [facility] (Lab) [address] [place], [address], 05/18/2024 15:47:32 05/15/20 24 05/15/2024 [facility], ADRI chlamydia trachomatis, PCR Negati ve negati ve Not Available [facility] (Lab) [address] [place], [address], 05/18/2024 15:47:32 05/15/20 24 05/15/2024 WOMEN '[facility] [...] ded in this panel . Not Available [facility] (Lab) [address], [place], [address], 05/18/2024 15:47:32 Result Notes None recorded. Problems Name Problem SNOMED Code Status Onset Date Resolution Date Notes Provider Name and Address Organization Details Recorded Time Left lower quadrant pain 489341051 Completed 201007/04/2021 Abdomina l pain, left lower quadrant ;Practic e ID: 0001 Linn simms [facility] 11:08:02 Adult health examinat ion Completed 201007/04/2021 Routine general medical examinat ion at a health care facility ;Practic e ID: 0001 Linn simms [facility] 11:07:09 Speciali zed medical examinat ion Completed 201007/04/2021 Routine gynecolo gical examinat ion;Prac edis ID: 0001 Linn simms [facility] 11:08:52 Screenin g for malignan t neoplasm of cervix Completed 201007/04/2021 Screenin g for malignan t neoplasm s of the cervix;R ecorded Elsewher e: No Locat ion: [facility] S ource: [facility] [employer] [facility] jeff: N Practi ce ID: 0001 Syed lable Time: 11:30:00 AM Linn simms [facility] 11:08:48 Family planning surveill ance Completed 201007/04/2021 Surveill ance of other contrace ptive method;R ecorded Elsewher e: No Locat ion: [facility] S ource: [facility] [employer] [facility] jeff: N Practi ce ID: 0001 Syed lable Time: 02:15:00 PM Linn simms [facility] 1 11:07:28 At increase d risk of sexually transmit iliana infectio n [id number] Completed 201107/04/2021 Contact with or exposure to venereal diseases ;Recorde d Elsewher e: No Locat ion: [facility] S ource: [facility] [employer] jeff: N Practi ce ID: 0001 Syed lable Time: 01:00:00 PM Linn simms, [facility] 11:07:16 Threaten ed miscarri age [id number] Completed 201107/04/2021 Threaten ed , antepart um;Recor ded Elsewher e: No Locat ion: [facility] S ource: [facility] [employer] jeff: N Practi ce ID: 0001 Syed lable Time: 11:00:00 AM Linn simms [facility] 11:09:11 Pregnanc y test positive [id number] Completed 201107/04/2021 Pregnanc y examinat ion or test, positive result;R ecorded Elsewher e: No Locat ion: [facility] S ource: [facility] [employer] jeff: N Practi ce ID: 0001 Syed lable Time: 11:00:00 AM Linn simms [facility] 11:08:39 Primigra ailyn [id number] Completed 201107/04/2021 Supervis ion of normal first pregnanc y;Venancioti ce ID: 0001 Linn simms, [facility] 11:08:41 Amenorrh ea [id number] Completed 201107/04/2021 Absence of menstrua tion;Rec orded Elsewher e: No Locat ion: [facility] S ource: [employer] [employer] jeff: N Practi ce ID: 0001 Syed lable Time: 09:30:00 AM Linn simms [facility] 1 11:07:10 anatomy study Completed 201107/04/2021 [facility] ANATMC SURVEY;R ecorded Elsewher e: No [facility] jeff: N Practi ce ID: 0001 Syed lable Time: 01:00:00 PM Linn simms [facility] 11:07:30 Noninfla mmatory disorder of the vagina [id number] Completed 201107/04/2021 Other specifie d noninfla mmatory disorder s of vagina;R ecorded Elsewher e: No [facility] jeff: N Practi ce ID: 0001 Syed lable Time: 02:45:00 PM Linn simms [facility] 1 11:08:09 Labor and delivery complica iliana by heart rate anomaly [id number] Completed 201107/04/2021 ABNORMAL ITY IN HEART RATE OR RHYTHM, ANTEPART UM;Recor ded Elsewher e: No [facility] jeff: N Practi ce ID: 0001 Syed lable Time: 04:00:00 PM Linn smims [facility] 1 11:08:01 Threaten ed prematur e labor - not delivere d [id number] Completed 201207/04/2021 Threaten ed prematur e labor, antepart um;Pract ice ID: 0001 Linn simms, [facility] 11:09:22 Routine antenata l care Completed 201207/04/2021 Supervis ion of other normal pregnanc y;Armando ce ID: 0001 Linn Ben simms [facility] 11:08:45 Delivery normal [id number] Completed 201207/04/2021 Normal delivery ;Practic e ID: 0001 Linn Ben [facility] 11:07:22 Ill-defi marlena intestin al infectio n Completed 201207/04/2021 No Show Fee;Prac edis ID: 0001 Linn Contreras [facility] 11:07:47 Postpart um care Completed 201207/04/2021 Postpart um follow-u p;Practi ce ID: 0001 Linn Contreras [facility] 11:08:33 Insertio n of intraute rine contrace ptive device Completed 201207/04/2021 INSERTIO N OF IUD;Prac edis ID: 0001 Linn Contreras [facility] 11:07:56 Leukocyt osis [id number] Completed 201207/04/2021 LEUKOCYT OSIS NOS;Prac edis ID: 0001 Linn simms [facility] 11:08:05 Vaginiti s and vulvovag initis Completed 201207/04/2021 Vaginiti s and vulvovag initis, unspecif ied;Prac edis ID: 0001 Linn simms [facility] 11:11:31 Irregula r intermen strual bleeding [id number] Completed 201207/04/2021 Metrorrh agia;Pra ctice ID: 0001 Linn Contreras [facility], [facility] 1 11:07:59 Dysfunct ional uterine bleeding Completed 201207/04/2021 Other disorder s of menstrua tion and other abnormal bleeding from female genital tract;Re corded Elsewher e: No [facility] S ource: [facility] [employer] jeff: Angel Craftti ce ID: 0001 Syed lable Time: 01:00:00 PM Linn simms, [facility] 1 11:07:24 Cyst of ovary [id number] Completed 201407/04/2021 Other and unspecif ied ovarian cyst;Rec orded Elsewher e: No Locat ion: [facility] S ource: [facility] jeff: N Armando ce ID: 0001 Syed lable Time: 10:41:35 AM Linn simms, [facility] 1 11:07:20 Pregnanc y detectio n examinat ion Completed 201807/04/2021 Encounte r for pregnanc y test, result positive ;Practic e ID: 0001 Linn Contreras demi, [facility] 11:08:35 Gestatio n period, 8 weeks [id number] Completed 201807/04/2021 8 weeks gestatio n of pregnanc y;Record ed Elsewher e: No Locat ion: [facility] S ource: [facility] [employer] [facility] jeff: Angel Roberts ce ID: 0001 Syed lable Time: 03:45:00 PM Linn simms [facility] 1 11:07:42 Antenata l screenin g Completed 201807/04/2021 Encounte r for antenata l screenin g for nuchal transluc ency;Rec orded Elsewher e: No Locat ion: [facility] S ource: [facility] [employer] jeff: N Venancioti ce ID: 0001 Syed lable Time: 01:00:00 PM Linn simms [facility] 11:07:12 Antenata l screenin g for malforma tion Completed 201807/04/2021 Encounte r for antenata l screenin g for malforma tions;Pr actice ID: 0001 Linn simms, [facility] 11:07:15 Placenta previa [id number] Completed 201807/04/2021 Placenta previa specifie d as w/o hemor, second trimeste r;Practi ce ID: 0001 Linn simms, [facility] 11:08:28 Gestatio n period, 24 weeks [id number] Completed 201807/04/2021 24 weeks gestatio n of pregnanc y;Practi ce ID: 0001 Linnrobby Contreras [facility], [facility] 11:07:32 Rubella screenin g status [id number] Completed 201807/04/2021 Encounte r for antenata l screenin g, unspecif ied;Prac edis ID: 0001 Linn simms, [facility] 11:08:47 Normal pregnanc y in multigra ailyn [id number] 4106 Completed 201807/04/2021 Encounte r for suprvsn of normal pregnanc y, third trimeste r;Practi ce ID: 0001 Linn Contreras [facility], [facility] 11:08:11 Uterine size for dates discrepa ncy Completed 201807/04/2021 Uterine size-merlin e discrepa ncy, third trimeste r;Practi ce ID: 0001 Linn simms, [facility] 11:11:29 Gestatio n period, 36 weeks [id number] Completed 201807/04/2021 36 weeks gestatio n of pregnanc y;Practi ce ID: 0001 Linn simms, [facility] 11:07:34 Hyperten sive disorder Completed 201807/04/2021 Unspecif ied maternal hyperten any, third trimeste r;Practi ce ID: 0001 Linn simms, [facility] 11:07:44 Gestatio n period, 38 weeks [id number] Completed 201807/04/2021 38 weeks gestatio n of pregnanc y;Record ed Elsewher e: No [facility]: [facility] jeff: N Venancioti ce ID: 0001 Syed lable Time: 11:00:00 AM Linn simms, [facility] 11:07:40 Steriliz ation procedur e Completed 201807/04/2021 Encounte r for steriliz ation;Pr actice ID: 0001 Linn simms, [facility] 11:08:54 Single live from singleto n pregnanc y [id number] Completed 201807/04/2021 Single live ;Pr actice ID: 0001 Linn simms, [facility] 11:08:50 Educatio n Completed 201807/04/2021 Encounte r for oth general cnsl and advice on contrace ption;Pr actice ID: 0001 Linn smims, [facility] 11:07:26 Pregnanc y test negative [id number] Completed 201807/04/2021 Encounte r for pregnanc y test, result negative ;Practic e ID: 0001 Linn simms, [facility] 11:08:37 Procedur e on genitour inary system Completed 201907/04/2021 Encounte r for surgical aftcr followin g surgery on the sys;Prac edis ID: 0001 Linn simms, [facility] 1 11:08:43 Postoper ative care Completed 201907/04/2021 Encounte r for surgical aftcr followin g surgery on the sys;Prac edis ID: 0001 Linn simms, [facility] 1 11:08:31 Problem Notes None recorded. Procedures Surgical History Date Name Laterality Status Provider Name and Address Organization Details Recorded Time 1 Date of Last Pap Smear completed Linn Contreras [facility] 07/04/2021 11:13:38 9 Tubal Ligation completed Linn Contreras [facility] 07/04/2021 11:19:45 Imaging Results None recorded. Procedure Notes None recorded. Medical Equipment None Reported. Allergies Allergen ID Allergen Name Allergen Category Reaction Reaction Severity Criticality Documentation Date Start Date Code Code System Note Provider Name and Address Organization Details Recorded Time 85039 amoxicill in medicatio n Not available Not available Not available 08/19/2020 723 RxNorm Comme nt: [facility]; Not Available [facility] 0 14:14:53 46015 Product containin g penicilli n (product) medicatio n rash Not available Not available 08/19/2020 03926 8001 SNOMED React ion: rash; Comme nt: [facility]at [facility]; Not Available [facility] 0 14:14:53 Medications Name Sig Start Date Stop Date Status Note LastModified by Organization Details LastModified Time cyclobenz aprine 10 mg tablet TAKE 1 TABLET BY MOUTH THREE TIMES DAILY NEEDED FOR MUSCLE SPASM active Not Available Not Available No t Available nicotine 14 mg/24 hr daily transderm [...] Prescrib ed Elsewher e: No Locat ion: [facility] odify By: bienvenido epperson DateTime : 08/18/20 12 12:03:42 PM Not Available Not Available Not Available hydrocodo ne 5 mg-acetam inophen 500 mg capsule take 1 capsule by oral route every 6 hours as needed 05/19 completed Prescrib ed Elsewher e: Yes Loca tion: [facility] odify By: natalia donahue DateTime : [...] Prescrib ed Elsewher e: Yes Loca tion: [facility] odify By: bienvenido epperson DateTime : [...] Not Available Not Available No t Available prednison e 20 mg tablet TAKE [...] Prescrib ed Elsewher e: Yes Loca tion: [facility] M odify By: johny Borjas ncounter DateTime : 06/16/20 11 02:36:12 PM Not [...] Elsewher e: No Locat ion: Gabino borjas [facility] odify By: [email or web address] Wynn r DateTime : 06/15/20 19 09:00:32 [...] Elsewher e: No Locat ion: [facility] bor[facility] odify By: nita Wynn r DateTime [...] TAKE 1 TABLET BY MOUTH TWICE DAILY WITH 10 MG TO EQUAL 30 MG active Not Available Not Available No t Available Ortho-Nov um 35 (28) 1 mg-35 mcg tablet take 1 tablet by oral route every day for 28 days 08/28 completed Prescrib ed Elsewher e: No Locat ion: [facility] bor[facility] odify By: johny epperson DateTime : [...] Not Available Not Available No t Available methylpre dnisolone 4 mg tablets in a dose pack FOLLOW PACKAGE DIRECTIO NS active Not Available Not Available No t Available dextroamp hetamine- amphetami ne ER 30 mg 24hr capsule,e xtend release TAKE 1 CAPSULE BY MOUTH EVERY DAY IN THE MORNING UPON AWAKENIN G active Not Available Not Available No t Available Klonopin 1 mg tablet take 1 tablet by oral route 4 times every day 02/16 completed Prescrib ed Elsewher e: Yes Loca tion: [facility] odify By: bienvenido epperson DateTime : [...] Prescrib ed Elsewher e: No [facility] By: nita joiner DateTime : 04/27/20 19 09:03:02 AM Not Available Not Available Not Available azithromy ciro 500 mg tablet take 2 tablet (1000MG) by oral route once 03/04 completed Prescrib ed Elsewher e: No [facility] By: jlpgeorgie lli Enco unter DateTime : 09/24/19 12 10:09:31 AM Not Available Not Available Not Available escitalop virgie 10 mg tablet TAKE 1 TABLET BY MOUTH ONCE DAILY active Not Available Not Available No t Available Flexeril 5 mg tablet take 1 tablet (5MG) by oral route 3 times every day 03/04 completed Prescrib ed Elsewher e: Yes Loca tion: [facility] bor[facility] odify By: jlpgeorgie lli Enco unter DateTime : 06/19/20 11 11:30:00 [...] Elsewher e: Yes Loca tion: [place] borjas [facility] odify By: jlpgeorgie lli Enco unter DateTime : 06/16/20 11 02:36:12 [...] Elsewher e: No Locat ion: [place] borjas [facility] odify By: nita joiner DateTime : 10/16/19 11:48:09 AM Not Available Not Available Not Available Vitafol-O ne 29 mg iron-1 mg-200 mg capsule 03/04 completed Prescrib jesse borjas: Yes Loca tion: [facility] odify By: jlbrittany Jeffreyira trevon DateTime : 06/16/20 02:36:12 PM Not Available Not Available Not Available Daily-Vit e (with folic acid) 400 mcg tablet active Not Available Not Available Not Available Vitals Date Recorded Body height Body mass index (BMI) Body weight Systolic And Diastolic Provider Name and Address Organization Details Last Updated DateTime 08/01/2023 154.94 cm 27.4 kg/m2 76537.89 g 132/79 mm[Hg] Beba Toma [facility] 08/01/2023 14:26:11 Social History Question Answer Notes LastModified by Organizat ion Details LastModified Time Tobacco Smoking Status Never Smoker Marianne simms [facility] 08/01/2023 14:03:42 Are You Blind Or [...] anxious, or unable to sleep at night)? [id number] Information not available 07/12/2021 Family History Relationship Description Onset Age of this Age Resolved Age Notes LastModified by Organization Details LastModified Time Sister Malignant tumor of cervix [email or web address] Not available 07/04 11:18:01 Sister Cyst of ovary [email or web address] Not available 2022 14:03:41 Mother Malignant tumor of cervix [email or web address] Not available 07/04 11:18:01 Mother Cyst of ovary [email or web address] Not available 2022 14:03:41 Maternal Aunt Malignant tumor of cervix [email or web address] Not available 07/04 11:18:01 Maternal Aunt Cyst of ovary Not available 2022 14:03:41 Maternal Grandmother Cyst of ovary [email or web address] Not available 2022 14:03:41 Paternal Grandfather Diabetes mellitus [email or web address] Not available 07/04 11:19:02 Father Disease of liver Not available 2022 14:03:41 Medical History Condition Response Allergies (Food, seasonal, environmental ) N Other Y Breast Cancer N Drug/Latex Allergies/Reactions N Blood Transfusion N Dermatologic Disorders N Lung Disease N Defects or Inherited Disease N Breast Problem N Gestational Diabetes N Hematologic disorders N Anesthesia Complications N History of STI Y Deep Vein Thrombosis N Polycystic ovary syndrome N Anxiety Disorder Y Autoimmune disease N Arthritis N Infertility N Polyps N Acid Reflux (GERD) N History of abnormal pap Y Cancer N Stroke N Varicosities N Neurologic/Epilepsy Y Endometriosis N High Cholesterol N Headaches N Fibromyalgia N Kidney Disease N Heart Problems N Kidney or Bladder Problems N Thyroid Problems N GI Problems N Eating Disorder [...] SNOMED-CT Code Diagnosis ICD10 Code Diagnosis Note [id number] Joshua Grimm MD [place] [address] [address] 08/01/2023 14:00:21 08/01/2023 15:25:36 Gynecologic examination 60559704 Z01.419 Annual gynecologi radha exam performed. Patient [...] na Pap smear- laboratory evaluation - ordered [id number] Joshua Grimm MD [place] [address] [address] 05/15/2024 16:26:53 05/15/2024 16:43:54 Venereal disease screening 777579966 Z11.3 Vaginitis 17360471 N76.0 Health Concerns Section Related Observation LastModified by Organization Detai ls LastModified Time None Recorded Concern Status LastModified by Organization Details LastModified Time None Recorded Advance Directives Directive None Recorded Payers Insurance Date Sequence Insurance Name Policy Number Policy Ayala Covered Member ID Ayala Member ID Guarantor Name 07/08/2023 1 *SELF PAY* Maurice Maier 03/10/2025 1 [facility] (MEDICAID HMO) [id number] Noreen Maier [id number] Noreen Maier Notes Date Note Type Note [...] exercise Joshua Grimm MD [address], [place], [address], [facility] 08/01/2023 15:00:47 OBGyn Episode Ob Episode Information Episode Created Date Number of Fetuses Patient Bloodtype Patient rh Status Prepregnancy Weight lbs Domestic Partner Domestic Partner Phone Father Name Controlled [employer] Brazer Status 07/04/20 21 1 CLOSED Fetus Data First Name Last Name Admitted to NICU Weight (g) Sex Living Outcome Pediatric Complications Fetus ID Race Codes Race Delivery Type 4337.24 6704 M Full Term [id number] Vaginal Delivery Zach Calculation Initial Zach Date [...] Domestic Partner Domestic Partner Phone Father Name Controlled [employer] Brazer Status 07/04/20 21 1 CLOSED Fetus Data First Name Last Name Admitted to NICU Weight (g) Sex Living Outcome Pediatric Complications Fetus ID Race Codes Race Delivery Type 3656.85 8704 F Full Term 88864 Vaginal Delivery Zach Calculation Initial Zach Date [...] Domestic Partner Domestic Partner Phone Father Name Controlled [employer] Brazer Status 07/04/20 21 1 CLOSED Fetus Data First Name Last Name Admitted to NICU Weight (g) Sex Living Outcome Pediatric Complications Fetus ID Race Codes Race Delivery Type , Induced 70808 Zach Calculation Initial Zach Date Initial Exam [...] Domestic Partner Domestic Partner Phone Father Name Controlled [employer] Brazer Status 07/04/20 21 1 CLOSED Fetus Data First Name Last Name Admitted to NICU Weight (g) Sex Living Outcome Pediatric Complications Fetus ID Race Codes Race Delivery Type 2891.64 9 M Full Term 51501 Vaginal Delivery Zach Calculation Initial Zach Date [...]
--- OUTSIDE RECORDS SUMMARY | 2025-03-22 14:26 | XMS_ITS | Clinical Summary ---
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
--- OUTSIDE RECORDS SUMMARY | 2025-03-22 14:26 | XMS_ITS | Continuity of Care Document ---
Author Organization [facility] Address [address] [place] [address] [place] [address] Phone Care Team Providers Care Emergency Spill Response Technician Name Role Phone Kvng Curiel MD Unavailable [...] for anxiety. avoid driving or operate machines [place] 5 mg-325 mg tablet take 1 tablet [...] Copied on Encounter OFFICE/OUTPA TIENT VISIT, EST [facility], [address], [place], [place], [address], [place] tel:[phone] [facility] ADD (chief complaint) toothache (chief complaint) anxiety (chief complaint) Attention deficit disorder of childhood without mention of hyperactivityGenera lized anxiety disorderAtypical face pain 2 4 Moisés Calderon. [address], [place], [place], [address] , [place]. tel:[phone] Referring Provider: Chelsea Vel[address], [place], [place], [address]. tel:[phone] PREV VISIT, EST, AGE 18-39 [facility], [address], [place], [place], [address], [place] tel:[phone] [facility] Physical (chief complaint) Routine Medical ExamRoutine Medical Exam 0 4 Moisés Calderon. [address], [place], [place], [address] , [place]. tel:[phone] Referring Provider: Chelsea Vel[address], [place], [place], [address]. tel:[phone] OFFICE/OUTPA TIENT VISIT, EST [facility], [address], [place], [place], [address], [place] tel:[phone] [facility] toothache (chief complaint) anxiety (chief complaint) back pain (chief complaint) Atypical face painLumbagoGenerali zed anxiety disorderAttention deficit disorder of childhood without mention of hyperactivity 4 Moisés Calderon. [address], [place], [place], [address] , [place]. tel:[phone] Referring Provider: Chelsea Vel[address], [place], [place], [address]. tel:[phone] OFFICE/OUTPA TIENT VISIT, EST [facility], [address], [place], [place], [address], [place] tel:[phone] [facility] anxiety (chief complaint) ADD (chief complaint) back pain (chief complaint) LumbagoAttention deficit disorder of childhood without mention of hyperactivityGenera lized anxiety disorderBipolar disorder, unspecified 4 Moisés Calderon. [address], [place], [place], [address] , [place]. tel:[phone] Referring Provider: Chelsea Velás[address], [place], [place], [address]. tel:[phone] OFFICE/OUTPA TIENT VISIT, [facility] [place], [address], [place], [place], [address], [place] tel:[phone] [facility] anxiety (chief complaint) back pain (chief complaint) LumbagoAttention deficit disorder of childhood without mention of hyperactivityGenera lized anxiety disorderPain in joint involving shoulder region 3 Moisés Calderon. [address], [place], [place], [address] , [place]. [phone] Referring Provider: Chelsea Vel[address], [place], [place], [address]. tel:[phone] OFFICE/OUTPA TIENT VISIT, [facility] [place], [address], [place], [place], [address], [place] tel:[phone] [facility] back pain (chief complaint) anxiety (chief complaint) ADD (chief complaint) LumbagoAttention deficit disorder of childhood without mention of hyperactivityGenera lized anxiety disorder 3 Moisés Calderon. [address], [place], [place], [address] , [place]. [phone] Referring Provider: Chelsea Vel[address], [place], [place], [address]. tel:[phone] PREV VISIT, EST, AGE 18-39 [facility], [address], [place], [place], [address], [place] tel:[phone] [facility] anxiety (chief complaint) back pain (chief complaint) ADD (chief complaint) Routine Medical ExamAttention deficit disorder of childhood without mention of hyperactivityGenera lized anxiety disorderLumbWalter P. [facility]am 3 Moisés Calderon. [address], [place], [place], [address] , [place]. tel:[phone] Referring Provider: Chelsea Vel[address], [place], [place], [address]. tel:[phone] OFFICE/OUTPA TIENT VISIT, [facility] [place], [address], [place], [place], [address], [place] tel:[phone] [facility] anxiety (chief complaint) ADD (chief complaint) back pain (chief complaint) LumbagoAttention deficit disorder of childhood without mention of hyperactivityGenera lized anxiety disorder 3 Moisés Calderon. [address], [place], [place], [address] , [place]. tel:[phone] Referring Provider: Chelsea Vel[address], [place], [place], [address]. tel:[phone] OFFICE/OUTPA TIENT VISIT, [facility] [place], [address], [place], [place], [address], [place] tel:[phone] [facility] back pain (chief complaint) anxiety (chief complaint) ADD (chief complaint) LumbagoAttention deficit disorder of childhood without mention of hyperactivityGenera lized anxiety disorder 3 Moisés Calderon. [address], [place], [place], [address] , [place]. tel:[phone] Referring Provider: Chelsea Vel[address], [place], [place], [address]. tel:[phone] OFFICE/OUTPA TIENT VISIT, [facility] [place], [address], [place], [address], [place] tel:[phone] [facility] back pain (chief complaint) anxiety (chief complaint) ADD (chief complaint) LumbagoAttention deficit disorder of childhood without mention of hyperactivityGenera lized anxiety disorder Kush- 3 Moisés Calderon. [address], [place], [place], [address] , [place]. tel:[phone] Referring Provider: Kvng Curiel, [address], [place], [place], [address]. tel:[phone] OFFICE/OUTPA TIENT VISIT, [facility] [place], [address], [place], [place], [address], [place] tel:[phone] [facility] back pain (chief complaint) anxiety (chief complaint) ADD (chief complaint) Generalized anxiety disorderAttention deficit disorder of childhood without mention of hyperactivityLumbag o 3 Moisés Calderon. [address], [place], [place], [address] , [place]. [phone] Referring Provider: Kvng Curiel [address], [place], [place], [address]. tel:[phone] OFFICE/OUTPA TIENT VISIT, [facility] [place], [address], [place], [place], [address], [place] tel:[phone] [facility] back pain (chief complaint) anxiety (chief complaint) ADD (chief complaint) LumbagoAttention deficit disorder of childhood without mention of hyperactivityGenera lized anxiety disorder Apr-3 3 Moisés Calderon. [address], [place], [place], [address] , [place]. tel:[phone] Referring Provider: Kvng Curiel [address], [place], [place], [address]. tel:[phone] OFFICE/OUTPA TIENT VISIT, [facility] [place], [address], [place], [place], [address], [place] tel:[phone] [facility] back pain (chief complaint) anxiety (chief complaint) ADD (chief complaint) LumbagoAttention deficit disorder of childhood without mention of hyperactivityGenera lized anxiety disorder Apr-0 2-201 3 Moisés Calderon. [address], [facility] [address], [place], [place], [address] , [place]. tel:[phone] Referring Provider: Kvng Curiel, [address], [place], [place], [address]. tel:[phone] OFFICE/OUTPA TIENT VISIT, EST [facility], [address], [place], [place], [address], [place] tel:[phone] [facility] ADD (chief complaint) Attention deficit disorder of childhood without mention of hyperactivity 3 Moisés Calderon. [address], [facility] [address], [place], [place], [address] , [place]. tel:[phone] Referring Provider: Kvng Curiel, [address] [facility] [address], [place], [place], [address]. tel:[phone] Family History Family Member Type Diagnosis Age [...] Mental Status Date Cognitive Assessment Orientation - [place] ed to time, place, person, situation.
--- OUTSIDE RECORDS SUMMARY | 2025-03-22 15:07 | XMS_ITS | Continuity of Care Document ---
Author Organization [facility] Address [address] [place] [address] [place] [address] Phone Care Team Providers Care Metal Pickling Equipment Operator Name Role Phone Kvng Curiel MD Unavailable Unavailable Allergies, Adverse Reactions, Alerts Substance Reaction Status Criticality Penicillins Active No Information Medications Medication Instructions Dosage Effective Dates (start - stop) Status Comments [place] 5 mg-325 mg tablet take 1 tablet [...] Copied on Encounter OFFICE/OUTPA TIENT VISIT, EST [facility], [address], [place], [place], [address], [place] tel:[phone] [facility] ADD (chief complaint) toothache (chief complaint) anxiety (chief complaint) Attention deficit disorder of childhood without mention of hyperactivityGenera lized anxiety disorderAtypical face pain 2 4 Moisés Calderon. [address], [place], [place], [address] , [place]. tel:[phone] Referring Provider: Chelsea Vel[address], [place], [place], [address]. tel:[phone] PREV VISIT, EST, AGE 18-39 [facility], [address], [place], [place], [address], [place] tel:[phone] [facility] Physical (chief complaint) Routine Medical ExamRoutine Medical Exam 0 4 Moisés Calderon. [address], [place], [place], [address] , [place]. tel:[phone] Referring Provider: Chelsea Velás[address], [place], [place], [address]. tel:[phone] OFFICE/OUTPA TIENT VISIT, EST [facility], [address], [place], [place], [address], [place] tel:[phone] [facility] toothache (chief complaint) anxiety (chief complaint) back pain (chief complaint) Atypical face painLumbagoGenerali zed anxiety disorderAttention deficit disorder of childhood without mention of hyperactivity 4 Moisés Calderon. [address], [place], [place], [address] , [place]. tel:[phone] Referring Provider: Chelsea Velás[address], [place], [place], [address]. tel:[phone] OFFICE/OUTPA TIENT VISIT, EST [facility], [address], [place], [place], [address], [place] tel:[phone] [facility] anxiety (chief complaint) ADD (chief complaint) back pain (chief complaint) LumbagoAttention deficit disorder of childhood without mention of hyperactivityGenera lized anxiety disorderBipolar disorder, unspecified 4 Moisés Calderon. [address], [place], [place], [address] , [place]. [phone] Referring Provider: Chelsea Velásquez [address], [place], [place], [address]. tel:[phone] OFFICE/OUTPA TIENT VISIT, [facility], [address], [place], [place], [address], [place] tel:[phone] [facility] anxiety (chief complaint) back pain (chief complaint) LumbagoAttention deficit disorder of childhood without mention of hyperactivityGenera lized anxiety disorderPain in joint involving shoulder region 3 Moisés Calderon. [address], [place], [place], [address] , [place]. [phone] Referring Provider: Chelsea Velásquez [address], [place], [place], [address]. tel:[phone] OFFICE/OUTPA TIENT VISIT, [facility], [address], [place], [place], [address], [place] tel:[phone] [facility] back pain (chief complaint) anxiety (chief complaint) ADD (chief complaint) LumbagoAttention deficit disorder of childhood without mention of hyperactivityGenera lized anxiety disorder 3 Moisés Calderon. [address], [place], [place], [address] , [place]. [phone] Referring Provider: Chelsea Velásquez [address], [place], [place], [address]. tel:[phone] PREV VISIT, EST, AGE 18-39 [facility], [address], [place], [place], [address], [place] tel:[phone] [facility] anxiety (chief complaint) back pain (chief complaint) ADD (chief complaint) Routine Medical ExamAttention deficit disorder of childhood without mention of hyperactivityGenera lized anxiety disorderLumbTrinity Health [facility] Exam 3 Moisés Calderon. [address], [place], [place], [address] , [place]. tel:[phone] Referring Provider: Chelsea Velásquez [address], [place], [place], [address]. tel:[phone] OFFICE/OUTPA TIENT VISIT, [facility], [address], [place], [place], [address], [place] tel:[phone] [facility] anxiety (chief complaint) ADD (chief complaint) back pain (chief complaint) LumbagoAttention deficit disorder of childhood without mention of hyperactivityGenera lized anxiety disorder 3 Moisés Calderon. [address], [place], [place], [address] , [place]. tel:[phone] Referring Provider: Chelsea Velás[address], [place], [place], [address]. tel:[phone] OFFICE/OUTPA TIENT VISIT, [facility], [address], [place], [place], [address], [place] tel:[phone] [facility] back pain (chief complaint) anxiety (chief complaint) ADD (chief complaint) LumbagoAttention deficit disorder of childhood without mention of hyperactivityGenera lized anxiety disorder 3 Moisés Calderon. [address], [place], [place], [address] , [place]. tel:[phone] Referring Provider: Chelsea Velásquez [address], [place], [place], [address]. tel:[phone] OFFICE/OUTPA TIENT VISIT, [facility], [address], [place], [place], [address], [place] tel:[phone] [facility] back pain (chief complaint) anxiety (chief complaint) ADD (chief complaint) LumbagoAttention deficit disorder of childhood without mention of hyperactivityGenera lized anxiety disorder Kush- 3 Moisés Calderon. [address], [place], [place], [address] , [place]. tel:[phone] Referring Provider: Kvng Curiel, [address], [place], [place], [address]. tel:[phone] OFFICE/OUTPA TIENT VISIT, [facility], [address], [place], [place], [address], [place] tel:[phone] [facility] back pain (chief complaint) anxiety (chief complaint) ADD (chief complaint) Generalized anxiety disorderAttention deficit disorder of childhood without mention of hyperactivityLumbag o 3 Moisés Calderon. [address], [place], [place], [address] , [place]. [phone] Referring Provider: Kvng Curiel [address], [place], [place], [address]. tel:[phone] OFFICE/OUTPA TIENT VISIT, [facility], [address], [place], [place], [address], [place] tel:[phone] [facility] back pain (chief complaint) anxiety (chief complaint) ADD (chief complaint) LumbagoAttention deficit disorder of childhood without mention of hyperactivityGenera lized anxiety disorder Apr-3 3 Moisés Calderon. [address], [place], [place], [address] , [place]. tel:[phone] Referring Provider: Kvng Curiel [address], [place], [place], [address]. tel:[phone] OFFICE/OUTPA TIENT VISIT, [facility], [address], [place], [place], [address], [place] tel:[phone] [facility] back pain (chief complaint) anxiety (chief complaint) ADD (chief complaint) LumbagoAttention deficit disorder of childhood without mention of hyperactivityGenera lized anxiety disorder Apr-0 2-201 3 Moisés Calderon. [address] [facility] [address], [place], [place], [address] , [place]. tel:[phone] Referring Provider: Kvng Curiel, [address], [place], [place], [address]. tel:[phone] OFFICE/OUTPA TIENT VISIT, EST [facility], [address], [place], [place], [address], [place] tel:[phone] [facility] ADD (chief complaint) Attention deficit disorder of childhood without mention of hyperactivity 3 Moisés Calderon. [address], [facility] [address], [place], [place], [address] , [place]. tel:[phone] Referring Provider: Kvng Curiel, [address] [facility] [address], [place], [place], [address]. tel:[phone] Family History Family Member Type Diagnosis Age [...] Mental Status Date Cognitive Assessment Orientation - [place] ed to time, place, person, situation.
--- OUTSIDE RECORDS SUMMARY | 2025-03-22 15:07 | XMS_ITS | Clinical Summary ---
Author Organization 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
--- OUTSIDE RECORDS SUMMARY | 2025-03-22 15:07 | XMS_ITS | Clinical Summary ---
Author Organization [facility] Address [address] [place] [address] Phone Care Team Providers Care Poultry Cutter Name Role Phone Provider, None Primary Care [...] 03/08/2025 2:14 PM CDT Emergency [facility] Emergency [address] [place] [address] Keshia Mak PAC Dysuria Discharge Disposition: Discharged [...] Urine HCG () (03/08/2025 1:33 PM CDT) [facility] POC URINE Negative POC URINE CONTROL Prn Physical Therapist Pass Urine 03/08/2025 1:33 PM CDT Keshia William Page PAC POINT OF CARE TESTING (KEL Avalos) Final Result * (ABNORMAL) URINALYSIS REFLEX IF INDICATED BY ABNORMAL RESULTS (03/08/2025 1:30 PM CDT) [facility] SPECIFIC GRAVITY 1.020 1.003 - 1.030 03/08/2025 2:01 PM CDT [facility] URINE PH 6.0 5.0 - 9.0 03/08/2025 2:01 PM CDT [facility] WBC ESTERASE Negative Negative 03/08/2025 2:01 PM CDT [facility] NITRITE Negative Negative 03/08/2025 2:01 PM CDT [facility] PROTEIN, RANDOM URINE 30 mg/dL(A) Negative 03/08/2025 2:01 PM CDT [facility] URINE GLUCOSE, QUAL Negative Negative 03/08/2025 2:01 PM CDT [facility] URINE KETONES 5 mg/dL(A) Negative 03/08/2025 2:01 PM CDT [facility] UROBILINOGEN Normal Normal mg/dL 03/08/2025 2:01 PM CDT [facility] URINE BLOOD Negative Negative nirav/ul 03/08/2025 2:01 PM CDT [facility] URINALYSIS COLOR Yellow 03/08/20 2:01 PM CDT [facility] URINALYSIS CLARITY Slightly Cloudy 03/08/2025 2:01 PM CDT [facility] WBC (Urine) 0-5 Negative, 0-5 /hpf 03/08/2025 2:01 PM CDT [facility] URINE RBC'S 0-2 Negative, 0-2 /hpf 03/08/2025 2:01 PM CDT [facility] EPITHELIAL CELLS Moderate amount /lpf 03/08/2025 2:01 PM CDT [facility] BACTERIA, URINE Few(A) Negative /hpf 03/08/2025 2:01 PM CDT [facility] URINE MUCOUS Few 03/08/2025 2:01 PM CDT [facility] CRYSTALS Calcium oxalate 03/08/2025 2:01 PM CDT [facility] Urine URINE SPECIMEN OBTAINED BY CLEAN CATCH PROCEDURE / Unknown Non-Phlebotomy Collection / Unknown 03/08/2025 1:30 PM CDT 03/08/2025 1:38 PM CDT us Keshia William Page PAC URINE ORDERABLES Final Resul t [facility] [place] [address] from Last 3 Months Insurance MEDICAID [employer] [employer] Care Teams Poultry Cutter Relationship Specialty Start Date End Date Provider, None [place] PCP - General 03/08/25
--- NOTE | 2025-03-22 15:39 | ED.SKABFB ---
HPI - Skin/Abscess/Foreign Bdy General Chief complaint: Skin/Abscess/Foreign Body <JENNY Joseph Last Filed: 03/22/25 18:33> Stated complaint: spider bite <JENNY Joseph Last Filed: 03/22/25 18:33> Time Seen by Provider: 03/22/25 14:53 <JENNY Joseph Last Filed: 03/22/25 18:33> Source: patient <JENNY Joseph Last Filed: 03/22/25 18:33> Mode of arrival: ambulatory <JENNY Joseph Last Filed: 03/22/25 18:33> Limitations: no limitations <JENNY Joseph Last Filed: 03/22/25 18:33> History of Present Illness HPI narrative: Patient is a 39-year-old female who presents the ED with report of a possible bug bite to her right upper back. Patient reports she noticed a raised red area to her right upper back yesterday after waking up. She did not see any bugs or spiders. She complains of pain throughout her right upper back, radiating around her right chest wall and down her right arm. Denies fevers. Denies numbness or weakness. <JENNY Joseph Last Filed: 03/22/25 18:33> Related Data Allergies/Adverse reactions: Allergies Allergy/AdvReac Type Severity Reaction Status Date / Time amoxicillin Allergy Mild RASH Verified 03/22/25 14:40 morphine Allergy Mild Hives Verified 03/22/25 14:40 Penicillins Allergy Mild RASH Verified 03/22/25 14:40 latex Allergy Unknown Verified 03/22/25 14:40 Sulfa (Sulfonamide Allergy Hives Verified 03/22/25 14:40 Antibiotics) <JENNY Joseph Last Filed: 03/22/25 18:33> Review of Systems Review of Systems: All systems reviewed & are unremarkable except as noted in HPI. <JENNY Joseph Last Filed: 03/22/25 18:33> All systems reviewed & are unremarkable except as noted in HPI and below <Kathia Fishman PA-C - Last Filed: 03/22/25 18:33> PMFSH Past Medical History Medical History: Medical History Overweight (BMI 25.0-29.9) Anxiety Seizure disorder remote history. 2 seizures 10 years ago. <Kathia Fishman PA-C - Last Filed: 03/22/25 18:33> Surgical History Surgical History: Surgical History No history of previous surgery <Kathia Fishman PA-C - Last Filed: 03/22/25 18:33> Family History Family History: Family History Other No acute medical problems <Kathia Fishman PA-C - Last Filed: 03/22/25 18:33> Social History Social History: Social History Smoking status: Former smoker Gender identity (if verbalized by the patient): Female <Kathia Fishman PA-C - Last Filed: 03/22/25 18:33> Exam Narrative: GENERAL: Well appearing, well-nourished, non-toxic, in no acute distress. HEAD: Normocephalic, atraumatic. RESPIRATORY: Airway patent, respirations nonlabored. CARDIOVASCULAR: Regular rate and rhythm MUSCULOSKELETAL: Moves all extremities. No gross deformities. SKIN: Warm, dry, normal color. Irregular shaped raised erythematous lesion to R upper back/scapular region with focal TTP. Mildly indurated. No appreciable fluctuance. Streaking erythema around R lateral chest wall into axillary region. No vesicular lesions. No drainage. NEURO: A&O X3. Speech clear. Steady gait. No ataxic movements. PSYCHIATRIC: Appropriate mood and affect. Normal interaction. <Kathia Fishman PA-C - Last Filed: 03/22/25 18:33> Course LEGAL INVESTIGATOR/PA Physician Supervision For this patient encounter, I reviewed the LEGAL INVESTIGATOR or PA documentation, treatment plan, and medical decision making; and I had [id number] time with this patient. <Jose Carlos Helm MD - Last Filed: 03/22/25 22:21> Vital Signs Vital signs: Vital Signs Temperature 97.3 F L 03/22/25 14:23 Pulse Rate 90 03/22/25 14:23 Respiratory Rate 16 03/22/25 14:23 Blood Pressure 122/78 03/22/25 14:23 Pulse Oximetry 99 03/22/25 14:23 Temperature 97.3 F L 03/22/25 14:23 Pulse Rate 88 03/22/25 16:44 Respiratory Rate 17 03/22/25 16:44 Blood Pressure 112/82 03/22/25 16:44 Pulse Oximetry 97 03/22/25 16:44 <Kathia Fishman PA-C - Last Filed: 03/22/25 18:33> Vital Signs Temperature 97.3 F L 03/22/25 14:23 Pulse Rate 90 03/22/25 14:23 Respiratory Rate 16 03/22/25 14:23 Blood Pressure 122/78 03/22/25 14:23 Pulse Oximetry 99 03/22/25 14:23 Temperature 97.3 F L 03/22/25 14:23 Pulse Rate 88 03/22/25 16:44 Respiratory Rate 17 03/22/25 16:44 Blood Pressure 112/82 03/22/25 16:44 Pulse Oximetry 97 03/22/25 16:44 <Jose Carlos Helm MD - Last Filed: 03/22/25 22:21> MDM - Skin/Abscess/Foreign Bdy MDM Narrative Medical decision making narrative: Exam consistent with possible insect bite with superimposed cellulitis versus herpes zoster. Does have a dermatomal appearance. However, no active vesicular lesions at this time. Likely early. Will treat for both. Discussed with patient. Started on Keflex and Valtrex. Advised close follow-up with PCP for further evaluation. Given return precautions. Discharged in stable condition. <Kathia Fishman PA-C - Last Filed: 03/22/25 18:33> Medical Records Attestation: I reviewed the patient's medical records. <Kathia Fishman PA-C - Last Filed: 03/22/25 18:33> Discharge Plan Discharge Clinical Impression: Cellulitis of skin of back Shingles Qualifiers: Herpes zoster complications: without complications Qualified Code(s): B02.9 - Zoster without complications <JENNY Joseph Last Filed: 03/22/25 18:33> Patient Disposition: Home <JENNY Joseph Last Filed: 03/22/25 18:33> Condition: Stable <JENNY Joseph Last Filed: 03/22/25 18:33> Instructions: Antibiotic Form, Shingles (ED), Cellulitis (ED), Insect Bite or Sting (ED) <JENNY Joseph Last Filed: 03/22/25 18:33> Additional Instructions: You are being treated for possible shingles and cellulitis. Take antibiotics as prescribed. Take antivirals as prescribed. Continue Tylenol, ibuprofen as needed for pain. Follow-up with your primary care doctor for further evaluation. Return to ED for new or worsening concerns, persistent fevers, unable to keep down food or drink, severe pain, or any other symptoms of concern. <JENNY Joseph Last Filed: 03/22/25 18:33> Patient Language: Kuwaiti <JENNY Joseph Last Filed: 03/22/25 18:33> Prescriptions: New cephalexin 500 mg capsule 500 mg PO Q6H 7 Days Qty: 28 0RF valacyclovir 1 gram tablet 1,000 mg PO TID 7 Days Qty: 21 0RF No Action prednisone 20 mg tablet 20 mg PO DAILY 5 Days Qty: 5 0RF triamcinolone acetonide 0.1 % ointment 1 applic topical TID 7 Days Qty: 30 0RF Rx Instructions: apply to affected area famotidine [Pepcid] 20 mg tablet 20 mg PO DAILY Qty: 7 0RF meloxicam 15 mg tablet 15 mg PO DAILY Qty: 10 0RF <JENNY Joseph Last Filed: 03/22/25 18:33> Follow-up/Referrals: PHYSICIAN,SOCCER BALL ASSEMBLER [Primary Care Provider] - Osmel Medina MD [Physician] - (PRIMARY CARE) <Kathia Fishman PA-C - Last Filed: 03/22/25 18:33> Stand Alone Forms: Work/School Release IP <Kathia Fishman PA-C - Last Filed: 03/22/25 18:33> Time of Disposition: 15:51 <Kathia Fishman PA-C - Last Filed: 03/22/25 18:33> 15:51 <Jose Carlos Helm MD - Last Filed: 03/22/25 22:21>
[2025-03-22] MEDS: CEPHALEXIN 500 MG CAPSULE PO (16:36)
[2025-03-22] MEDS: IBUPROFEN 600 MG TABLET PO (16:36)
[2025-03-22 16:44] VITALS: BP 112/82; PULSE 88; RESP 17; O2SAT 97
== END 2025-03-22 16:45 | disposition home or self-care (01) ==
PROVIDERS: Emergency Provider Physician Assistant
DX: B02.9 Zoster without complications (principal); F41.9 Anxiety disorder, unspecified
CPT/HCPCS: 99283; A9270

== ENCOUNTER 2025-03-24 01:27 | Emergency (ER) | payer OTHER, SELFPAY ==
[2025-03-24 01:27] VITALS: BP 139/96; PULSE 83; RESP 18; TEMP 36.6; O2SAT 98
--- NOTE | 2025-03-24 01:29 | ED.GENADULT ---
HPI - General Adult General Chief complaint: Skin/Abscess/Foreign Body Stated complaint: SHINGLES Time Seen by Provider: 03/24/25 01:27 History of Present Illness HPI narrative: Isatu is a 39F with a PMH of anxiety that presented to the ED with worsening pain and itching on a wound. She was diagnosed with a spider bite and shingles 2 days ago. However, despite taking valacyclovir and cephalexin it is getting more tender, itchy and the erythema is spreading. No fevers, CP, or systemic symptoms. She has been putting pimple popping bandages over it. 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 Related Data Allergies Allergy/AdvReac Type Severity Reaction Status Date / Time amoxicillin Allergy Mild RASH Verified 03/24/25 01:35 morphine Allergy Mild Hives Verified 03/24/25 01:35 Penicillins Allergy Mild RASH Verified 03/24/25 01:35 latex Allergy Unknown Verified 03/24/25 01:35 Sulfa (Sulfonamide Allergy Hives Verified 03/24/25 01:35 Antibiotics) Review of Systems Review of Systems: All systems reviewed & are unremarkable except as noted in HPI and below PMFSH Past Medical History Medical History Overweight (BMI 25.0-29.9) Anxiety Seizure disorder remote history. 2 seizures 10 years ago. Surgical History Surgical History No history of previous surgery Family History Family History Other No acute medical problems Social History Social History Smoking status: Former smoker Gender identity (if verbalized by the patient): Female Exam Const: General: cooperative, healthy appearing, comfortable, no acute distress, well developed, alert, awake and Physically active Orientation/consciousness: oriented to person, oriented to place and oriented to time HENMT: Head: normal to inspection, normocephalic and atraumatic Ears: hearing grossly normal bilaterally and external ears normal Face/Nose/Sinus: Normal external nose present Eyes: General: appearance normal, both eyes and all related structures Periorbital: periorbital findings normal Sclera: sclerae normal Pupils: Equal, round and reactive pupils present Neck: Neck: normal visual inspection Chest: Chest palpation & inspection: normal inspection of the chest Resp: Effort & Inspection: normal respiratory effort, able to speak in complete sentences and no respiratory distress Cardio: Jugular venous distension: no JVD Skin: General skin exam: normal color and no rashes or lesions noted Other: Upper back had a small bite (1cm) with purulent drainage and surrounding erythema that wrapped around to under the right breast with no vesicles or blisters. Additional erythema was seen under areas where bandages were placed. The erythematous skin was very warm and TTP. Neuro: General: oriented to person, oriented to place and oriented to time Cranial nerves: Yes Equal, round and reactive pupils present Extrem: General: normal to inspection Course Course Emergency Course: Given age, no blisters/vesicles I suspect this is more cellulitis. As she works in a care facility she could have exposure to MRSA. Will switch to clindamycin for MRSA coverage. Finish valacyclovir for possible shingles. Given hydrocodone and gabapentin for pain. Discharge Plan Discharge Clinical Impression: Cellulitis Patient Disposition: Home Condition: Stable Instructions: Cellulitis (ED) Patient Language: Arabic Prescriptions: New clindamycin HCl [Cleocin HCl] 150 mg capsule 450 mg PO TID 5 Days Qty: 45 0RF hydrocodone-acetaminophen 5-325 mg tablet 1 tablet PO Q8H PRN (Reason: pain) Qty: 10 0RF gabapentin 300 mg capsule 300 mg PO BID Qty: 20 0RF No Action prednisone 20 mg tablet 20 mg PO DAILY 5 Days Qty: 5 0RF triamcinolone acetonide 0.1 % ointment 1 applic topical TID 7 Days Qty: 30 0RF Rx Instructions: apply to affected area famotidine [Pepcid] 20 mg tablet 20 mg PO DAILY Qty: 7 0RF meloxicam 15 mg tablet 15 mg PO DAILY Qty: 10 0RF cephalexin 500 mg capsule 500 mg PO Q6H 7 Days Qty: 28 0RF valacyclovir 1 gram tablet 1,000 mg PO TID 7 Days Qty: 21 0RF Follow-up/Referrals: UNKNOWN,DOCTOR [Primary Care Provider] -
--- OUTSIDE RECORDS SUMMARY | 2025-03-24 01:29 | XMS_ITS | Continuity of Care Document ---
Author Organization [facility] Address [address] [place] [address] [place] [address] Phone Care Team Providers Care Staff Forester Name Role Phone Kvng Curiel MD Unavailable [...] for anxiety. avoid driving or operate machines Comerio 5 mg-325 mg tablet take 1 tablet [...] Copied on Encounter OFFICE/OUTPA TIENT VISIT, EST [facility], [address], [place], [place], [id number], [place] tel:[phone] [facility] ADD (chief complaint) toothache (chief complaint) anxiety (chief complaint) Attention deficit disorder of childhood without mention of hyperactivityGenera lized anxiety disorderAtypical face pain 2 4 Moisés [address]on. [address], [place], [place], [id number] , [place]. tel:[phone] Referring Provider: [address], [place], [place], [address]. tel:[phone] PREV VISIT, EST, AGE 18-39 [facility], [address], [place], [place], [address], [place] tel:[phone] [facility] Physical (chief complaint) Routine Medical ExamRoutine Medical Exam 0 4 Moisés Calderon. [address], [place], [place], [address] , [place]. tel:[phone] Referring Provider: Chelsea Vel[address], [place], [place], [address]. tel:[phone] OFFICE/OUTPA TIENT VISIT, EST [facility], [address], [place], [place], [address], [place] tel:[phone] [facility] toothache (chief complaint) anxiety (chief complaint) back pain (chief complaint) Atypical face painLumbagoGenerali zed anxiety disorderAttention deficit disorder of childhood without mention of hyperactivity 4 Moisés Calderon. [address], [place], [place], [address] , [place]. tel:[phone] Referring Provider: Chelsea Vel[address]quez [address], [place], [place], [address]. tel:[phone] OFFICE/OUTPA TIENT VISIT, EST [facility], [address], [place], [place], [id number], [place] tel:[phone] [facility] anxiety (chief complaint) ADD (chief complaint) back pain (chief complaint) LumbagoAttention deficit disorder of childhood without mention of hyperactivityGenera lized anxiety disorderBipolar disorder, unspecified 4 Moisés Calderon. [address], [place], [place], [address] , [place]. tel:[phone] Referring Provider: Chelsea Velásquez [address], [place], [place], [address]. tel:[phone] OFFICE/OUTPA TIENT VISIT, [facility], [address], [place], [place], [id number], [place] tel:[phone] [facility] anxiety (chief complaint) back pain (chief complaint) LumbagoAttention deficit disorder of childhood without mention of hyperactivityGenera lized anxiety disorderPain in joint involving shoulder region 3 Moisés Calderon. [address], [address], [place], [place], [address] , [place]. [phone] Referring Provider: Chelsea Velásquez [address], [place], [place], [address]. tel:[phone] OFFICE/OUTPA TIENT VISIT, [facility], [address], [place], [place], [address], [place] tel:[phone] [facility] back pain (chief complaint) anxiety (chief complaint) ADD (chief complaint) LumbagoAttention deficit disorder of childhood without mention of hyperactivityGenera lized anxiety disorder 3 Moisés Calderon. [address], [address], [place], [place], [address] , [place]. [phone] Referring Provider: Chelsea Velásquez [address], [place], [place], [address]. tel:[phone] PREV VISIT, EST, AGE 18-39 [facility], [address], [place], [place], [address], [place] tel:[phone] [facility] anxiety (chief complaint) back pain (chief complaint) ADD (chief complaint) Routine Medical ExamAttention deficit disorder of childhood without mention of hyperactivityGenera lized anxiety disorderLumbMarlette [facility]am 3 Moisés Calderon. [address], [address], [place], [place], [address] , [place]. tel:[phone] Referring Provider: Chelsea Velásquez [address], [place], [place], [address]. tel:[phone] OFFICE/OUTPA TIENT VISIT, [facility], [address], [place], [place], [address], [place] tel:[phone] [facility] anxiety (chief complaint) ADD (chief complaint) back pain (chief complaint) LumbagoAttention deficit disorder of childhood without mention of hyperactivityGenera lized anxiety disorder 3 Moisés Calderon. [address], [place], [place], [address] , [place]. tel:[phone] Referring Provider: Chelsea Vel[address], [place], [place], [address]. tel:[phone] OFFICE/OUTPA TIENT VISIT, [facility], [address], [place], [place], [address], [place] tel:[phone] [facility] back pain (chief complaint) anxiety (chief complaint) ADD (chief complaint) LumbagoAttention deficit disorder of childhood without mention of hyperactivityGenera lized anxiety disorder 3 Moisés Calderon. [address], [place], [place], [address] , [place]. tel:[phone] Referring Provider: Chelsea Velásquez [address], [place], [place], [address]. tel:[phone] OFFICE/OUTPA TIENT VISIT, [facility], [address], [place], [place], [address], [place] tel:[phone] [facility] back pain (chief complaint) anxiety (chief complaint) ADD (chief complaint) LumbagoAttention deficit disorder of childhood without mention of hyperactivityGenera lized anxiety disorder Kush- 3 Moisés Calderon. [address], [place], [place], [address] , [place]. tel:[phone] Referring Provider: Kvng Curiel, [address], [place], [place], [address]. tel:[phone] OFFICE/OUTPA TIENT VISIT, [facility], [address], [place], [place], [address], [place] tel:[phone] [facility] back pain (chief complaint) anxiety (chief complaint) ADD (chief complaint) Generalized anxiety disorderAttention deficit disorder of childhood without mention of hyperactivityLumbag o 3 Moisés Calderon. [address], [place], [place], [address] , [place]. [phone] Referring Provider: Kvng Curiel [address], [place], [place], [address]. tel:[phone] OFFICE/OUTPA TIENT VISIT, [facility], [address], [place], [place], [address], [place] tel:[phone] [facility] back pain (chief complaint) anxiety (chief complaint) ADD (chief complaint) LumbagoAttention deficit disorder of childhood without mention of hyperactivityGenera lized anxiety disorder Apr-3 3 Moisés Calderon. [address], [place], [place], [address] , [place]. tel:[phone] Referring Provider: Kvng Curiel [address], [place], [place], [address]. tel:[phone] OFFICE/OUTPA TIENT VISIT, [facility], [address], [place], [place], [address], [place] tel:[phone] [facility] back pain (chief complaint) anxiety (chief complaint) ADD (chief complaint) LumbagoAttention deficit disorder of childhood without mention of hyperactivityGenera lized anxiety disorder Apr-0 2-201 3 Moisés [address]on. [address], [facility] [address], [place], [place], [address] , [place]. tel:[phone] Referring Provider: Kvng Curiel, [address], [place], [place], [address]. tel:[phone] OFFICE/OUTPA TIENT VISIT, EST [facility], [address], [place], [place], [address], [place] tel:[phone] [facility] ADD (chief complaint) Attention deficit disorder of childhood without mention of hyperactivity 3 Moisés Calderon. [address], [facility] [address], [place], [place], [address] , [place]. tel:[phone] Referring Provider: Kvng Curiel, [address] [facility] [address], [place], [place], [address]. tel:[phone] Family History Family Member Type Diagnosis Age At Onset Sister Problem (finding) Alive and well Father Problem (finding) Alive and well Mother Problem (finding) Alive and well Payers Payer name Insurance type Covered libertarian ID Authoriza tion(s) No Information Social History [...] Mental Status Date Cognitive Assessment Orientation - Coyote ed to time, place, person, situation.
--- OUTSIDE RECORDS SUMMARY | 2025-03-24 01:29 | XMS_ITS | Clinical Summary ---
Author Organization [facility] Address [facility] [place] [address] Care Team Providers Care Hostess Host Name Role Phone Manisha Sweet MD Primary Care Provider [phone] Allergies Active Allergy Reactions Criticality Noted Date [...] on file Legal Sex Female 4:53 AM [employer] Gender Identity Not on file Sexual Orientation [...] of 3 - 19+ 3-dose series) 2006 HPV Vaccines (1 - 3-dose SCD M series) 2014 COVID-19 Vaccine (4 - 2023-2 5 season) 2024 09/28/2021, 09/24/2020, 09/03/2020 Cervical Cancer Screening Pa p Smear (Age 30 to 64) Every 3 Years 08/01/2026 08/01/2023, 08/01/2023 Cervical Cancer Screening Pa p with HPV Testing (Age 30 to 64) Every 5 Years 08/01/2028 08/01/2023 Cervical Cancer Screening wi th HPV 08/01/2028 Meningococcal B Vaccine Aged Out No l [...] patient's age to complete this topic Insurance [employer] Care Teams Hostess Host Relationship Specialty Start Date End Date Manisha Sweet MD [address] [place] [phone] PCP - General FAMILY PRACTICE 09/02/22
--- OUTSIDE RECORDS SUMMARY | 2025-03-24 01:29 | XMS_ITS | Data Portability ---
Author Organization [facility], [place] Address [address] [place] [address] Care Team Providers Care Trouble Locater Name Role Phone [facility] Primary Care Provider Assessment Encounter Date [...] None recorded. Lab unlisted lab - [facility] swab plus, ADRI 2023 024 [facility] (Lab), [address], [place], [address], 4 15:47:32 Referral None recorded. Procedures None recorded. Surgeries None recorded. Imaging None recorded. Medication Orders Diflucan 150 mg tablet 2023 024 [id number], [address] [place], [address], 4 00:15:51 Patient TargetsNo targets recorded. Patient InstructionsNo instructions recorded. Reason for Referral None Reported. Results Created Date Observation Date Name Description Value Unit Range Abnormal Flag Note LastModifiedBy Organization Detail LastModifiedTime 05/15/20 24 05/15/2024 [facility] bacterial vaginosis (bv), tma Positi ve negati ve abnormal Not Available [facility] (Lab) [address], [place], [address], 05/18/2024 15:47:32 05/15/20 24 05/15/2024 [facility], ADRI laurent species, tma Negati ve negati ve Not Available [facility] (Lab) [address], [place], [address], 05/18/2024 15:47:32 05/15/20 24 05/15/2024 [facility] laurent glabrata, tma Negati ve negati ve Not Available [facility] (Lab) [address], [place], [address], 05/18/2024 15:47:32 05/15/20 24 05/15/2024 [facility] trichomonas vaginalis, tma Negati ve negati ve Not Available [facility] (Lab) [address] [place], [address], 05/18/2024 15:47:32 05/15/20 24 05/15/2024 [facility] AD[facility] chlamydia trachomatis, PCR Negati ve negati ve Not Available [facility] (Lab) [address] [place], [address], 05/18/2024 15:47:32 05/15/20 24 05/15/2024 [facility] [...] ded in this panel . Not Available [facility] (Lab) [address], [place], [address], 05/18/2024 15:47:32 Result Notes None recorded. Problems Name Problem SNOMED Code Status Onset Date Resolution Date Notes Provider Name and Address Organization Details Recorded Time Left lower quadrant pain 949237027 Completed 201007/04/2021 Abdomina l pain, left lower quadrant ;Practic e ID: 0001 Linn simms [facility] 11:08:02 Adult health examinat ion Completed 201007/04/2021 Routine general medical examinat ion at a health care facility ;Practic e ID: 0001 Linn simms [facility] 11:07:09 Speciali zed medical examinat ion Completed 201007/04/2021 Routine gynecolo gical examinat ion;Prac edis ID: 0001 Linn simms [facility] 11:08:52 Screenin g for malignan t neoplasm of cervix Completed 201007/04/2021 Screenin g for malignan t neoplasm s of the cervix;R ecorded Elsewher e: No Locat ion: [facility] S ource: EHR Human Resource Adviser jeff: N Practi ce ID: 0001 Syed lable Time: 11:30:00 AM Linn simms [facility] 11:08:48 Family planning surveill ance Completed 201007/04/2021 Surveill ance of other contrace ptive method;R ecorded Elsewher e: No Locat ion: [facility] S ource: EHR Human Resource Adviser jeff: N Practi ce ID: 0001 Syed lable Time: 02:15:00 PM Linn simms [facility] 1 11:07:28 At increase d risk of sexually transmit iliana infectio n [id number] Completed 201107/04/2021 Contact with or exposure to venereal diseases ;Recorde d Elsewher e: No Locat ion: [facility] S ource: EHR Human Resource Adviser jeff: N Practi ce ID: 0001 Syed lable Time: 01:00:00 PM Linn simms, [facility] 11:07:16 Threaten ed miscarri age [id number] Completed 201107/04/2021 Threaten ed , antepart um;Recor ded Elsewher e: No Locat ion: [facility] S ource: EHR Human Resource Adviser jeff: N Practi ce ID: 0001 Syed lable Time: 11:00:00 AM Linn simms [facility] 11:09:11 Pregnanc y test positive [id number] Completed 201107/04/2021 Pregnanc y examinat ion or test, positive result;R ecorded Elsewher e: No Locat ion: [facility] S ource: EHR Human Resource Adviser jeff: N Practi ce ID: 0001 Syed lable Time: 11:00:00 AM Linn simms [facility] 11:08:39 Primigra ailyn [id number] Completed 201107/04/2021 Supervis ion of normal first pregnanc y;Venancioti ce ID: 0001 Linn simms, [facility] 11:08:41 Amenorrh ea [id number] Completed 201107/04/2021 Absence of menstrua tion;Rec orded Elsewher e: No Locat ion: [facility] S ource: EHR Human Resource Adviser jeff: N Practi ce ID: 0001 Syed lable Time: 09:30:00 AM Linn simms [facility] 1 11:07:10 anatomy study Completed 201107/04/2021 [facility] SURVEY;R ecorded Elsewher e: No [facility] N Practi ce ID: 0001 Syed lable Time: 01:00:00 PM Linn simms [facility] 11:07:30 Noninfla mmatory disorder of the vagina [id number] Completed 201107/04/2021 Other specifie d noninfla mmatory disorder s of vagina;R ecorded Elsewher e: No [facility] jeff: N Practi ce ID: 0001 Syed lable Time: 02:45:00 PM Linn simms [facility] 1 11:08:09 Labor and delivery complica iliana by heart rate anomaly [id number] Completed 201107/04/2021 ABNORMAL ITY IN HEART RATE OR RHYTHM, ANTEPART UM;Recor ded Elsewher e: No [facility] jeff: N Practi ce ID: 0001 Syed lable Time: 04:00:00 PM Linn simms [facility] 1 11:08:01 Threaten ed prematur e labor - not delivere d [id number] Completed 201207/04/2021 Threaten ed prematur e labor, antepart um;Pract ice ID: 0001 Linn simms, [facility] 11:09:22 Routine antenata l care Completed 201207/04/2021 Supervis ion of other normal pregnanc y;Armando ce ID: 0001 Linn Ben simms [facility] 11:08:45 Delivery normal [id number] Completed 201207/04/2021 Normal delivery ;Practic e ID: 0001 Linn Ben [facility] 11:07:22 Ill-defi marlena intestin al infectio n Completed 201207/04/2021 No Show Fee;Prac edis ID: 0001 Linn Contreras [facility] 11:07:47 Postpart um care Completed 201207/04/2021 Postpart um follow-u p;Practi ce ID: 0001 Linn Contreras [facility] 11:08:33 Insertio n of intraute rine contrace ptive device Completed 201207/04/2021 INSERTIO N OF IUD;Prac edis ID: 0001 Linn Contreras [facility] 11:07:56 Leukocyt osis [id number] Completed 201207/04/2021 LEUKOCYT OSIS NOS;Prac edis ID: 0001 Linn simms [facility] 11:08:05 Vaginiti s and vulvovag initis Completed 201207/04/2021 Vaginiti s and vulvovag initis, unspecif ied;Prac edis ID: 0001 Linn simms [facility] 11:11:31 Irregula r intermen strual bleeding [id number] Completed 201207/04/2021 Metrorrh agia;Pra ctice ID: 0001 Linn Contreras [facility], [facility] 1 11:07:59 Dysfunct ional uterine bleeding Completed 201207/04/2021 Other disorder s of menstrua tion and other abnormal bleeding from female genital tract;Re corded Elsewher e: No [facility] S ource: EHR Human Resource Adviser jeff: Angel Craftti ce ID: 0001 Syed lable Time: 01:00:00 PM Linn simms, [facility] 1 11:07:24 Cyst of ovary [id number] Completed 201407/04/2021 Other and unspecif ied ovarian cyst;Rec orded Elsewher e: No Locat ion: [facility] S [facility]ce[facility] je[facility]: N Armando ce ID: 0001 Syed lable Time: 10:41:35 AM Linn simms, [facility] 1 11:07:20 Pregnanc y detectio n examinat ion Completed 201807/04/2021 Encounte r for pregnanc y test, result positive ;Practic e ID: 0001 Linn Contreras demi, [facility] 11:08:35 Gestatio n period, 8 weeks [id number] Completed 201807/04/2021 8 weeks gestatio n of pregnanc y;Record ed Elsewher e: No Locat ion: [facility] S ource: EHR Human Resource Adviser jeff: Angel Roberts ce ID: 0001 Syed lable Time: 03:45:00 PM Linn simms [facility] 1 11:07:42 Antenata l screenin g Completed 201807/04/2021 Encounte r for antenata l screenin g for nuchal transluc ency;Rec orded Elsewher e: No Locat ion: [facility] S ource: EHR Human Resource Adviser jeff: N Venancioti ce ID: 0001 Syed lable Time: 01:00:00 PM Linn simms [facility] 11:07:12 Antenata l screenin g for malforma tion Completed 201807/04/2021 Encounte r for antenata l screenin g for malforma tions;Pr actice ID: 0001 Linn simms, [facility] 11:07:15 Placenta previa [id number] Completed 201807/04/2021 Placenta previa specifie d as w/o hemor, second trimeste r;Practi ce ID: 0001 Linn simms, [facility] 11:08:28 Gestatio n period, 24 weeks [id number] Completed 201807/04/2021 24 weeks gestatio n of pregnanc y;Practi ce ID: 0001 Linnrobby Contreras [facility], [facility] 11:07:32 Rubella screenin g status [id number] Completed 201807/04/2021 Encounte r for antenata l screenin g, unspecif ied;Prac edis ID: 0001 Linn simms, [facility] 11:08:47 Normal pregnanc y in multigra ailyn [id number] 4106 Completed 201807/04/2021 Encounte r for suprvsn of normal pregnanc y, third trimeste r;Practi ce ID: 0001 Linn Contreras [facility], [facility] 11:08:11 Uterine size for dates discrepa ncy Completed 201807/04/2021 Uterine size-merlin e discrepa ncy, third trimeste r;Practi ce ID: 0001 Linn simms, [facility] 11:11:29 Gestatio n period, 36 weeks [id number] Completed 201807/04/2021 36 weeks gestatio n of pregnanc y;Practi ce ID: 0001 Linn simms, [facility] 11:07:34 Hyperten sive disorder Completed 201807/04/2021 Unspecif ied maternal hyperten any, third trimeste r;Practi ce ID: 0001 Linn simms, [facility] 11:07:44 Gestatio n period, 38 weeks [id number] Completed 201807/04/2021 38 weeks gestatio n of pregnanc y;Record ed Elsewher e: No [facility] S our[facility]: EHR Human Resource Adviser jfef: N Venancioti ce ID: 0001 Syed lable Time: 11:00:00 AM Linn simms, [facility] 11:07:40 Steriliz ation procedur e Completed 201807/04/2021 Encounte r for steriliz ation;Pr actice ID: 0001 Linn simms, [facility] 11:08:54 Single live from singleto n pregnanc y [id number] Completed 201807/04/2021 Single live ;Pr actice ID: 0001 Linn simms, [facility] 11:08:50 Educatio n Completed 201807/04/2021 Encounte r for oth general cnsl and advice on contrace ption;Pr actice ID: 0001 Linn simms, [facility] 11:07:26 Pregnanc y test negative [id number] Completed 201807/04/2021 Encounte r for pregnanc y test, result negative ;Practic e ID: 0001 Linn simms, [facility] 11:08:37 Procedur e on genitour inary system Completed 201907/04/2021 Encounte r for surgical aftcr followin g surgery on the sys;Prac edis ID: 0001 Linn simms, [facility] 1 11:08:43 Postoper ative care Completed 201907/04/2021 Encounte r for surgical aftcr followin g surgery on the sys;Prac edis ID: 0001 Linn simms, [facility] 1 11:08:31 Problem Notes None recorded. Procedures Surgical History Date Name Laterality Status Provider Name and Address Organization Details Recorded Time 1 Date of Last Pap Smear completed Linn Contreras [facility] 07/04/2021 11:13:38 9 Tubal Ligation completed Linn Contreras [facility] 07/04/2021 11:19:45 Imaging Results None recorded. Procedure Notes None recorded. Medical Equipment None Reported. Allergies Allergen ID Allergen Name Allergen Category Reaction Reaction Severity Criticality Documentation Date Start Date Code Code System Note Provider Name and Address Organization Details Recorded Time 87192 amoxicill in medicatio n Not available Not available Not available 08/19/2020 723 RxNorm Comme nt: [facility]; [facility] Available [facility] 14:14:53 39979 Product containin g penicilli n (product) medicatio n rash Not available Not available 08/19/2020 79305 8001 SNOMED React ion: rash; Comme nt: [facility]at [facility]; [facility] Available [facility] 0 14:14:53 Medications Name Sig Start [...] Prescrib ed Elsewher e: No Locat ion: [facility] odify By: bienvenido epperson DateTime : 08/18/20 12 12:03:42 PM Not Available Not Available Not Available hydrocodo ne 5 mg-acetam inophen 500 mg capsule take 1 capsule by oral route every 6 hours as needed 05/19 completed Prescrib ed Elsewher e: Yes Loca tion: [facility] odify By: natalia donahue DateTime [...] Prescrib ed Elsewher e: Yes Loca tion: [facility] odify By: bienvenido epperson DateTime [...] Prescrib ed Elsewher e: Yes Loca tion: [facility] M odify By: johny Borjas ncounter DateTime [...] Elsewher e: No Locat ion: [facility] odify By: [email or web address] Wynn r DateTime : [...] Elsewher e: No Locat ion: [facility] odify By: nita Wynn r DateTime : [...] Elsewher e: No Locat ion: [facility] odify By: johny epperson DateTime : 08/01/20 [...] Prescrib ed Elsewher e: Yes Loca tion: [facility] odify By: bienvenido epperson DateTime [...] Prescrib ed Elsewher e: No [facility] By: nita joiner DateTime : 04/27/20 19 09:03:02 AM Not Available Not Available Not Available azithromy ciro 500 mg tablet take 2 tablet (1000MG) by oral route once 03/04 completed Prescrib ed Elsewher e: No [facility] By: jlpgeorgie lli Enco unter DateTime [...] Elsewher e: Yes Loca tion: [facility] odify By: jlpgeorgie lli Enco unter DateTime [...] Elsewher e: Yes Loca tion: [facility] odify By: jlpgeorgie lli Enco unter DateTime [...] Elsewher e: No Locat ion: [facility] odify By: nita joiner DateTime : 10/16/19 11:48:09 AM Not Available Not Available Not Available Vitafol-O ne 29 mg iron-1 mg-200 mg capsule 03/04 completed Prescrib jesse borjas: Yes Loca tion: [facility] odify By: jlbrittany Jeffreyira trevon DateTime : 06/16/20 02:36:12 PM Not Available Not Available Not Available Daily-Vit e (with folic acid) 400 mcg tablet active Not Available Not Available Not Available Vitals Date Recorded Body height Body mass index (BMI) Body weight Systolic And Diastolic Provider Name and Address Organization Details Last Updated DateTime 08/01/2023 154.94 cm 27.4 kg/m2 69717.89 g 132/79 mm[Hg] Beba Toma [facility] 08/01/2023 14:26:11 Social History Question Answer Notes LastModified by Organizat ion Details LastModified Time Tobacco Smoking Status Never Smoker Marianne simms [facility] 08/01/2023 14:03:42 Are You Blind Or [...] anxious, or unable to sleep at night)? [id number] Information not available 07/12/2021 Family History Relationship Description Onset Age of this Age Resolved Age Notes LastModified by Organization Details LastModified Time Sister Malignant tumor of cervix [email or web address] Not available 07/04 11:18:01 Sister Cyst of ovary [email or web address] Not available 2022 14:03:41 Mother Malignant tumor of cervix [email or web address] Not available 07/04 11:18:01 Mother Cyst of ovary [email or web address] Not available 2022 14:03:41 Maternal Aunt Malignant tumor of cervix [email or web address] Not available 07/04 11:18:01 Maternal Aunt Cyst of ovary [email or web address] Not available 2022 14:03:41 Maternal Grandmother Cyst of ovary Not available 2022 14:03:41 Paternal Grandfather Diabetes mellitus [email or web address] Not available 07/04 11:19:02 Father Disease of liver [email or web address] Not available 2022 14:03:41 Medical History Condition [...] SNOMED-CT Code Diagnosis ICD10 Code Diagnosis Note [id number] Joshua Grimm MD [place] [address] [address] 08/01/2023 14:00:21 08/01/2023 15:25:36 Gynecologic examination 74867020 Z01.419 Annual gynecologi radha exam performed. Patient [...] na Pap smear- laboratory evaluation - ordered [id number] Joshua Grimm MD [place] [address] [address] 05/15/2024 16:26:53 05/15/2024 16:43:54 Venereal disease screening 577135634 Z11.3 Vaginitis 11350215 N76.0 Health Concerns Section Related Observation LastModified by Organization Detai ls LastModified Time None Recorded Concern Status LastModified by Organization Details LastModified Time None Recorded Advance Directives Directive None Recorded Payers Insurance Date Sequence Insurance Name Policy Number Policy Ayala Covered Member ID Ayala Member ID Guarantor Name 07/08/2023 1 *SELF PAY* Maurice Maier 03/10/2025 1 [facility] (MEDICAID HMO) [id number] Noreen Maier [id number] Noreen Maier Notes Date Note Type Note [...] exercise Joshua Grimm MD [address], [place], [address], [facility] 08/01/2023 15:00:47 OBGyn Episode Ob Episode Information Episode Created Date Number of Fetuses Patient Bloodtype Patient rh Status Prepregnancy Weight lbs Domestic Partner Domestic Partner Phone Father Name Docket Specialist Status 07/04/20 21 1 CLOSED Fetus Data First Name Last Name Admitted to NICU Weight (g) Sex Living Outcome Pediatric Complications Fetus ID Race Codes Race Delivery Type 4337.24 6704 M Full Term 27099 Vaginal Delivery Zach Calculation Initial Zach Date [...] Domestic Partner Domestic Partner Phone Father Name Docket Specialist Status 07/04/20 21 1 CLOSED Fetus Data First Name Last Name Admitted to NICU Weight (g) Sex Living Outcome Pediatric Complications Fetus ID Race Codes Race Delivery Type 3656.85 8704 F Full Term 40826 Vaginal Delivery Zach Calculation Initial Zach Date [...] Domestic Partner Domestic Partner Phone Father Name Docket Specialist Status 07/04/20 21 1 CLOSED Fetus Data First Name Last Name Admitted to NICU Weight (g) Sex Living Outcome Pediatric Complications Fetus ID Race Codes Race Delivery Type , Induced 38788 Zach Calculation Initial Zach Date Initial Exam [...] Domestic Partner Domestic Partner Phone Father Name Docket Specialist Status 07/04/20 21 1 CLOSED Fetus Data First Name Last Name Admitted to NICU Weight (g) Sex Living Outcome Pediatric Complications Fetus ID Race Codes Race Delivery Type 2891.64 9 M Full Term 83792 Vaginal Delivery Zach Calculation Initial Zach Date [...]
--- OUTSIDE RECORDS SUMMARY | 2025-03-24 01:29 | XMS_ITS | Patient Health Record ---
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
--- OUTSIDE RECORDS SUMMARY | 2025-03-24 01:29 | XMS_ITS | Clinical Summary ---
Author Organization [facility] Address [address] [place] [address] Phone Care Team Providers Care Patient Sitter Name Role Phone Provider, None Primary Care [...] 03/08/2025 2:14 PM CDT Emergency [facility] Emergency [address] [place] [address] Keshia Mak PAC Dysuria Discharge Disposition: Discharged [...] Urine HCG () (03/08/2025 1:33 PM CDT) [facility] POC URINE Negative POC URINE CONTROL Digital Account Coordinator Pass Urine 03/08/2025 1:33 PM CDT Keshia William Page PAC POINT OF CARE TESTING (KEL Avalos) Final Result * (ABNORMAL) URINALYSIS REFLEX IF INDICATED BY ABNORMAL RESULTS (03/08/2025 1:30 PM CDT) [facility] SPECIFIC GRAVITY 1.020 1.003 - 1.030 03/08/2025 2:01 PM CDT [facility] URINE PH 6.0 5.0 - 9.0 03/08/2025 2:01 PM CDT [facility] WBC ESTERASE Negative Negative 03/08/2025 2:01 PM CDT [facility] NITRITE Negative Negative 03/08/2025 2:01 PM CDT [facility] PROTEIN, RANDOM URINE 30 mg/dL(A) Negative 03/08/2025 2:01 PM CDT [facility] URINE GLUCOSE, QUAL Negative Negative 03/08/2025 2:01 PM CDT [facility] URINE KETONES 5 mg/dL(A) Negative 03/08/2025 2:01 PM CDT [facility] UROBILINOGEN Normal Normal mg/dL 03/08/2025 2:01 PM CDT [facility] URINE BLOOD Negative Negative nirav/ul 03/08/2025 2:01 PM CDT [facility] URINALYSIS COLOR Yellow 03/08/20 2:01 PM CDT [facility] URINALYSIS CLARITY Slightly Cloudy 03/08/2025 2:01 PM CDT [facility] WBC (Urine) 0-5 Negative, 0-5 /hpf 03/08/2025 2:01 PM CDT [facility] URINE RBC'S 0-2 Negative, 0-2 /hpf 03/08/2025 2:01 PM CDT [facility] EPITHELIAL CELLS Moderate amount /lpf 03/08/2025 2:01 PM CDT [facility] BACTERIA, URINE Few(A) Negative /hpf 03/08/2025 2:01 PM CDT [facility] URINE MUCOUS Few 03/08/2025 2:01 PM CDT [facility] CRYSTALS Calcium oxalate 03/08/2025 2:01 PM CDT [facility] Urine URINE SPECIMEN OBTAINED BY CLEAN CATCH PROCEDURE / Unknown Non-Phlebotomy Collection / Unknown 03/08/2025 1:30 PM CDT 03/08/2025 1:38 PM CDT us Keshia William Page PAC URINE ORDERABLES Final Resul t [facility] [place] [address] from Last 3 Months Insurance MEDICAID [id number] Care Teams Patient Sitter Relationship Specialty Start Date End Date Provider, None [place] PCP - General 03/08/25
[2025-03-24] MEDS: CLINDAMYCIN HCL 150 MG CAP 450 MG PO (01:43)
[2025-03-24] MEDS: GABAPENTIN 300 MG CAPSULE PO (01:43)
[2025-03-24] MEDS: HYDROcodone/acetaminophen (*CRX) 5-325 MG TABLET 1 TAB PO (01:43)
--- OUTSIDE RECORDS SUMMARY | 2025-03-24 01:51 | XMS_ITS | Clinical Summary ---
Author Organization [facility] Address [address] [place] [address] Phone Care Team Providers Care Atomic Spectroscopist Name Role Phone Provider, None Primary Care [...] 03/08/2025 2:14 PM CDT Emergency [facility] Emergency [address] [place] [address] Keshia Mak PAC Dysuria Discharge Disposition: Discharged [...] Urine HCG () (03/08/2025 1:33 PM CDT) [facility] POC URINE Negative POC URINE CONTROL Business Office Assistant Pass Urine 03/08/2025 1:33 PM CDT Keshia William Page PAC POINT OF CARE TESTING (KEL Avalos) Final Result * (ABNORMAL) URINALYSIS REFLEX IF INDICATED BY ABNORMAL RESULTS (03/08/2025 1:30 PM CDT) [facility] SPECIFIC GRAVITY 1.020 1.003 - 1.030 03/08/2025 2:01 PM CDT [facility] URINE PH 6.0 5.0 - 9.0 03/08/2025 2:01 PM CDT [facility] WBC ESTERASE Negative Negative 03/08/2025 2:01 PM CDT [facility] NITRITE Negative Negative 03/08/2025 2:01 PM CDT [facility] PROTEIN, RANDOM URINE 30 mg/dL(A) Negative 03/08/2025 2:01 PM CDT [facility] URINE GLUCOSE, QUAL Negative Negative 03/08/2025 2:01 PM CDT [facility] URINE KETONES 5 mg/dL(A) Negative 03/08/2025 2:01 PM CDT [facility] UROBILINOGEN Normal Normal mg/dL 03/08/2025 2:01 PM CDT [facility] URINE BLOOD Negative Negative nirav/ul 03/08/2025 2:01 PM CDT [facility] URINALYSIS COLOR Yellow 03/08/20 2:01 PM CDT [facility] URINALYSIS CLARITY Slightly Cloudy 03/08/2025 2:01 PM CDT [facility] WBC (Urine) 0-5 Negative, 0-5 /hpf 03/08/2025 2:01 PM CDT [facility] URINE RBC'S 0-2 Negative, 0-2 /hpf 03/08/2025 2:01 PM CDT [facility] EPITHELIAL CELLS Moderate amount /lpf 03/08/2025 2:01 PM CDT [facility] BACTERIA, URINE Few(A) Negative /hpf 03/08/2025 2:01 PM CDT [facility] URINE MUCOUS Few 03/08/2025 2:01 PM CDT [facility] CRYSTALS Calcium oxalate 03/08/2025 2:01 PM CDT [facility] Urine URINE SPECIMEN OBTAINED BY CLEAN CATCH PROCEDURE / Unknown Non-Phlebotomy Collection / Unknown 03/08/2025 1:30 PM CDT 03/08/2025 1:38 PM CDT us Keshia William Page PAC URINE ORDERABLES Final Resul t [facility] [place] [address] from Last 3 Months Insurance MEDICAID [employer] [employer] Care Teams Atomic Spectroscopist Relationship Specialty Start Date End Date Provider, None [place] PCP - General 03/08/25
--- OUTSIDE RECORDS SUMMARY | 2025-03-24 01:51 | XMS_ITS | Clinical Summary ---
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
--- OUTSIDE RECORDS SUMMARY | 2025-03-24 01:51 | XMS_ITS | Continuity of Care Document ---
Author Organization [facility] Address [address] [place] [address] [place] [address] Phone Care Team Providers Care Artificial Cherry Maker Name Role Phone Kvng Curiel MD Unavailable Unavailable Allergies, Adverse Reactions, Alerts Substance Reaction Status Criticality Penicillins Active No Information Medications Medication Instructions Dosage Effective Dates (start - stop) Status Comments [place] 5 mg-325 mg tablet take 1 tablet [...] Copied on Encounter OFFICE/OUTPA TIENT VISIT, EST [facility], [address], [place], [place], [address], [place] tel:[phone] [facility] ADD (chief complaint) toothache (chief complaint) anxiety (chief complaint) Attention deficit disorder of childhood without mention of hyperactivityGenera lized anxiety disorderAtypical face pain 2 4 Moisés Calderon. [address], [place], [place], [address] , [place]. tel:[phone] Referring Provider: [address], [place], [place], [address]. tel:[phone] PREV VISIT, EST, AGE 18-39 [facility], [address], [place], [place], [address], [place] tel:[phone] [facility] Physical (chief complaint) Routine Medical ExamRoutine Medical Exam 0 4 Moisés Calderon. [address], [place], [place], [address] , [place]. tel:[phone] Referring Provider: Chelsea Velásquez [address], [place], [place], [address]. tel:[phone] OFFICE/OUTPA TIENT VISIT, EST [facility], [address], [place], [place], [address], [place] tel:[phone] [facility] toothache (chief complaint) anxiety (chief complaint) back pain (chief complaint) Atypical face painLumbagoGenerali zed anxiety disorderAttention deficit disorder of childhood without mention of hyperactivity 4 Moisés Calderon. [address], [place], [place], [address] , [place]. tel:[phone] Referring Provider: Chelsea Velásquez [address], [place], [place], [address]. tel:[phone] OFFICE/OUTPA TIENT VISIT, EST [facility], [address], [place], [place], [address], [place] tel:[phone] [facility] anxiety (chief complaint) ADD (chief complaint) back pain (chief complaint) LumbagoAttention deficit disorder of childhood without mention of hyperactivityGenera lized anxiety disorderBipolar disorder, unspecified 4 Moisés [address]on. [address], [place], [place], [address] , [place]. tel:[phone] Referring Provider: Chelsea Velásquez [address], [place], [place], [address]. tel:[phone] OFFICE/OUTPA TIENT VISIT, [facility], [address], [place], [place], [address], [place] tel:[phone] [facility] anxiety (chief complaint) back pain (chief complaint) LumbagoAttention deficit disorder of childhood without mention of hyperactivityGenera lized anxiety disorderPain in joint involving shoulder region 3 Moisés Calderon. [address], [place], [place], [address] , [place]. [phone] Referring Provider: Chelsea Velásquez [address], [place], [place], [address]. tel:[phone] OFFICE/OUTPA TIENT VISIT, [facility], [address], [place], [place], [address], [place] tel:[phone] [facility] back pain (chief complaint) anxiety (chief complaint) ADD (chief complaint) LumbagoAttention deficit disorder of childhood without mention of hyperactivityGenera lized anxiety disorder 3 Moisés Calderon. [address], [place], [place], [address] , [place]. [phone] Referring Provider: Chelsea Velásquez [address], [place], [place], [address]. tel:[phone] PREV VISIT, EST, AGE 18-39 [facility], [address], [place], [place], [address], [place] tel:[phone] [facility] anxiety (chief complaint) back pain (chief complaint) ADD (chief complaint) Routine Medical ExamAttention deficit disorder of childhood without mention of hyperactivityGenera lized anxiety disorderLumbSturg[facility] Exam 3 Moisés Calderon. [address], [place], [place], [address] , [place]. tel:[phone] Referring Provider: Chelsea Velásquez [address], [place], [place], [address]. tel:[phone] OFFICE/OUTPA TIENT VISIT, [facility], [address], [place], [place], [address], [place] tel:[phone] [facility] anxiety (chief complaint) ADD (chief complaint) back pain (chief complaint) LumbagoAttention deficit disorder of childhood without mention of hyperactivityGenera lized anxiety disorder 3 Moisés Calderon. [address], [place], [place], [address] , [place]. tel:[phone] Referring Provider: Chelsea Vel[address], [place], [place], [address]. tel:[phone] OFFICE/OUTPA TIENT VISIT, [facility], [address], [place], [place], [address], [place] tel:[phone] [facility] back pain (chief complaint) anxiety (chief complaint) ADD (chief complaint) LumbagoAttention deficit disorder of childhood without mention of hyperactivityGenera lized anxiety disorder 3 Moisés Calderon. [address], [place], [place], [address] , [place]. tel:[phone] Referring Provider: Chelsea Velásquez [address], [place], [place], [address]. tel:[phone] OFFICE/OUTPA TIENT VISIT, [facility], [address], [place], [place], [address], [place] tel:[phone] [facility] back pain (chief complaint) anxiety (chief complaint) ADD (chief complaint) LumbagoAttention deficit disorder of childhood without mention of hyperactivityGenera lized anxiety disorder Kush- 3 Moisés Calderon. [address], [place], [place], [address] , [place]. tel:[phone] Referring Provider: Kvng Curiel, [address], [place], [place], [address]. tel:[phone] OFFICE/OUTPA TIENT VISIT, [facility], [address], [place], [place], [address], [place] tel:[phone] [facility] back pain (chief complaint) anxiety (chief complaint) ADD (chief complaint) Generalized anxiety disorderAttention deficit disorder of childhood without mention of hyperactivityLumbag o 3 Moisés Calderon. [address], [place], [place], [address] , [place]. [phone] Referring Provider: Kvng Curiel [address], [place], [place], [address]. tel:[phone] OFFICE/OUTPA TIENT VISIT, [facility], [address], [place], [place], [address], [place] tel:[phone] [facility] back pain (chief complaint) anxiety (chief complaint) ADD (chief complaint) LumbagoAttention deficit disorder of childhood without mention of hyperactivityGenera lized anxiety disorder Apr-3 3 Moisés Calderon. [address], [place], [place], [address] , [place]. tel:[phone] Referring Provider: Kvng Curiel [address], [place], [place], [address]. tel:[phone] OFFICE/OUTPA TIENT VISIT, [facility], [address], [place], [place], [address], [place] tel:[phone] [facility] back pain (chief complaint) anxiety (chief complaint) ADD (chief complaint) LumbagoAttention deficit disorder of childhood without mention of hyperactivityGenera lized anxiety disorder Apr-0 2-201 3 Moisés [address]on[address], [facility] [address], [place], [place], [address] , [place]. tel:[phone] Referring Provider: Kvng Curiel, [address], [place], [place], [address]. tel:[phone] OFFICE/OUTPA TIENT VISIT, EST [facility], [address], [place], [place], [address], [place] tel:[phone] [facility] ADD (chief complaint) Attention deficit disorder of childhood without mention of hyperactivity 3 Moisés Calderon. [address], [facility] [address], [place], [place], [address] , [place]. tel:[phone] Referring Provider: Kvng Curiel, [address] [facility] [address], [place], [place], [address]. tel:[phone] Family History Family Member Type Diagnosis Age [...] Mental Status Date Cognitive Assessment Orientation - Mason ed to time, place, person, situation.
--- NOTE | 2025-03-24 02:01 | PC.NURSE ---
DR GUY AT THE BEDSIDE
== END 2025-03-24 02:04 | disposition home or self-care (01) ==
LOC: CHSED 01:49
PROVIDERS: Emergency Provider Family Medicine
DX: L03.312 Cellulitis of back [any part except buttock and flank] (principal)
CPT/HCPCS: 99283; A9270

== ENCOUNTER 2025-04-03 11:18 | Emergency (ER) | payer OTHER, SELFPAY ==
--- OUTSIDE RECORDS SUMMARY | 2025-04-03 11:21 | XMS_ITS | Patient Health Record ---
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
--- OUTSIDE RECORDS SUMMARY | 2025-04-03 11:21 | XMS_ITS | Continuity of Care Document ---
Author Organization [facility] Address [address] [place] [address] [place] [address] Phone Care Team Providers Care Raw Stock Drier Tender Name Role Phone Kvng Curiel MD Unavailable [...] for anxiety. avoid driving or operate machines Wilmore 5 mg-325 mg tablet take 1 tablet [...] Copied on Encounter OFFICE/OUTPA TIENT VISIT, EST [facility], [address], [place], [place], [address], [place] tel:[phone] [facility] ADD (chief complaint) toothache (chief complaint) anxiety (chief complaint) Attention deficit disorder of childhood without mention of hyperactivityGenera lized anxiety disorderAtypical face pain 2 4 Moisés Calderon. [address], [place], [place], [address] , [place]. tel:[phone] Referring Provider: Chelsea Vel[address], [place], [place], [address]. tel:[phone] PREV VISIT, EST, AGE 18-39 [facility], [address], [place], [place], [address], [place] tel:[phone] [facility] Physical (chief complaint) Routine Medical ExamRoutine Medical Exam 0 4 Moisés Calderon. [address], [place], [place], [address] , [place]. tel:[phone] Referring Provider: Chelsea Velásquez [address], [place], [place], [address]. tel:[phone] OFFICE/OUTPA TIENT VISIT, EST [facility], [address], [place], [place], [address], [place] tel:[phone] [facility] toothache (chief complaint) anxiety (chief complaint) back pain (chief complaint) Atypical face painLumbagoGenerali zed anxiety disorderAttention deficit disorder of childhood without mention of hyperactivity 4 Moisés Calderon. [address], [place], [place], [address] , [place]. tel:[phone] Referring Provider: Chelsea Velásquez [address], [place], [place], [address]. tel:[phone] OFFICE/OUTPA TIENT VISIT, EST [facility], [address], [place], [place], [address], [place] tel:[phone] [facility] anxiety (chief complaint) ADD (chief complaint) back pain (chief complaint) LumbagoAttention deficit disorder of childhood without mention of hyperactivityGenera lized anxiety disorderBipolar disorder, unspecified 4 Moisés Calderon. [address], [place], [place], [address] , [place]. tel:[phone] Referring Provider: Chelsea Velásquez [address], [place], [place], [address]. tel:[phone] OFFICE/OUTPA TIENT VISIT, [facility], [address], [place], [place], [address], [place] tel:[phone] [facility] anxiety (chief complaint) back pain (chief complaint) LumbagoAttention deficit disorder of childhood without mention of hyperactivityGenera lized anxiety disorderPain in joint involving shoulder region 3 Moisés Calderon. [address], [place], [place], [address] , [place]. [phone] Referring Provider: Chelsea Velásquez [address], [place], [place], [address]. tel:[phone] OFFICE/OUTPA TIENT VISIT, [facility], [address], [place], [place], [address], [place] tel:[phone] [facility] back pain (chief complaint) anxiety (chief complaint) ADD (chief complaint) LumbagoAttention deficit disorder of childhood without mention of hyperactivityGenera lized anxiety disorder 3 Moisés Calderon. [address], [place], [place], [address] , [place]. [phone] Referring Provider: Chelsea Velásquez [address], [place], [place], [address]. tel:[phone] PREV VISIT, EST, AGE 18-39 [facility], [address], [place], [place], [address], [place] tel:[phone] [facility] anxiety (chief complaint) back pain (chief complaint) ADD (chief complaint) Routine Medical ExamAttention deficit disorder of childhood without mention of hyperactivityGenera lized anxiety disorderLumbTrinity Health [facility] Exam 3 Moisés Calderon. [address], [place], [place], [address] , [place]. tel:[phone] Referring Provider: Chelsea Velásquez [address], [place], [place], [address]. tel:[phone] OFFICE/OUTPA TIENT VISIT, [facility], [address], [place], [place], [address], [place] tel:[phone] [facility] anxiety (chief complaint) ADD (chief complaint) back pain (chief complaint) LumbagoAttention deficit disorder of childhood without mention of hyperactivityGenera lized anxiety disorder 3 Moisés Calderon. [address], [place], [place], [address] , [place]. tel:[phone] Referring Provider: Chelsea Vel[address], [place], [place], [address]. tel:[phone] OFFICE/OUTPA TIENT VISIT, [facility], [address], [place], [place], [address], [place] tel:[phone] [facility] back pain (chief complaint) anxiety (chief complaint) ADD (chief complaint) LumbagoAttention deficit disorder of childhood without mention of hyperactivityGenera lized anxiety disorder 3 Moisés Calderon. [address], [place], [place], [address] , [place]. tel:[phone] Referring Provider: Chelsea Velásquez [address], [place], [place], [address]. tel:[phone] OFFICE/OUTPA TIENT VISIT, [facility], [address], [place], [place], [address], [place] tel:[phone] [facility] back pain (chief complaint) anxiety (chief complaint) ADD (chief complaint) LumbagoAttention deficit disorder of childhood without mention of hyperactivityGenera lized anxiety disorder Kush- 3 Moisés Calderon. [address], [place], [place], [address] , [place]. tel:[phone] Referring Provider: Kvng Curiel, [address], [place], [place], [address]. tel:[phone] OFFICE/OUTPA TIENT VISIT, [facility], [address], [place], [place], [address], [place] tel:[phone] [facility] back pain (chief complaint) anxiety (chief complaint) ADD (chief complaint) Generalized anxiety disorderAttention deficit disorder of childhood without mention of hyperactivityLumbag o 3 Moisés Calderon. [address], [place], [place], [address] , [place]. [phone] Referring Provider: Kvng Curiel [address], [place], [place], [address]. tel:[phone] OFFICE/OUTPA TIENT VISIT, [facility], [address], [place], [place], [address], [place] tel:[phone] [facility] back pain (chief complaint) anxiety (chief complaint) ADD (chief complaint) LumbagoAttention deficit disorder of childhood without mention of hyperactivityGenera lized anxiety disorder Apr-3 3 Moisés Calderon. [address], [place], [place], [address] , [place]. tel:[phone] Referring Provider: Kvng Curiel [address], [place], [place], [address]. tel:[phone] OFFICE/OUTPA TIENT VISIT, [facility], [address], [place], [place], [address], [place] tel:[phone] [facility] back pain (chief complaint) anxiety (chief complaint) ADD (chief complaint) LumbagoAttention deficit disorder of childhood without mention of hyperactivityGenera lized anxiety disorder Apr-0 2-201 3 Moisés Calderon. [address], [facility] A, [place], [place], [address] , [place]. tel:[phone] Referring Provider: Kvng Curiel, [address], [place], [place], [address]. tel:[phone] OFFICE/OUTPA TIENT VISIT, EST [facility], [address], [place], [place], [address], [place] tel:[phone] [facility] ADD (chief complaint) Attention deficit disorder of childhood without mention of hyperactivity 3 Moisés Calderon. [address], [facility] A, [place], [place], [address] , [place]. tel:[phone] Referring Provider: Kvgn Curiel, [address] [facility] [address], [place], [place], [address]. tel:[phone] Family History Family Member Type Diagnosis Age [...] Mental Status Date Cognitive Assessment Orientation - [place] ed to time, place, person, situation.
--- OUTSIDE RECORDS SUMMARY | 2025-04-03 11:21 | XMS_ITS | Clinical Summary ---
Author Organization [facility] Address [address] [place] [address] Phone Care Team Providers Care Multimedia Authoring Specialist Name Role Phone Provider, None Primary Care [...] 03/08/2025 2:14 PM CDT Emergency [facility] Emergency [address] [place] [address] Keshia Mak PAC Dysuria Discharge Disposition: Discharged [...] Urine HCG () (03/08/2025 1:33 PM CDT) [facility] POC URINE Negative POC URINE CONTROL [place] Urine 03/08/2025 1:33 PM CDT Keshia William Page PAC POINT OF CARE TESTING (KEL Avalos) Final Result * (ABNORMAL) URINALYSIS REFLEX IF INDICATED BY ABNORMAL RESULTS (03/08/2025 1:30 PM CDT) [facility] SPECIFIC GRAVITY 1.020 1.003 - 1.030 03/08/2025 2:01 PM CDT [facility] URINE PH 6.0 5.0 - 9.0 03/08/2025 2:01 PM CDT [facility] WBC ESTERASE Negative Negative 03/08/2025 2:01 PM CDT [facility] NITRITE Negative Negative 03/08/2025 2:01 PM CDT [facility] PROTEIN, RANDOM URINE 30 mg/dL(A) Negative 03/08/2025 2:01 PM CDT [facility] URINE GLUCOSE, QUAL Negative Negative 03/08/2025 2:01 PM CDT [facility] URINE KETONES 5 mg/dL(A) Negative 03/08/2025 2:01 PM CDT [facility] UROBILINOGEN Normal Normal mg/dL 03/08/2025 2:01 PM CDT [facility] URINE BLOOD Negative Negative nirav/ul 03/08/2025 2:01 PM CDT [facility] URINALYSIS COLOR Yellow 03/08/20 2:01 PM CDT [facility] URINALYSIS CLARITY Slightly Cloudy 03/08/2025 2:01 PM CDT [facility] WBC (Urine) 0-5 Negative, 0-5 /hpf 03/08/2025 2:01 PM CDT [facility] URINE RBC'S 0-2 Negative, 0-2 /hpf 03/08/2025 2:01 PM CDT [facility] EPITHELIAL CELLS Moderate amount /lpf 03/08/2025 2:01 PM CDT [facility] BACTERIA, URINE Few(A) Negative /hpf 03/08/2025 2:01 PM CDT [facility] URINE MUCOUS Few 03/08/2025 2:01 PM CDT [facility] CRYSTALS Calcium oxalate 03/08/2025 2:01 PM CDT [facility] Urine URINE SPECIMEN OBTAINED BY CLEAN CATCH PROCEDURE / Unknown Non-Phlebotomy Collection / Unknown 03/08/2025 1:30 PM CDT 03/08/2025 1:38 PM CDT us Keshia William Page PAC URINE ORDERABLES Final Resul t [facility] [place] [address] from Last 3 Months Insurance MEDICAID [place] [employer] Care Teams Multimedia Authoring Specialist Relationship Specialty Start Date End Date Provider, None [place] PCP - General 03/08/25
--- OUTSIDE RECORDS SUMMARY | 2025-04-03 11:21 | XMS_ITS | Clinical Summary ---
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
[2025-04-03 11:24] VITALS: BP 129/71; PULSE 95; RESP 20; TEMP 36.4; O2SAT 100
--- OUTSIDE RECORDS SUMMARY | 2025-04-03 11:24 | XMS_ITS | Continuity of Care Document ---
Author Organization [facility] Address [address] [place] [address] [place] [address] Phone Care Team Providers Care Finished Goods Stock Clerk Name Role Phone Kvng Curiel MD Unavailable Unavailable Allergies, Adverse Reactions, Alerts Substance Reaction Status Criticality Penicillins Active No Information Medications Medication Instructions Dosage Effective Dates (start - stop) Status Comments Kelley 5 mg-325 mg tablet take 1 tablet [...] Encounter OFFICE/OUTPA TIENT VISIT, EST [facility], [address], [place], [place], [address], [place] tel:[phone] [facility] ADD (chief complaint) toothache (chief complaint) anxiety (chief complaint) Attention deficit disorder of childhood without mention of hyperactivityGenera lized anxiety disorderAtypical face pain 2 4 Moisés Calderon. [address], [place], [place], [address] , [place]. tel:[phone] Referring Provider: Chelsea Velás[address], [place], [place], [address]. tel:[phone] PREV VISIT, EST, AGE 18-39 [facility], [address], [place], [place], [address], [place] tel:[phone] [facility] Physical (chief complaint) Routine Medical ExamRoutine Medical Exam 0 4 Moisés Calderon. [address], [place], [place], [address] , [place]. tel:[phone] Referring Provider: Chelsea Velásquez [address], [place], [place], [address]. tel:[phone] OFFICE/OUTPA TIENT VISIT, EST [facility], [address], [place], [place], [address], [place] tel:[phone] [facility] toothache (chief complaint) anxiety (chief complaint) back pain (chief complaint) Atypical face painLumbagoGenerali zed anxiety disorderAttention deficit disorder of childhood without mention of hyperactivity 4 Moisés Calderon. [address], [place], [place], [address] , [place]. tel:[phone] Referring Provider: Chelsea Velásquez [address], [place], [place], [address]. tel:[phone] OFFICE/OUTPA TIENT VISIT, EST [facility], [address], [place], [place], [address], [place] tel:[phone] [facility] anxiety (chief complaint) ADD (chief complaint) back pain (chief complaint) LumbagoAttention deficit disorder of childhood without mention of hyperactivityGenera lized anxiety disorderBipolar disorder, unspecified 4 Moisés Calderon. [address], [place], [place], [address] , [place]. [phone] Referring Provider: Chelsea Velásquez [address], [place], [place], [address]. tel:[phone] OFFICE/OUTPA TIENT VISIT, [facility], [address], [place], [place], [address], [place] tel:[phone] [facility] anxiety (chief complaint) back pain (chief complaint) LumbagoAttention deficit disorder of childhood without mention of hyperactivityGenera lized anxiety disorderPain in joint involving shoulder region 3 Moisés Calderon. [address], [place], [place], [address] , [place]. [phone] Referring Provider: Chelsea Velásquez [address], [place], [place], [address]. tel:[phone] OFFICE/OUTPA TIENT VISIT, [facility], [address], [place], [place], [address], [place] tel:[phone] [facility] back pain (chief complaint) anxiety (chief complaint) ADD (chief complaint) LumbagoAttention deficit disorder of childhood without mention of hyperactivityGenera lized anxiety disorder 3 Moisés Calderon. [address], [place], [place], [address] , [place]. [phone] Referring Provider: Chelsea Velásquez [address], [place], [place], [address]. tel:[phone] PREV VISIT, EST, AGE 18-39 [facility], [address], [place], [place], [address], [place] tel:[phone] [facility] anxiety (chief complaint) back pain (chief complaint) ADD (chief complaint) Routine Medical ExamAttention deficit disorder of childhood without mention of hyperactivityGenera lized anxiety disorderLumbMcLaren Oakland [facility] Exam 3 Moisés Calderon. [address], [place], [place], [address] , [place]. tel:[phone] Referring Provider: Chelsea Velásquez [address], [place], [place], [address]. tel:[phone] OFFICE/OUTPA TIENT VISIT, [facility], [address], [place], [place], [address], [place] tel:[phone] [facility] anxiety (chief complaint) ADD (chief complaint) back pain (chief complaint) LumbagoAttention deficit disorder of childhood without mention of hyperactivityGenera lized anxiety disorder 3 Moisés Calderon. [address], [place], [place], [address] , [place]. tel:[phone] Referring Provider: Chelsea Velás[address], [place], [place], [address]. tel:[phone] OFFICE/OUTPA TIENT VISIT, [facility], [address], [place], [place], [address], [place] tel:[phone] [facility] back pain (chief complaint) anxiety (chief complaint) ADD (chief complaint) LumbagoAttention deficit disorder of childhood without mention of hyperactivityGenera lized anxiety disorder 3 Moisés Calderon. [address], [place], [place], [address] , [place]. tel:[phone] Referring Provider: Chelsea Velásquez [address], [place], [place], [address]. tel:[phone] OFFICE/OUTPA TIENT VISIT, [facility], [address], [place], [place], [address], [place] tel:[phone] [facility] back pain (chief complaint) anxiety (chief complaint) ADD (chief complaint) LumbagoAttention deficit disorder of childhood without mention of hyperactivityGenera lized anxiety disorder Kush- 3 Moisés Calderon. [address], [place], [place], [address] , [place]. tel:[phone] Referring Provider: Kvng Curiel, [address], [place], [place], [address]. tel:[phone] OFFICE/OUTPA TIENT VISIT, [facility], [address], [place], [place], [address], [place] tel:[phone] [facility] back pain (chief complaint) anxiety (chief complaint) ADD (chief complaint) Generalized anxiety disorderAttention deficit disorder of childhood without mention of hyperactivityLumbag o 3 Moisés Calderon. [address], [place], [place], [address] , [place]. [phone] Referring Provider: Kvng Curiel [address], [place], [place], [address]. tel:[phone] OFFICE/OUTPA TIENT VISIT, [facility], [address], [place], [place], [address], [place] tel:[phone] [facility] back pain (chief complaint) anxiety (chief complaint) ADD (chief complaint) LumbagoAttention deficit disorder of childhood without mention of hyperactivityGenera lized anxiety disorder Apr-3 3 Moisés Calderon. [address], [place], [place], [address] , [place]. tel:[phone] Referring Provider: Kvng Curiel [address], [place], [place], [address]. tel:[phone] OFFICE/OUTPA TIENT VISIT, [facility], [address], [place], [place], [address], [place] tel:[phone] [facility] back pain (chief complaint) anxiety (chief complaint) ADD (chief complaint) LumbagoAttention deficit disorder of childhood without mention of hyperactivityGenera lized anxiety disorder Apr-0 2-201 3 Moisés Calderon. [address], [facility] [address], [place], [place], [address] , [place]. tel:[phone] Referring Provider: Kvng Curiel, [address], [place], [place], [address]. tel:[phone] OFFICE/OUTPA TIENT VISIT, EST [facility], [address], [place], [place], [address], [place] tel:[phone] [facility] ADD (chief complaint) Attention deficit disorder of childhood without mention of hyperactivity 3 Moisés Calderon. [address], [facility] A, [place], [place], [address] , [place]. tel:[phone] Referring Provider: Kvng Curiel, [address] [facility] [address], [place], [place], [address]. tel:[phone] Family History Family Member Type Diagnosis Age At Onset Sister Problem (finding) Alive and well Father Problem (finding) Alive and well Mother Problem (finding) Alive and well Payers Payer name Insurance type Covered constitution party ID Authoriza tion(s) No Information Social [...] Mental Status Date Cognitive Assessment Orientation - [place] ed to time, place, person, situation.
--- NOTE | 2025-04-03 12:13 | ED.GENADULT ---
HPI - General Adult General Chief complaint: Skin/Abscess/Foreign Body Stated complaint: Skin Sore on Both Feet Source: patient Mode of arrival: ambulatory Limitations: no limitations History of Present Illness HPI narrative: Pt presents for evaluation of redness and blisters to the right foot. Symptom onset today. She states she was recently seen in the ED at [facility] for skin lesions to right side of her back. She states she was told it was shingles and she was started on antiviral medication. Her symptoms improved. She states she then went to [facility] for redness to the left wrist. She states she was told it was an infection of MRSA and was given oral abx. She now has itching, redness and blisters noted to the right foot. No new lotions, soaps, detergents or topical products. Related Data Home Medications ?Medication ?Instructions ?Recorded ?Confirmed ?Last Taken ?Type cephalexin 500 mg capsule mg 04/03/25 Unknown History clindamycin HCl 150 mg capsule mg 04/03/25 Unknown History clonazepam 0.5 mg tablet mg 04/03/25 Unknown History dextroamphetamine-amphetamine 10 04/03/25 Unknown History mg tablet dextroamphetamine-amphetamine 20 04/03/25 Unknown History mg tablet dextroamphetamine-amphetamine ER PO 04/03/25 Unknown History 30 mg 24hr capsule,extend release gabapentin 300 mg capsule mg 04/03/25 Unknown History hydrocodone 5 mg-acetaminophen 325 tablet 04/03/25 Unknown History mg tablet Allergies Allergy/AdvReac Type Severity Reaction Status Date / Time amoxicillin Allergy Mild RASH Verified 04/01/25 09:43 morphine Allergy Mild Hives Verified 04/01/25 09:43 Penicillins Allergy Mild RASH Verified 04/01/25 09:43 latex Allergy Unknown Verified 04/01/25 09:43 Sulfa (Sulfonamide Allergy Hives Verified 04/01/25 09:43 Antibiotics) Review of Systems Review of Systems: CONSTITUTIONAL: Denies fever, chills, or sweats. EYES: Denies visual changes, redness, or discharge. ENT: Denies rhinorrhea, congestion, sore throat, or otalgia. CARDIOVASCULAR: Denies chest pain, palpitations, or edema. RESPIRATORY: Denies cough or dyspnea. GASTROINTESTINAL: Denies abdominal pain, nausea, vomiting, or diarrhea. GENITOURINARY: Denies dysuria or hematuria. SKIN: Reports redness, blisters and itching to the right foot MUSCULOSKELETAL: Denies back pain, joint pain, or myalgia. NEUROLOGIC: Denies headache, numbness, dizziness, or weakness. PSYCHIATRIC: Denies anxiety or depression. [facility] Past Medical History Medical History Overweight (BMI 25.0-29.9) Anxiety Seizure disorder remote history. 2 seizures 10 years ago. Surgical History Surgical History No history of previous surgery Family History Family History Other No acute medical problems Social History Social History Smoking status: Former smoker Gender identity (if verbalized by the patient): Female Exam Narrative: GENERAL: Well-appearing, well-nourished, and in no acute distress. HEAD: Normocephalic, atraumatic. EYES: PERRLA and EOMI. ENT: Nares clear, no rhinorrhea or epistaxis. Mucous membranes moist. Oropharynx without tonsillar hypertrophy exudate or other lesions. Bilateral TMs pearly ruggiero nonbulging NECK: Supple. No adenopathy or masses. No carotid bruits or JVD CHEST: Clear to auscultation. No respiratory distress. No wheezes rales or rhonchi HEART: Regular rate and rhythm. No murmur heard. Normal peripheral pulses. ABDOMEN: Soft, nontender, nondistended, normal active bowel sounds. EXTREMITIES: Normal range of motion. No edema. SKIN: There are scattered areas of erythema with a few blistered lesions to the right foot. NEURO: No focal deficits. Alert and oriented x3. PSYCH: Exhibits odd behavior Course Course Emergency Course: This is a 39 year old female who presented for evaluation of redness, blisters and itching to the right foot. Etiology unclear. This could be an early cellulitis vs allergic response. She may take Benadryl for itching. Will discharge with doxycycline and Medrol Dosepak. Follow-up with primary provider. Go to the ER for worsening symptoms. Pt in agreement with plan of care. Level of Care: Express Care Visit Vital Signs Vital signs: Vital Signs Temperature 36.4 C 04/03/25 11:24 Pulse Rate 95 04/03/25 11:24 Respiratory Rate 20 04/03/25 11:24 Blood Pressure 129/71 04/03/25 11:24 Pulse Oximetry 100 04/03/25 11:24 Oxygen Delivery Room Air 04/03/25 11:24 Temperature 36.4 C 04/03/25 11:24 Pulse Rate 95 04/03/25 11:24 Respiratory Rate 20 04/03/25 11:24 Blood Pressure 129/71 04/03/25 11:24 Pulse Oximetry 100 04/03/25 11:24 Oxygen Delivery Room Air 04/03/25 11:24 Medical Decision Making Vital Signs Vital Signs: Vital Signs Temperature 36.4 C 04/03/25 11:24 Pulse Rate 95 04/03/25 11:24 Respiratory Rate 20 04/03/25 11:24 Blood Pressure 129/71 04/03/25 11:24 Pulse Oximetry 100 04/03/25 11:24 Oxygen Delivery Room Air 04/03/25 11:24 Temperature 36.4 C 04/03/25 11:24 Pulse Rate 95 04/03/25 11:24 Respiratory Rate 20 04/03/25 11:24 Blood Pressure 129/71 04/03/25 11:24 Pulse Oximetry 100 04/03/25 11:24 Oxygen Delivery Room Air 04/03/25 11:24 Discharge Plan Discharge Clinical Impression: Acute eruption of skin Patient Disposition: Home Condition: Stable Instructions: Antibiotic Form, Acute Rash (ED) Patient Language: French Prescriptions: New methylprednisolone [Medrol (Juan)] 4 mg tablets,dose pack See Rx Instructions .ROUTE .COMPLEX Qty: 21 0RF Rx Instructions: for 6 days doxycycline hyclate 100 mg tablet 100 mg PO BID Qty: 20 0RF No Action meloxicam 15 mg tablet 15 mg PO DAILY Qty: 10 0RF hydrocodone-acetaminophen 5-325 mg tablet dextroamphetamine-amphetamine 10 mg tablet clonazepam 0.5 mg tablet clindamycin HCl 150 mg capsule cephalexin 500 mg capsule dextroamphetamine-amphetamine 20 mg tablet gabapentin 300 mg capsule dextroamphetamine-amphetamine 30 mg capsule,extended release 24hr PO valacyclovir 1 gram tablet 1,000 mg PO TID 7 Days Qty: 21 0RF Follow-up/Referrals: Alex Aaron DO [Primary Care Provider] - Time of Disposition: 12:12
== END 2025-04-03 12:23 | disposition home or self-care (01) ==
PROVIDERS: Emergency Provider Nurse Practitioner; PCP Family Medicine
DX: R21 Rash and other nonspecific skin eruption (principal); Z87.891 Personal history of nicotine dependence
CPT/HCPCS: 99213; G0463

== ENCOUNTER 2025-04-05 16:02 | Outpatient (CLI) | payer OTHER, SELFPAY ==
--- OUTSIDE RECORDS SUMMARY | 2025-04-05 16:05 | XMS_ITS | Clinical Summary ---
Author Organization [facility] Address [address] [place] [address] Phone Care Team Providers Care Levers Lace Machine Operator Name Role Phone Provider, None Primary [...] 2:14 PM CDT Emergency [facility] [address] [place] [address] Keshia Mak PAC Dysuria Discharge Disposition: Discharged [...] 19+ 3-dose series) 2006 Pap Smear 2008 Human Papillomavirus (HPV) Immunization (1 - 3-dose SCDM series) 2014 Cervical Cancer Screening (CCS) 2017 HPV/Cotest 2017 [...] Urine HCG () (03/08/2025 1:33 PM CDT) [facility] POC URINE Negative POC URINE CONTROL Fishing Hand Pass Urine 03/08/2025 1:33 PM CDT Keshia William Page PAC POINT OF CARE TESTING (KEL Bailey) Final Result * (ABNORMAL) URINALYSIS REFLEX IF INDICATED BY ABNORMAL RESULTS (03/08/2025 1:30 PM CDT) [facility] SPECIFIC GRAVITY 1.020 1.003 - 1.030 03/08/2025 2:01 PM CDT [facility] URINE PH 6.0 5.0 - 9.0 03/08/2025 2:01 PM CDT [facility] WBC ESTERASE Negative Negative 03/08/2025 2:01 PM CDT [facility] NITRITE Negative Negative 03/08/2025 2:01 PM CDT [facility] PROTEIN, RANDOM URINE 30 mg/dL(A) Negative 03/08/2025 2:01 PM CDT [facility] URINE GLUCOSE, QUAL Negative Negative 03/08/2025 2:01 PM CDT [facility] URINE KETONES 5 mg/dL(A) Negative 03/08/2025 2:01 PM CDT [facility] UROBILINOGEN Normal Normal mg/dL 03/08/2025 2:01 PM CDT [facility] URINE BLOOD Negative Negative nirav/ul 03/08/2025 2:01 PM CDT [facility] URINALYSIS COLOR Yellow 03/08/20 2:01 PM CDT [facility] URINALYSIS CLARITY Slightly Cloudy 03/08/2025 2:01 PM CDT [facility] WBC (Urine) 0-5 Negative, 0-5 /hpf 03/08/2025 2:01 PM CDT [facility] URINE RBC'S 0-2 Negative, 0-2 /hpf 03/08/2025 2:01 PM CDT [facility] EPITHELIAL CELLS Moderate amount /lpf 03/08/2025 2:01 PM CDT [facility] BACTERIA, URINE Few(A) Negative /hpf 03/08/2025 2:01 PM CDT [facility] URINE MUCOUS Few 03/08/2025 2:01 PM CDT [facility] CRYSTALS Calcium oxalate 03/08/2025 2:01 PM CDT [facility] Urine URINE SPECIMEN OBTAINED BY CLEAN CATCH PROCEDURE / Unknown Non-Phlebotomy Collection / Unknown 03/08/2025 1:30 PM CDT 03/08/2025 1:38 PM CDT us Keshia William Page PAC URINE ORDERABLES Final Resul t [facility] [place] [address] from Last 3 Months Insurance MEDICAID [place] [employer] Care Teams Levers Lace Machine Operator Relationship Specialty Start Date End Date Provider, None TARSHA PCP - General 03/08/25
--- OUTSIDE RECORDS SUMMARY | 2025-04-05 16:05 | XMS_ITS | Clinical Summary ---
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
--- OUTSIDE RECORDS SUMMARY | 2025-04-05 16:05 | XMS_ITS | Patient Health Record ---
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
[2025-04-05 16:47] LABS: Alanine Aminotransferase 16 U/L (6-35); Albumin Level 4.2 g/dL (3.5-5.1); Alkaline Phosphatase 61 U/L (38-126); Anion Gap 5 mmol/L (4-12); Aspartate Amino Transferase 24 U/L (14-36); Bilirubin,Total 0.3 mg/dL (0.2-1.3); Blood Urea Nitrogen 7 mg/dL (7-17); Calcium 8.9 mg/dL (8.4-10.2); Carbon Dioxide 27 mmol/L (22-30); Chloride 105 mmol/L (98-107); Cholesterol 169 mg/dL (0-200); Estimated Glomerular Filt Rate > 60; Glucose 100 mg/dL (65-110); HDL Direct 55 mg/dL; Potassium 3.8 mmol/L (3.4-5.0); Sodium 137 mmol/L (137-145); Total Protein 7.0 g/dL (6.3-8.2); Triglycerides 189 mg/dL (<150)
[2025-04-05 16:58] LABS: Hematocrit 38.5 % (37.0-47.0); Hemoglobin 12.5 g/dL (12.0-15.0); Immature Granulocyte Percent A 0.4 % (0-0.5); Lymphocytes Absolute Auto 2.18 K/mm3 (0.9-3.2); Mean Corpuscular HGB Conc 32.5 g/dl (32-36); Mean Corpuscular Hemoglobin 30.6 pg (26-34); Mean Corpuscular Volume 94.1 fl (80-100); Nucleated Red Blood Cells Absolute Auto 0.000 K/mm3 (0.0-0.012); Nucleated Red Blood Cells Perc 0.0 % (0.0-0.2); Platelet Count Result 365 k/mm3 (150-375); Red Blood Count 4.09 M/mm3 (4.2-5.4); White Blood Count 8.1 K/mm3 (4.5-10.0)
[2025-04-05 17:16] LABS: Thyroid Stimulating Hormone Reflex 0.687 uIU/mL (0.465-4.68)
[2025-04-05 17:29] LABS: Hepatitis B Surface Antigen Negative (Negative)
[2025-04-05 17:34] LABS: HAV RESULT Negative (Negative); Hepatitis B Core IgM Result Negative (Negative)
[2025-04-05 17:41] LABS: HIV 1/2 Ab P24 Ag Result Negative (Negative)
[2025-04-07 21:06] LABS: Amphetamine Conf, MS, UR >3000 ng/mL (Cutoff=500); Amphetamines Confirm Rfx YES YES; Cannabinoid Confirm Rfx YES YES; Cannabinoid Screen, Urine See Final Results ng/mL (Cutoff=20); Carboxy THC Conf, MS, UR >750 ng/mL (Cutoff=10); Cocaine (Metab.) Screen, Urine Negative ng/mL (Cutoff=300); Oxycodone/Oxymorphone, Urine Negative ng/mL (Cutoff=100); Phencyclidine Screen, Urine Negative ng/mL (Cutoff=25)
== END 2025-04-05 16:03 | disposition home or self-care (01) ==
PROVIDERS: PCP Family Medicine; Visit Provider Family Medicine
DX: Z77.21 Contact with and (suspected) exposure to potentially hazardous body fluids (principal); Z00.00 Encounter for general adult medical examination without abnormal findings; E03.9 Hypothyroidism, unspecified; R74.01 Elevation of levels of liver transaminase levels
CPT/HCPCS: 36415; 80053; 80061; 80074; 80307; 80324; 80349; 84443; 85025; 86703; G0432; G0480

== ENCOUNTER 2025-04-08 17:40 | Emergency (ER) | payer OTHER, SELFPAY ==
--- OUTSIDE RECORDS SUMMARY | 2025-04-08 17:41 | XMS_ITS | Clinical Summary ---
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
--- OUTSIDE RECORDS SUMMARY | 2025-04-08 17:42 | XMS_ITS | Continuity of Care Document ---
Author Organization [facility] Address [address] [place] [address] [place] [address] Phone Care Team Providers Care Silverware Buffer Name Role Phone Kvng Curiel MD Unavailable [...] for anxiety. avoid driving or operate machines Johnston 5 mg-325 mg tablet take 1 tablet [...] Copied on Encounter OFFICE/OUTPA TIENT VISIT, EST [facility], [address], [place], [place], [address], [place] tel:[phone] [facility] ADD (chief complaint) toothache (chief complaint) anxiety (chief complaint) Attention deficit disorder of childhood without mention of hyperactivityGenera lized anxiety disorderAtypical face pain 2 4 Moisés Calderon. [address], [place], [place], [address] , [place]. tel:[phone] Referring Provider: Chelsea Vel[address], [place], [place], [address]. tel:[phone] PREV VISIT, EST, AGE 18-39 [facility], [address], [place], [place], [address], [place] tel:[phone] [facility] Physical (chief complaint) Routine Medical ExamRoutine Medical Exam 0 4 Moisés Calderon. [address], [place], [place], [address] , [place]. tel:[phone] Referring Provider: Chelsea Velásquez [address], [place], [place], [address]. tel:[phone] OFFICE/OUTPA TIENT VISIT, EST [facility], [address], [place], [place], [address], [place] tel:[phone] [facility] toothache (chief complaint) anxiety (chief complaint) back pain (chief complaint) Atypical face painLumbagoGenerali zed anxiety disorderAttention deficit disorder of childhood without mention of hyperactivity 4 Moisés Calderon. [address], [place], [place], [address] , [place]. tel:[phone] Referring Provider: Chelsea Velásquez [address], [place], [place], [address]. tel:[phone] OFFICE/OUTPA TIENT VISIT, EST [facility], [address], [place], [place], [address], [place] tel:[phone] [facility] anxiety (chief complaint) ADD (chief complaint) back pain (chief complaint) LumbagoAttention deficit disorder of childhood without mention of hyperactivityGenera lized anxiety disorderBipolar disorder, unspecified 4 Moisés Calderon. [address], [place], [place], [address] , [place]. tel:[phone] Referring Provider: Chelsea Velásquez [address], [place], [place], [address]. tel:[phone] OFFICE/OUTPA TIENT VISIT, [facility], [address], [place], [place], [address], [place] tel:[phone] [facility] anxiety (chief complaint) back pain (chief complaint) LumbagoAttention deficit disorder of childhood without mention of hyperactivityGenera lized anxiety disorderPain in joint involving shoulder region 3 Moisés Calderon. [address], [place], [place], [address] , [place]. [phone] Referring Provider: Chelsea Velásquez [address], [place], [place], [address]. tel:[phone] OFFICE/OUTPA TIENT VISIT, [facility], [address], [place], [place], [address], [place] tel:[phone] [facility] back pain (chief complaint) anxiety (chief complaint) ADD (chief complaint) LumbagoAttention deficit disorder of childhood without mention of hyperactivityGenera lized anxiety disorder 3 Moisés Calderon. [address], [place], [place], [address] , [place]. [phone] Referring Provider: Chelsea Velásquez [address], [place], [place], [address]. tel:[phone] PREV VISIT, EST, AGE 18-39 [facility], [address], [place], [place], [address], [place] tel:[phone] [facility] anxiety (chief complaint) back pain (chief complaint) ADD (chief complaint) Routine Medical ExamAttention deficit disorder of childhood without mention of hyperactivityGenera lized anxiety disorderLumbAsc[facility] Exam 3 Moisés Calderon. [address], [place], [place], [address] , [place]. tel:[phone] Referring Provider: Cheslea Velásquez [address], [place], [place], [address]. tel:[phone] OFFICE/OUTPA TIENT VISIT, [facility], [address], [place], [place], [address], [place] tel:[phone] [facility] anxiety (chief complaint) ADD (chief complaint) back pain (chief complaint) LumbagoAttention deficit disorder of childhood without mention of hyperactivityGenera lized anxiety disorder 3 Moisés Calderon. [address], [place], [place], [address] , [place]. tel:[phone] Referring Provider: Chelsea Velás[address], [place], [place], [address]. tel:[phone] OFFICE/OUTPA TIENT VISIT, [facility], [address], [place], [address], [place] tel:[phone] [facility] back pain (chief complaint) anxiety (chief complaint) ADD (chief complaint) LumbagoAttention deficit disorder of childhood without mention of hyperactivityGenera lized anxiety disorder 3 Moisés Calderon. [address], [place], [place], [address] , [place]. tel:[phone] Referring Provider: Chelsea Velásquez [address], [place], [place], [address]. tel:[phone] OFFICE/OUTPA TIENT VISIT, [facility], [address], [place], [address], [place] tel:[phone] [facility] back pain (chief complaint) anxiety (chief complaint) ADD (chief complaint) LumbagoAttention deficit disorder of childhood without mention of hyperactivityGenera lized anxiety disorder Kush- 3 Moisés Calderon. [address], [place], [place], [address] , [place]. tel:[phone] Referring Provider: Kvng Curiel, [address], [place], [place], [address]. tel:[phone] OFFICE/OUTPA TIENT VISIT, [facility], [address], [place], [address], [place] tel:[phone] [facility] back pain (chief complaint) anxiety (chief complaint) ADD (chief complaint) Generalized anxiety disorderAttention deficit disorder of childhood without mention of hyperactivityLumbag o 3 Moisés Calderon. [address], [place], [place], [address] , [place]. [phone] Referring Provider: Kvng Curiel [address], [place], [place], [address]. tel:[phone] OFFICE/OUTPA TIENT VISIT, [facility], [address], [place], [place], [address], [place] tel:[phone] [facility] back pain (chief complaint) anxiety (chief complaint) ADD (chief complaint) LumbagoAttention deficit disorder of childhood without mention of hyperactivityGenera lized anxiety disorder Apr-3 3 Moisés Calderon. [address], [place], [place], [address] , [place]. tel:[phone] Referring Provider: Kvng Curiel [address], [place], [place], [address]. tel:[phone] OFFICE/OUTPA TIENT VISIT, [facility], [address], [place], [place], [address], [place] tel:[phone] [facility] back pain (chief complaint) anxiety (chief complaint) ADD (chief complaint) LumbagoAttention deficit disorder of childhood without mention of hyperactivityGenera lized anxiety disorder Apr-0 2-201 3 Moisés Calderon. [address], [facility] A, [place], [place], [address] , [place]. tel:[phone] Referring Provider: Kvng Curiel, [address], [place], [place], [address]. tel:[phone] OFFICE/OUTPA TIENT VISIT, EST [facility], [address], [place], [place], [address], [place] tel:[phone] [facility] ADD (chief complaint) Attention deficit disorder of childhood without mention of hyperactivity 3 Moisés Calderon. [address], [facility] A, [place], [place], [address] , [place]. tel:[phone] Referring Provider: Kvng Curiel, [address] [facility] A, [place], [place], [address]. tel:[phone] Family History Family Member Type Diagnosis Age [...] Mental Status Date Cognitive Assessment Orientation - Vandergrift ed to time, place, person, situation.
--- OUTSIDE RECORDS SUMMARY | 2025-04-08 17:42 | XMS_ITS | Clinical Summary ---
Author Organization [facility] Address [address] [place] [address] Phone Care Team Providers Care Global Sales Manager Name Role Phone Provider, None Primary Care [...] 03/08/2025 2:14 PM CDT Emergency [facility] [address] [place] [address] Keshia Mak PAC Dysuria Discharge Disposition: Discharged [...] Urine HCG () (03/08/2025 1:33 PM CDT) [facility] POC URINE Negative POC URINE CONTROL Hat Checker Pass Urine 03/08/2025 1:33 PM CDT Keshia William Page PAC POINT OF CARE TESTING (KEL Bailey) Final Result * (ABNORMAL) URINALYSIS REFLEX IF INDICATED BY ABNORMAL RESULTS (03/08/2025 1:30 PM CDT) [facility] SPECIFIC GRAVITY 1.020 1.003 - 1.030 03/08/2025 2:01 PM CDT [facility] URINE PH 6.0 5.0 - 9.0 03/08/2025 2:01 PM CDT [facility] WBC ESTERASE Negative Negative 03/08/2025 2:01 PM CDT [facility] NITRITE Negative Negative 03/08/2025 2:01 PM CDT [facility] PROTEIN, RANDOM URINE 30 mg/dL(A) Negative 03/08/2025 2:01 PM CDT [facility] URINE GLUCOSE, QUAL Negative Negative 03/08/2025 2:01 PM CDT [facility] URINE KETONES 5 mg/dL(A) Negative 03/08/2025 2:01 PM CDT [facility] UROBILINOGEN Normal Normal mg/dL 03/08/2025 2:01 PM CDT [facility] URINE BLOOD Negative Negative nirav/ul 03/08/2025 2:01 PM CDT [facility] URINALYSIS COLOR Yellow 03/08/20 2:01 PM CDT [facility] URINALYSIS CLARITY Slightly Cloudy 03/08/2025 2:01 PM CDT [facility] WBC (Urine) 0-5 Negative, 0-5 /hpf 03/08/2025 2:01 PM CDT [facility] URINE RBC'S 0-2 Negative, 0-2 /hpf 03/08/2025 2:01 PM CDT [facility] EPITHELIAL CELLS Moderate amount /lpf 03/08/2025 2:01 PM CDT [facility] BACTERIA, URINE Few(A) Negative /hpf 03/08/2025 2:01 PM CDT [facility] URINE MUCOUS Few 03/08/2025 2:01 PM CDT [facility] CRYSTALS Calcium oxalate 03/08/2025 2:01 PM CDT [facility] Urine URINE SPECIMEN OBTAINED BY CLEAN CATCH PROCEDURE / Unknown Non-Phlebotomy Collection / Unknown 03/08/2025 1:30 PM CDT 03/08/2025 1:38 PM CDT us Keshia William Page PAC URINE ORDERABLES Final Resul t [facility] [place] [address] from Last 3 Months Insurance MEDICAID [place] [employer] Care Teams Global Sales Manager Relationship Specialty Start Date End Date Provider, None TARSHA PCP - General 03/08/25
--- OUTSIDE RECORDS SUMMARY | 2025-04-08 17:42 | XMS_ITS | Patient Health Record ---
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
--- OUTSIDE RECORDS SUMMARY | 2025-04-08 17:44 | XMS_ITS | Continuity of Care Document ---
Author Organization [facility] Address [address] [place] [address] [place] [address] Phone Care Team Providers Care Nuclear Officer Name Role Phone Kvng Curiel MD Unavailable Unavailable Allergies, Adverse Reactions, Alerts Substance Reaction Status Criticality Penicillins Active No Information Medications Medication Instructions Dosage Effective Dates (start - stop) Status Comments [place] 5 mg-325 mg tablet take 1 tablet [...] VISIT, EST [facility], [address], [place], [place], [address], [place] tel:[phone] [facility] ADD (chief complaint) toothache (chief complaint) anxiety (chief complaint) Attention deficit disorder of childhood without mention of hyperactivityGenera lized anxiety disorderAtypical face pain 2 4 Moisés Calderon. [address], [place], [place], [address] , [place]. tel:[phone] Referring Provider: Chelsea Vel[address], [place], [place], [address]. tel:[phone] PREV VISIT, EST, AGE 18-39 [facility], [address], [place], [place], [id number], [place] tel:[phone] [facility] Physical (chief complaint) Routine Medical ExamRoutine Medical Exam 0 4 Moisés Calderon. [address], [address], [place], [place], [address] , [place]. tel:[phone] Referring Provider: Chelsea Velásquez [address], [place], [place], [address]. tel:[phone] OFFICE/OUTPA TIENT VISIT, EST [facility], [address], [place], [place], [address], [place] tel:[phone] [facility] toothache (chief complaint) anxiety (chief complaint) back pain (chief complaint) Atypical face painLumbagoGenerali zed anxiety disorderAttention deficit disorder of childhood without mention of hyperactivity 4 Moisés Calderon. [address], [place], [place], [address] , [place]. tel:[phone] Referring Provider: Chelsea Velásquez [address], [place], [place], [address]. tel:[phone] OFFICE/OUTPA TIENT VISIT, EST [facility], [address], [place], [place], [id number], [place] tel:[phone] [facility] anxiety (chief complaint) ADD (chief complaint) back pain (chief complaint) LumbagoAttention deficit disorder of childhood without mention of hyperactivityGenera lized anxiety disorderBipolar disorder, unspecified 4 Moisés Caldreon. [address], [place], [place], [address] , [place]. tel:[phone] Referring Provider: Chelsea Velásquez [address], [place], [place], [address]. tel:[phone] OFFICE/OUTPA TIENT VISIT, [facility], [address], [place], [place], [address], [place] tel:[phone] [facility] anxiety (chief complaint) back pain (chief complaint) LumbagoAttention deficit disorder of childhood without mention of hyperactivityGenera lized anxiety disorderPain in joint involving shoulder region 3 Moisés Calderon. [address], [place], [place], [address] , [place]. [phone] Referring Provider: Chelsea Velásquez [address], [place], [place], [address]. tel:[phone] OFFICE/OUTPA TIENT VISIT, [facility], [address], [place], [place], [address], [place] tel:[phone] [facility] back pain (chief complaint) anxiety (chief complaint) ADD (chief complaint) LumbagoAttention deficit disorder of childhood without mention of hyperactivityGenera lized anxiety disorder 3 Moisés Calderon. [address], [place], [place], [address] , [place]. [phone] Referring Provider: Chelsea Velásquez [address], [place], [place], [id number]. tel:[phone] PREV VISIT, EST, AGE 18-39 [facility], [address], [place], [place], [address], [place] tel:[phone] [facility] anxiety (chief complaint) back pain (chief complaint) ADD (chief complaint) Routine Medical ExamAttention deficit disorder of childhood without mention of hyperactivityGenera lized anxiety disorderLumbMun[facility] 3 Moisés Calderon. [address], [place], [place], [address] , [place]. tel:[phone] Referring Provider: Chelsea Velásquez [address], [place], [place], [address]. tel:[phone] OFFICE/OUTPA TIENT VISIT, [facility], [address], [place], [place], [address], [place] tel:[phone] [facility] anxiety (chief complaint) ADD (chief complaint) back pain (chief complaint) LumbagoAttention deficit disorder of childhood without mention of hyperactivityGenera lized anxiety disorder 3 Moisés Calderon. [address], [place], [place], [address] , [place]. tel:[phone] Referring Provider: Chelsea Velásquez [address], [place], [place], [address]. tel:[phone] OFFICE/OUTPA TIENT VISIT, [facility], [address], [place], [place], [address], [place] tel:[phone] [facility] back pain (chief complaint) anxiety (chief complaint) ADD (chief complaint) LumbagoAttention deficit disorder of childhood without mention of hyperactivityGenera lized anxiety disorder 3 Moisés Calderon. [address], [place], [place], [address] , [place]. tel:[phone] Referring Provider: Chelsea Velásquez [address], [place], [place], [address]. tel:[phone] OFFICE/OUTPA TIENT VISIT, [facility], [address], [place], [place], [address], [place] tel:[phone] [facility] back pain (chief complaint) anxiety (chief complaint) ADD (chief complaint) LumbagoAttention deficit disorder of childhood without mention of hyperactivityGenera lized anxiety disorder Kush- 3 Moisés Calderon. [address], [place], [place], [address] , [place]. tel:[phone] Referring Provider: Kvng Curiel, [address], [place], [place], [address]. tel:[phone] OFFICE/OUTPA TIENT VISIT, [facility], [address], [place], [place], [address], [place] tel:[phone] [facility] back pain (chief complaint) anxiety (chief complaint) ADD (chief complaint) Generalized anxiety disorderAttention deficit disorder of childhood without mention of hyperactivityLumbag o 3 Moisés Calderon. [address], [place], [place], [address] , [place]. [phone] Referring Provider: Kvng Curiel [address], [place], [place], [address]. tel:[phone] OFFICE/OUTPA TIENT VISIT, [facility], [address], [place], [place], [address], [place] tel:[phone] [facility] back pain (chief complaint) anxiety (chief complaint) ADD (chief complaint) LumbagoAttention deficit disorder of childhood without mention of hyperactivityGenera lized anxiety disorder Apr-3 3 Moisés Calderon. [address], [place], [place], [address] , [place]. tel:[phone] Referring Provider: Kvng Curiel [address], [place], [place], [address]. tel:[phone] OFFICE/OUTPA TIENT VISIT, [facility], [address], [place], [place], [address], [place] tel:[phone] [facility] back pain (chief complaint) anxiety (chief complaint) ADD (chief complaint) LumbagoAttention deficit disorder of childhood without mention of hyperactivityGenera lized anxiety disorder Apr-0 2-201 3 Moisés Calderon. [address], [facility] A, [place], [place], [address] , [place]. tel:[phone] Referring Provider: Kvng Curiel, [address], [place], [place], [address]. tel:[phone] OFFICE/OUTPA TIENT VISIT, EST [facility], [address], [place], [place], [address], [place] tel:[phone] [facility] ADD (chief complaint) Attention deficit disorder of childhood without mention of hyperactivity 3 Moisés Calderon. [address], [facility] A, [place], [place], [address] , [place]. tel:[phone] Referring Provider: Kvng Curiel, [address] [facility] [address], [place], [place], [address]. tel:[phone] Family History Family Member Type Diagnosis Age [...] Mental Status Date Cognitive Assessment Orientation - [place] ed to time, place, person, situation.
[2025-04-08 17:58] VITALS: BP 120/71; PULSE 91; RESP 18; TEMP 36.9; O2SAT 100
[2025-04-08 18:09] LABS: EDSTREPNEGPOS1 Negative (Negative)
[2025-04-08 18:13] LABS: EDCOVIDSCREEN Negative (Negative); EDINFLUASCREEN Negative (Negative); EDINFLUBSCREEN Negative (Negative)
--- NOTE | 2025-04-08 19:15 | ED.URI ---
HPI - URI/Sore Throat General Chief Complaint: Upper Respiratory Infection Stated Complaint: Congestion/Low Back Pain Time Seen by Provider: 04/08/25 18:00 Source: patient and RN notes reviewed Mode of arrival: ambulatory Limitations: no limitations History of Present Illness HPI Narrative: 39-year-old female presents to the [facility] complaining of upper respiratory symptoms since yesterday. Patient reports cough, congestion, sore throat since yesterday. Patient works in a residential. Patient also reports right upper back pain for the last 3 weeks. Patient was diagnosed with shingles was given prescriptions for it, the rash is almost fully resolved however she reports continuous pain. Patient is a given a course of steroids, antivirals and pain medications. Patient has not tried the pain medications yet. Patient denies any fevers, chest pain, difficulty breathing, nausea vomiting, or any other symptoms. Related Data Home Medications ?Medication ?Instructions ?Recorded ?Confirmed ?Last Taken ?Type clonazepam 0.5 mg tablet mg 03/11/25 Unknown History dextroamphetamine-amphetamine 20 03/11/25 Unknown History mg tablet Allergies Allergy/AdvReac Type Severity Reaction Status Date / Time latex Allergy Rash Verified 04/08/25 17:57 Penicillins Allergy Rash Verified 04/08/25 17:57 Sulfa (Sulfonamide Allergy Rash Verified 04/08/25 17:57 Antibiotics) Review of Systems Review of Systems: CONSTITUTIONAL: Denies fever, chills, or sweats. EYES: Denies visual changes, redness, or discharge. ENT: Denies rhinorrhea, or otalgia. Positive for congestion and sore throat. CARDIOVASCULAR: Denies chest pain, palpitations, or edema. RESPIRATORY: Positive for cough. Negative for wheezing or Dyspnea. GASTROINTESTINAL: Denies abdominal pain, nausea, vomiting, or diarrhea. GENITOURINARY: Denies dysuria or hematuria. SKIN: Denies rash or itching. MUSCULOSKELETAL: Denies back pain, joint pain, or myalgia. NEUROLOGIC: Denies headache, numbness, or weakness. PSYCHIATRIC: Denies anxiety or depression. All other systems reviewed are negative, except as documented in HPI. [facility] Past Medical History Medical History History of ADHD Social History Social History Substance use: never Comments At the time of my signature, I reviewed and agree with the nursing past medical, surgical, social, and family history. There is no relevant family history pertinent to the patient complaint. Exam Narrative: GENERAL: This is a well-nourished, well-developed adult, in no apparent distress. They are non ill-appearing, nontoxic appearing. HEAD: normocephalic, atraumatic. EYES: Sclera clear/white. Conjunctiva normal. Vision is grossly intact. Extraocular movements intact EARS: External ears normal, auditory canals clear and without drainage, TMs normal without perforation. Hearing grossly intact. NOSE: External nose normal with no obvious nasal discharge, nasal turbinates erythematous, no rhinorrhea. THROAT: Mucous membranes moist, posterior pharynx erythema without swelling. No exudate. Uvula midline. Postnasal drip present. NECK: Neck supple, non-tender without lymphadenopathy, masses or thyromegaly. CARDIOVASCULAR: Regular rate and rhythm without murmurs, gallops, or rubs. RESPIRATORY: Clear to auscultation. Breath sounds equal bilaterally. No wheezes, rales, or rhonchi. SKIN: My upper back: Mild redness to the right upper back no vesicles or papules. Nontender to palpate. No area of fluctuance or induration. No exudate. NEURO: awake, alert, and oriented to person, place and time. There were no obvious focal neurologic abnormalities. EXTREMITIES: No joint tenderness, effusion, or edema noted. BACK: Nontender without deformity. No CVA tenderness. Course Course Emergency Course: Portions of this record may have been created with voice recognition software Level of Care: Express Care Visit Vital Signs Vital signs: Vital Signs Temperature 98.4 F 04/08/25 17:58 Pulse Rate 91 04/08/25 17:58 Respiratory Rate 18 04/08/25 17:58 Blood Pressure 120/71 04/08/25 17:58 Pulse Oximetry 100 04/08/25 17:58 Oxygen Delivery Room Air 04/08/25 17:58 Temperature 98.4 F 04/08/25 17:58 Pulse Rate 91 04/08/25 17:58 Respiratory Rate 18 04/08/25 17:58 Blood Pressure 120/71 04/08/25 17:58 Pulse Oximetry 100 04/08/25 17:58 Oxygen Delivery Room Air 04/08/25 17:58 Reviewed MDM - URI/Sore Throat MDM Narrative Medical decision making narrative: Rapid strep, COVID, flu are negative. A throat culture is pending. Patient's symptoms likely related to viral upper respiratory infection. Patient's back pain is likely residual pain from her recent shingles infection. Advised patient to take her prescriptions as directed by primary to help with the pain. Discussed physical exam findings. Advised supportive measures and signs/symptoms to go to the ER. Pt is appropriate for outpt treatment and f/u. Differential Diagnosis Differential diagnosis: Likely upper respiratory infection, sinusitis, pharyngitis and other (Neuritis, shingles) Lab Data Attestation: I reviewed the patient's lab results. Labs: Lab Results 04/08/25 04/08/25 Range/Units 18:07 18:12 POC Influenza A Ag Negative (Negative) POC Influenza B Ag Negative (Negative) POC SARS CoV-2 Ag Negative (Negative) POC Grp A Strep Screen Negative (Negative) Critical Care Time Critical Care Time Critical Care Time: No Discharge Plan Discharge Clinical Impression: Upper respiratory infection, Acute pain associated with herpes zoster Patient Disposition: Home Condition: Stable Instructions: Antibiotic Form Additional Instructions: The pain in her back is likely related to nerve pain from your recent shingles infection. Take the medicine as prescribed to you by your doctor as directed as it may help with the pain. Your rapid strep swab, flu, COVID was negative today at [facility]. You will be notified in a few days if the culture comes back positive for strep, and appropriate antibiotics will be called in for you at that time. Your symptoms are likely due to a viral illness, which is not treated with antibiotics. Viral symptoms can be present for up to 10-14 days. Take Tylenol or ibuprofen for fever or pain. Although instruction on the bottle Rest and stay hydrated. Follow up with your PCP in 3-5 days if symptoms are not improving. Go to the ER immediately if you develops difficulty breathing, fevers or difficulty swallowing Patient Language: Telugu Prescriptions: No Action clonazepam 0.5 mg tablet dextroamphetamine-amphetamine 20 mg tablet cyclobenzaprine 10 mg tablet 10 mg PO TID PRN (Reason: muscle spasm) Qty: 10 0RF methylprednisolone [Medrol (Juan)] 4 mg tablets,dose pack See Rx Instructions .ROUTE .COMPLEX Qty: 21 0RF Rx Instructions: orally per package directions Follow-up/Referrals: Alex Aaron DO [Primary Care Provider] - Stand Alone Forms: Work/School Release IP Time of Disposition: 18:22
== END 2025-04-08 18:28 | disposition home or self-care (01) ==
PROVIDERS: PCP Family Medicine
DX: J06.9 Acute upper respiratory infection, unspecified (principal); M54.6 Pain in thoracic spine; B02.9 Zoster without complications; Z20.822 Contact with and (suspected) exposure to COVID-19; F90.9 Attention-deficit hyperactivity disorder, unspecified type
CPT/HCPCS: 87081; 87426; 87804; 87880; 99213; G0463

== ENCOUNTER 2025-05-01 12:49 | Emergency (ER) | payer OTHER, SELFPAY ==
--- NOTE | ~2025-05-01 | XR_ITS ---
EXAMINATION: XR chest 1V portable, 05/01/2025 12:55 CDT HISTORY: chest pain, SOB, cough, congestion COMPARISON: No comparisons available. Technique: Single view. Findings: The lungs are clear, no effusion. No pneumothorax. Heart is normal size. Mediastinal and hilar contours are within normal limits. Bony thorax no acute abnormality. Impression: No acute cardiopulmonary abnormality. Reviewed, dictated and finalized at location A. Impression: No acute cardiopulmonary abnormality.
[2025-05-01 12:50] VITALS: BP 142/99; PULSE 95; RESP 18; TEMP 36.7; O2SAT 97
--- OUTSIDE RECORDS SUMMARY | 2025-05-01 13:26 | XMS_ITS | Clinical Summary ---
Author Organization [facility] Address [address] [place] [address] Phone Care Team Providers Care Tentmaker Name Role Phone Provider, None Primary Care [...] 03/08/2025 2:14 PM CDT Emergency [facility] Emergency [address] [place] [address] Keshia Mak PAC Dysuria Discharge Disposition: Discharged [...] Urine HCG () (03/08/2025 1:33 PM CDT) [facility] POC URINE Negative POC URINE CONTROL Gasket Supervisor Pass Urine 03/08/2025 1:33 PM CDT Keshia William Page PAC POINT OF CARE TESTING (KEL Bailey) Final Result * (ABNORMAL) URINALYSIS REFLEX IF INDICATED BY ABNORMAL RESULTS (03/08/2025 1:30 PM CDT) [facility] SPECIFIC GRAVITY 1.020 1.003 - 1.030 03/08/2025 2:01 PM CDT [facility] URINE PH 6.0 5.0 - 9.0 03/08/2025 2:01 PM CDT [facility] WBC ESTERASE Negative Negative 03/08/2025 2:01 PM CDT [facility] NITRITE Negative Negative 03/08/2025 2:01 PM CDT [facility] PROTEIN, RANDOM URINE 30 mg/dL(A) Negative 03/08/2025 2:01 PM CDT [facility] URINE GLUCOSE, QUAL Negative Negative 03/08/2025 2:01 PM CDT [facility] URINE KETONES 5 mg/dL(A) Negative 03/08/2025 2:01 PM CDT [facility] UROBILINOGEN Normal Normal mg/dL 03/08/2025 2:01 PM CDT [facility] URINE BLOOD Negative Negative nirav/ul 03/08/2025 2:01 PM CDT [facility] URINALYSIS COLOR Yellow 03/08/20 2:01 PM CDT [facility] URINALYSIS CLARITY Slightly Cloudy 03/08/2025 2:01 PM CDT [facility] WBC (Urine) 0-5 Negative, 0-5 /hpf 03/08/2025 2:01 PM CDT [facility] URINE RBC'S 0-2 Negative, 0-2 /hpf 03/08/2025 2:01 PM CDT [facility] EPITHELIAL CELLS Moderate amount /lpf 03/08/2025 2:01 PM CDT [facility] BACTERIA, URINE Few(A) Negative /hpf 03/08/2025 2:01 PM CDT [facility] URINE MUCOUS Few 03/08/2025 2:01 PM CDT [facility] CRYSTALS Calcium oxalate 03/08/2025 2:01 PM CDT [facility] Urine URINE SPECIMEN OBTAINED BY CLEAN CATCH PROCEDURE / Unknown Non-Phlebotomy Collection / Unknown 03/08/2025 1:30 PM CDT 03/08/2025 1:38 PM CDT us Keshia William Page PAC URINE ORDERABLES Final Resul t [facility] [address] [place] [address] from Last 3 Months Insurance MEDICAID [employer] Care Teams Tentmaker Relationship Specialty Start Date End Date Provider, None TARSHA PCP - General 03/08/25
[2025-05-01 14:11] LABS: Influenza A QL RT-PCR Negative (Negative); Influenza B QL RT-PCR Negative (Negative); RSV RNA, RT-PCR Negative (Negative); SARS-CoV-2 RNA PCR Negative (Negative)
--- NOTE | 2025-05-01 14:16 | ED_ITS ---
HPI - URI/Sore Throat General Chief Complaint: Upper Respiratory Infection Stated Complaint: congestion, cough, runny nose Time Seen by Provider: 05/01/25 12:50 Source: patient Mode of arrival: ambulatory Limitations: no limitations History of Present Illness HPI Narrative: this is a 39-year-old female with cough congestion had exposure to COVID work with no fever chills no shortness of breath no audible wheezing no chest pain no diarrhea constipation no nausea or vomiting. MD elicited complaint: cough and nasal congestion Onset (ago): day(s) Consistency: constant Severity: moderate Description of mucous: clear Able to tolerate fluids by mouth: Yes Related Data Home Medications ?Medication ?Instructions ?Recorded ?Confirmed ?Last Taken ?Type cephalexin 500 mg capsule mg 04/03/25 Unknown History clindamycin HCl 150 mg capsule mg 04/03/25 Unknown Hi story clonazepam 0.5 mg tablet mg 04/03/25 Unknown History dextroamphetamine-amphetamine 10 04/03/25 Unknown Hi story mg tablet dextroamphetamine-amphetamine 20 04/03/25 Unknown Hi story mg tablet dextroamphetamine-amphetamine ER PO 04/03/25 Unknown History 30 mg 24hr capsule,extend release gabapentin 300 mg capsule mg 04/03/25 Unknown History hydrocodone 5 mg-acetaminophen 325 tablet 04/03/25 Un known History mg tablet Allergies Allergy/AdvReac Type Severity Reaction Status Date / Time amoxicillin Allergy Mild RASH Verified 05/01/25 12:51 morphine Allergy Mild Hives Verified 05/01/25 12:51 Penicillins Allergy Mild RASH Verified 05/01/25 12:51 latex Allergy Unknown Verified 05/01/25 12:51 Sulfa (Sulfonamide Allergy Hives Verified 05/01/25 12:51 Antibiotics) Review of Systems 2 Review of Systems: All systems reviewed & are unremarkable except as noted in HPI and below PMFSH Past Medical History Medical History Overweight (BMI 25.0-29.9) Anxiety Seizure disorder remote history. 2 seizures 10 years ago. Surgical History Surgical History No history of previous surgery Family History Family History Other No acute medical problems Social History Social History Smoking status: Former smoker Gender identity (if verbalized by the patient): Female Exam Const: General: healthy appearing and no acute distress Nutritional Appearance: well nourished Orientation/consciousness: patient oriented x3 Limitations: no limitations HENMT: Head: normal to inspection Eyes: Conjunctivae: conjunctivae normal Neck: Neck: normal visual inspection Chest: Chest palpation & inspection: normal inspection of the chest Resp: Effort & Inspection: normal respiratory effort Auscultation: rhonchi Cardio: Rate: regular rate Rhythm: regular rhythm GI: GI Palp: Yes Soft to palpation Auscultation: normal bowel sounds : General: Yes bladder normal to palpation Urinary Catheter: Urinary Catheter: patent and draining Skin: General skin exam: normal color Rashes: no rashes Course Course Emergency Course: COVID RSV influenza negative chest x-ray performed shows no acute cardiopulmonary abnormalities. Vital Signs Vital signs: Vital Signs Temperature 36.7 C 05/01/25 12:50 Pulse Rate 95 05/01/25 12:50 Respiratory Rate 18 05/01/25 12:50 Blood Pressure 142/99 H 05/01/25 12:50 Pulse Oximetry 97 05/01/25 12:50 Oxygen Delivery Room Air 05/01/25 12:50 Temperature 36.7 C 05/01/25 12:50 Pulse Rate 95 05/01/25 12:50 Respiratory Rate 18 05/01/25 12:50 Blood Pressure 142/99 H 05/01/25 12:50 Pulse Oximetry 97 05/01/25 12:50 Oxygen Delivery Room Air 05/01/25 12:50 MDM - URI/Sore Throat Lab Data Labs: Lab Results 05/01/25 Range/Units 13:05 Influenza A (RT-PCR) Negative (Negative) Influenza B (RT-PCR) Negative (Negative) RSV (RT-PCR) Negative (Negative) SARS-CoV-2 RNA (RT-PCR) Negative (Negative) Critical Care Time Critical Care Time Critical Care Time: No Discharge Plan Discharge Clinical Impression: Upper respiratory infection Qualifiers: URI type: unspecified URI Qualified Code(s): J06.9 - Acute upper respiratory infection, unspecified Patient Disposition: Home Condition: Stable Instructions: Antibiotic Form, Upper Respiratory Infection (ED) Additional Instructions: advised to take medication as prescribed and to follow with primary care physician within 1 week further evaluation and treatment. Patient Language: Lithuanian Prescriptions: New azithromycin [Zithromax Z-Juan] 250 mg tablet See Rx Instructions .ROUTE .COMPLEX Qty: 6 0RF Rx Instructions: For 250 mg dose pack: take 500 mg today (day 1), then 250 mg for 4 days (days 2-5) No Action meloxicam 15 mg tablet 15 mg PO DAILY Qty: 10 0RF hydrocodone-acetaminophen 5-325 mg tablet dextroamphetamine-amphetamine 10 mg tablet clonazepam 0.5 mg tablet clindamycin HCl 150 mg capsule cephalexin 500 mg capsule dextroamphetamine-amphetamine 20 mg tablet gabapentin 300 mg capsule dextroamphetamine-amphetamine 30 mg capsule,extended release 24hr PO methylprednisolone [Medrol (Juan)] 4 mg tablets,dose pack See Rx Instructions .ROUTE .COMPLEX Qty: 21 0RF Rx Instructions: for 6 days doxycycline hyclate 100 mg tablet 100 mg PO BID Qty: 20 0RF valacyclovir 1 gram tablet 1,000 mg PO TID 7 Days Qty: 21 0RF Follow-up/Referrals: Alex Aaron DO [Primary Care Provider, [facility]] Time of Disposition: 14:19
[2025-05-01 14:25] VITALS: BP 135/92; PULSE 69; RESP 16; TEMP 36.6; O2SAT 100
== END 2025-05-01 14:26 | disposition home or self-care (01) ==
PROVIDERS: Emergency Provider Emergency Medicine; PCP Family Medicine
DX: J06.9 Acute upper respiratory infection, unspecified (principal); Z87.891 Personal history of nicotine dependence; Z20.822 Contact with and (suspected) exposure to COVID-19
CPT/HCPCS: 71045; 87637; 99283